=== PATIENT | male | born 1960 | race Caucasian/White ===

== ENCOUNTER 2017-06-22 21:31 | Emergency (ER) | payer OTHER ==
[~2017-06-22] VITALS: Ht 182.9 cm; Wt 108.9 kg
[2017-06-22] MEDS ORDERED: Prednisone50 MG PO (23:21)
[2017-06-22] MEDS ORDERED: BENZ100A PO (23:21)
[2017-06-22] MEDS ORDERED: Zithromax250 MG PO (23:21)
[2017-06-22] MEDS ORDERED: ALBU2.5V5 NEB (23:21)
== END 2017-06-22 23:34 | disposition home or self-care (01) ==
LOC: ER 21:31
DX: R05 Cough (principal); F17.210 Nicotine dependence, cigarettes, uncomplicated; Z79.52 Long term (current) use of systemic steroids; Z79.2 Long term (current) use of antibiotics; Z79.899 Other long term (current) drug therapy
CPT/HCPCS: 71046; 94640; 99284

== ENCOUNTER 2017-07-02 22:00 | Emergency (ER) | payer OTHER ==
[~2017-07-02] VITALS: Ht 182.9 cm; Wt 108.9 kg
[~2017-07-02 22:00] MED LIST: ALBU2.5V5 NEB; BENZ100A PO; Prednisone50 MG PO; Zithromax250 MG PO
[2017-07-02] MEDS ORDERED: Prednisone20 MG PO (23:41)
[2017-07-02] MEDS ORDERED: BENZ100A PO (23:50)
== END 2017-07-03 00:04 | disposition home or self-care (01) ==
LOC: ER 22:00
DX: J06.9 Acute upper respiratory infection, unspecified (principal); F17.210 Nicotine dependence, cigarettes, uncomplicated
CPT/HCPCS: 71046; 93005; 93010; 94640; 99284

== ENCOUNTER 2017-07-31 22:39 | Emergency (ER) | payer OTHER ==
[~2017-07-31 22:39] MED LIST changes: +NICO21TP TD; +Prednisone20 MG PO
== END 2017-07-31 22:52 | disposition left against medical advice (07) ==
LOC: ER 22:39
DX: Z53.21 Procedure and treatment not carried out due to patient leaving prior to being seen by health care provider (principal)

== ENCOUNTER 2018-04-06 02:09 | Emergency (ER) | payer OTHER ==
[~2018-04-06] VITALS: Ht 182.9 cm; Wt 108.9 kg
[2018-04-06] MEDS ORDERED: METF500C PO ×2 (02:24→04:58)
== END 2018-04-06 02:51 | disposition left against medical advice (07) ==
LOC: ER 02:09
DX: Z53.21 Procedure and treatment not carried out due to patient leaving prior to being seen by health care provider (principal)

== ENCOUNTER 2018-04-06 04:42 | Emergency (ER) | payer OTHER ==
[~2018-04-06] VITALS: Ht 182.9 cm; Wt 108.9 kg
[~2018-04-06 04:42] MED LIST changes: +METF500C PO
[2018-04-06] MEDS ORDERED: METF500C PO (04:58)
== END 2018-04-06 05:14 | disposition home or self-care (01) ==
LOC: ER 04:42
DX: Z76.0 Encounter for issue of repeat prescription (principal); Z79.84 Long term (current) use of oral hypoglycemic drugs; E11.9 Type 2 diabetes mellitus without complications; F17.210 Nicotine dependence, cigarettes, uncomplicated
CPT/HCPCS: 99281

== ENCOUNTER 2021-10-26 23:29 | Inpatient (IN) | payer OTHER ==
[~2021-10-26] VITALS: Ht 182.9 cm; Wt 107.2 kg
[2021-10-27 00:05] LABS: BASOPHILS ABSOLUTE AUTO 0.11 K/mm3 (0.00-0.23); BASOPHILS PERCENT AUTO 1 % (0-2); EOSINOPHILS ABSOLUTE AUTO 0.23 K/mm3 (0.00-0.68); EOSINOPHILS PERCENT AUTO 1 % (0-6); Hematocrit 45.3 % (37.0-53.0); Hemoglobin 15.6 g/dL (13.5-17.5); IMMATURE GRAN ABSOLUTE AUTO 0.12 K/mm3 (0.00-0.10); IMMATURE GRAN PERCENT AUTO 1 % (0-1); LYMPHOCYTES ABSOLUTE AUTO 1.04 K/mm3 (0.84-5.20); LYMPHOCYTES PERCENT AUTO 4 % (21-46); MONOCYTES ABSOLUTE AUTO 1.04 K/mm3 (0.16-1.47); MONOCYTES PERCENT AUTO 4 % (4-13); Mean Corpuscular HGB 29.7 pg (26.0-34.0); Mean Corpuscular HGB Conc 34.4 g/dL (31.5-36.5); Mean Corpuscular Volume 86 fL (80-100); NEUTROPHILS ABSOLUTE AUTO 21.34 K/mm3 (1.96-9.15); NEUTROPHILS PERCENT AUTO 89 % (41-73); Platelet Count 291 K/mm3 (150-400); RDW Coefficient Variation 12.8 % (11.7-14.2); RDW Standard Deviation 39.9 fL (35.1-46.3); Red Blood Cell Count 5.25 M/mm3 (4.30-5.90); White Blood Cell Count 23.88 K/mm3 (4.00-11.30)
[2021-10-27 00:29] LABS: Alanine Aminotransfer (ALT/SGP 13 U/L (12-78); Albumin, Blood 3.4 g/dL (3.4-5.0); Alk Phos 112 U/L (50-136); Anion Gap 3 mmol/L (6-16); Aspartate Aminotrans (AST/SGOT 20 U/L (12-37); Bilirubin, Total 0.6 mg/dL (0.1-1.0); Blood Urea Nitrogen 13 mg/dL (8-24); Bun/Creatinine Ratio 16.6 (12.0-20.0); CO2, Blood 30 mmol/L (21-32); Calcium, Blood 8.9 mg/dL (8.5-10.1); Chloride, Blood 104 mmol/L (98-108); Creatinine, Blood 0.78 mg/dL (0.60-1.20); Ethanol (Alcohol), Blood, Med <3 mg/dL; Globulin, Blood 3.5 g/dL (2.2-4.0); Glomerular Filtration Rate 101 (60-); Glucose, Blood 209 mg/dL (70-99); Potassium, Blood 3.5 mmol/L (3.5-5.5); Sodium, Blood 137 mmol/L (136-145); Total Protein, Blood 6.9 g/dL (6.4-8.2)
[2021-10-27 00:52] LABS: Influenza A, PCR NEGATIVE (NEGATIVE); Influenza B, PCR NEGATIVE (NEGATIVE); Resp Syncytial Virus, PCR NEGATIVE (NEGATIVE); SARS-Cov-2 (COVID-19) PCR, MMC NEGATIVE (NEGATIVE)
[2021-10-27 04:15] LABS: U Amphetamine Screen DETECTED; U Barbituate Screen Not Detected; U Benzodiazapine Screen Not Detected; U Buprenorphine Screen Not Detected; U Cannabinoids Screen Not Detected; U Cocaine Screen Not Detected; U Methadone Screen Not Detected; U Methamphetamine Screen DETECTED; U Opiates Screen Not Detected; U Oxycodone Screen Not Detected; U Phencyclidine Screen Not Detected; U Propoxyphene Screen Not Detected
[2021-10-27 05:53] LABS: Albumin, Blood 2.9 g/dL (3.4-5.0); Anion Gap 9 mmol/L (6-16); Blood Urea Nitrogen 13 mg/dL (8-24); Bun/Creatinine Ratio 19.9 (12.0-20.0); CO2, Blood 25 mmol/L (21-32); Calcium, Blood 7.9 mg/dL (8.5-10.1); Chloride, Blood 107 mmol/L (98-108); Creatinine, Blood 0.65 mg/dL (0.60-1.20); Glomerular Filtration Rate 107 (60-); Glucose, Blood 227 mg/dL (70-99); Phosphorus, Blood 3.6 mg/dL (2.5-4.9); Potassium, Blood 3.8 mmol/L (3.5-5.5); Sodium, Blood 141 mmol/L (136-145)
[2021-10-27 06:13] LABS: Hematocrit 44.3 % (37.0-53.0); Hemoglobin 15.2 g/dL (13.5-17.5); Mean Corpuscular HGB 29.9 pg (26.0-34.0); Mean Corpuscular HGB Conc 34.3 g/dL (31.5-36.5); Mean Corpuscular Volume 87 fL (80-100); Mean Platelet Volume 10.1 fL (9.1-12.4); Platelet Count 282 K/mm3 (150-400); RDW Coefficient Variation 12.7 % (11.7-14.2); RDW Standard Deviation 40.4 fL (35.1-46.3); Red Blood Cell Count 5.09 M/mm3 (4.30-5.90); White Blood Cell Count 36.35 K/mm3 (4.00-11.30)
[2021-10-27 06:38] LABS: BAND PERCENT MAN 16 % (0-8); BASOPHILS PERCENT MAN 0 % (0-2); EOSINOPHILS ABSOLUTE MAN 0.36 K/mm3 (0.00-0.68); EOSINOPHILS PERCENT MAN 1 % (0-6); LYMPHOCYTES ABSOLUTE MAN 2.18 K/mm3 (0.84-5.20); LYMPHOCYTES PERCENT MAN 6 % (21-46); MONOCYTES ABSOLUTE MAN 1.09 K/mm3 (0.16-1.47); MONOCYTES PERCENT MAN 3 % (4-13); NEUTROPHILS ABSOLUTE MAN 32.71 K/mm3 (1.96-9.15); SEG NEUTROPHILS PERCENT MAN 74 % (41-73); TOTAL CELLS COUNTED 100
--- NOTE | 2021-10-27 07:35 | NUR ---
ASSUMED CARE PT ARRIVED AT APPROX 06:15 VIA GURNEY. PT ALERT AND ORIENTED. DENIED CHEST PAIN OR SOB. PT ON 2L NC WITH SATS ABOVE 92%. BILAT LOWER EXT TENDER TO TOUCH, RED WITH DISCOLORATION, PICS IN CHART. HR IN THE 90-100'S. CALL LIGHT IS WITHIN REACH.
--- NOTE | 2021-10-27 10:46 | NUR ---
CARE ASSUMPTION THIS RN ASSUMED CARE AT 0700 FROM [facility]. VSS. TELE SR/ST 80-105. PATIENT IS ALERT AND ORIENTED X4. PERRLA. PATIENT REPORTS NUMBNESS AND TINGLING TO HIS UPPER AND LOWER EXTREMITIES THAT PATIENT STATES IS BASELINE. PATIENT REPORTS NO CHEST PAIN/PRESSURE. EDEMA IN LOWER EXTREMITIES BILATERALLY +2. STRONG PULSES RADIAL AND PEDIS BILATERALLY. PATIENT ABD IS DISTENDED WHICH PATIENT STATES IS NORMAL, AND IT IS FIRM AND ACTIVE. PATIENT HAD A BM THIS AM. PATIENT HAS URGENCY WITH URINATION. BEDSIDE URINAL IS CLOSE BY TO HELP WITH THIS. PATIENT REPORTS NO SHORTNESS OF BREATH. CLEAR UPPER LOBES AND DIM LOWER LOBES. PATIENT HAS CELLULITIS TO BILATERAL LOWER EXTREMITIES. IT IS RED AND WARM TO TOUCH. PICTURES IN THE CHART. PATIENT IS INDEPDENT IN ADLS AND WALKING, BUT THIS RN EDUCATED THE PATIENT TO CALL FOR A STAND BY MARTINE DUE TO HAVING FLUIDS GOING. PATIENT VERBALIZED UNDERSTANDING. PATIENT IS IN THE BEDSIDE CHAIR AND CALL LIGHT WITHIN REACH. MD ZALDIVAR AND ISELA IN TO SEE THE PATIENT THIS AM AND DISCUSSED PLAN OF CARE. PLAN OF CARE IS UP TO DATE.
--- NOTE | 2021-10-27 17:54 | NUR ---
SHIFT SUMMARY PATIENT NEURO REMAINS THE SAME. PATIENT HAS SLEPT OFF AND ON THROUGHOUT THE DAY. PATIENT SON CAME INTO VISIT HIM. THIS RN UPDATED THE FAMILY ON PATIENT CONDITION. NO ACUTE CHANGES THIS SHIFT. CALL LIGHT WITHIN REACH AND BED IN LOWEST POSITION. WILL CONTINUE TO MONITOR AND PROVIDE CARE UNTIL HAND OFF WITH NEXT SHIFT.
[2021-10-28 04:57] LABS: BASOPHILS ABSOLUTE AUTO 0.09 K/mm3 (0.00-0.23); BASOPHILS PERCENT AUTO 1 % (0-2); EOSINOPHILS ABSOLUTE AUTO 0.16 K/mm3 (0.00-0.68); EOSINOPHILS PERCENT AUTO 1 % (0-6); Hematocrit 44.2 % (37.0-53.0); Hemoglobin 14.8 g/dL (13.5-17.5); IMMATURE GRAN ABSOLUTE AUTO 0.12 K/mm3 (0.00-0.10); IMMATURE GRAN PERCENT AUTO 1 % (0-1); LYMPHOCYTES ABSOLUTE AUTO 1.32 K/mm3 (0.84-5.20); LYMPHOCYTES PERCENT AUTO 7 % (21-46); MONOCYTES PERCENT AUTO 6 % (4-13); Mean Corpuscular HGB 29.4 pg (26.0-34.0); Mean Corpuscular HGB Conc 33.5 g/dL (31.5-36.5); Mean Corpuscular Volume 88 fL (80-100); Mean Platelet Volume 10.5 fL (9.1-12.4); NEUTROPHILS PERCENT AUTO 85 % (41-73); Platelet Count 246 K/mm3 (150-400); RDW Coefficient Variation 12.9 % (11.7-14.2); Red Blood Cell Count 5.03 M/mm3 (4.30-5.90); White Blood Cell Count 17.99 K/mm3 (4.00-11.30)
[2021-10-28 05:15] LABS: Albumin, Blood 2.9 g/dL (3.4-5.0); Anion Gap 3 mmol/L (6-16); Blood Urea Nitrogen 12 mg/dL (8-24); Bun/Creatinine Ratio 17.3 (12.0-20.0); CO2, Blood 31 mmol/L (21-32); Calcium, Blood 8.5 mg/dL (8.5-10.1); Chloride, Blood 103 mmol/L (98-108); Creatinine, Blood 0.69 mg/dL (0.60-1.20); Glomerular Filtration Rate 105 (60-); Glucose, Blood 187 mg/dL (70-99); Phosphorus, Blood 2.2 mg/dL (2.5-4.9); Potassium, Blood 3.4 mmol/L (3.5-5.5); Sodium, Blood 137 mmol/L (136-145)
--- NOTE | 2021-10-28 06:00 | NUR ---
SHIFT SUMMARY PT A&OX4. AFEBRILE DURING START OF SHIFT, TYLENOL GIVEN X1. SP02>90% ON RA WHILE AWAKE, 2L NC NEEDED DURING SLEEPING, W/O WOULD DIP TO HIGH 80'S. C/O OF COUGH. CALL PLACED TO MD BENTON. MD BENTON W/ ORDERS FOR COUGH MEDS. TELEMETRY SHOWS MOSTLY NSR/SIT, HR 80'S-100S. DENIES PAIN IN LEGS UNLESS BEING TOUCHED. USED URINAL AT BEDSIDE. UP TO BATHROOM TO HAVE LARGE BM X1. LAB CALLED TO REPORT POSITIVE BLOOD CULTURE: GRAM + COCCI IN CLUSTERS. SLEPT MOST OF NIGHT. CALL LIGHT IN REAC.
--- NOTE | 2021-10-28 12:16 | NUR ---
AM NOTE: PATIENT ALERT AND ORIENTED X4. IRRITATED AT TIMES. ABLE OT COMMUNICATE NEEDS AND COOPERATIVE WITH CARES. ON ROOM AIR SATING ABOVE 94%. TELE SHOWING SINUS RHYTHM WITH HR AVERAGING 90'S. AT TIMES PATIENT HAVING SMALL BOUTS OF SVT, NONSYMPTOMATIC. PLAN FOR ECHO TODAY. DENIES CHEST PAIN/PRESSURE. VITAL SIGNS STABLE. DENIES ABDOMINAL PAIN/NAUSEA. EATING WELL. ACHS BLOOD SUGAR CHECKS WITH INSULIN. DISTENDED ABDOMEN, PATIENT STATES NORMAL. BILATERAL LOWER EXTREMITIES RED/WARM AND SWOLLEN. PATIENT STATES THEY DO NOT HURT UNLESS YOU TOUCH THEM. RIGHT POSTERIOR CALF ABRASION/WOUND. CLEANED AND DRESSED THIS AM. SCABS SCATTERED TO BLE. LR AND POTASSIUM PHOS INFUSING AT THIS TIME. CALL LIGHT IN REACH. SITTING IN RECLINER AT THIS TIME. BLOOD CULTURES DRAWN THIS AFTERNOON. WILL CONTINUE TO MONITOR.
--- NOTE | 2021-10-28 18:02 | NUR ---
SHIFT SUMMARY: NO ACUTE CHANGES THROUGHOUT DAY. PATIENT NEURO REMAINS UNCHANGED. TELE SHOWING SINUS RHYTHM WITH HR 90'S. PLAN FOR ECHO TOMORROW. DENIES CHEST PAIN/PRESSURE. ON ROOM AIR SATING 90'S. 1L LR INFUSED WELL K PHOS. ANTIBIOTICS INFUSED THIS AFTERNOON. VITAL SIGNS REMAIN STABLE. CALL LIGHT IN REACH. WILL CONITNUE TO MONITOR AND REPORT OFF TO ONCOMING RN.
[2021-10-29 05:12] LABS: BASOPHILS ABSOLUTE AUTO 0.08 K/mm3 (0.00-0.23); BASOPHILS PERCENT AUTO 1 % (0-2); EOSINOPHILS ABSOLUTE AUTO 0.22 K/mm3 (0.00-0.68); EOSINOPHILS PERCENT AUTO 1 % (0-6); Hematocrit 40.7 % (37.0-53.0); Hemoglobin 13.8 g/dL (13.5-17.5); IMMATURE GRAN ABSOLUTE AUTO 0.08 K/mm3 (0.00-0.10); IMMATURE GRAN PERCENT AUTO 1 % (0-1); LYMPHOCYTES ABSOLUTE AUTO 1.63 K/mm3 (0.84-5.20); LYMPHOCYTES PERCENT AUTO 11 % (21-46); MONOCYTES ABSOLUTE AUTO 1.37 K/mm3 (0.16-1.47); MONOCYTES PERCENT AUTO 9 % (4-13); Mean Corpuscular HGB 29.4 pg (26.0-34.0); Mean Corpuscular HGB Conc 33.9 g/dL (31.5-36.5); Mean Corpuscular Volume 87 fL (80-100); Mean Platelet Volume 10.6 fL (9.1-12.4); NEUTROPHILS ABSOLUTE AUTO 11.85 K/mm3 (1.96-9.15); NEUTROPHILS PERCENT AUTO 78 % (41-73); Platelet Count 247 K/mm3 (150-400); RDW Coefficient Variation 12.7 % (11.7-14.2); RDW Standard Deviation 40.4 fL (35.1-46.3); White Blood Cell Count 15.23 K/mm3 (4.00-11.30)
[2021-10-29 05:57] LABS: Albumin, Blood 2.7 g/dL (3.4-5.0); Anion Gap 7 mmol/L (6-16); Blood Urea Nitrogen 11 mg/dL (8-24); Bun/Creatinine Ratio 17.3 (12.0-20.0); CO2, Blood 27 mmol/L (21-32); Calcium, Blood 8.2 mg/dL (8.5-10.1); Chloride, Blood 103 mmol/L (98-108); Creatinine, Blood 0.64 mg/dL (0.60-1.20); Glomerular Filtration Rate 107 (60-); Glucose, Blood 195 mg/dL (70-99); Phosphorus, Blood 3.1 mg/dL (2.5-4.9); Potassium, Blood 3.5 mmol/L (3.5-5.5); Sodium, Blood 137 mmol/L (136-145)
--- NOTE | 2021-10-29 06:05 | NUR ---
SHIFT SUMMARY PT ALERT, AGITATED. SP02>90% ON 2L NC WHILE SLEEPING, RA WHILE AWAKE. MOIST, HARSH COUGH. COUGH MEDS GIVEN X1. TELEMETRY SHOWS MOSTLY SINUS TACH, 100'S. DOES INCREASED TO 140'S FREQUENTLY. FEBRILE. TEMP 100.5-101 THIS SHIFT, ORALLY. PT C/O OF CHILLS, BEING COLD. UP TO BATHROOM TO URINATE. SLEPT OFF AND ON DURING NIGHT. SON IN ROOM SLEEPING DURING SHIFT. CALL LIGHT IN REACH.
--- NOTE | 2021-10-29 09:12 | NUR ---
AM NOTE: PATIENT ALERT AND ORIENTED X4. NEURO AT BASELINE. NUMBNESS AND TINGLING TO HANDS AND FEET. UP IND TO BATHROOM. SON IN ROOM THIS AM. ON ROOM AIR WHEN AWAKE AND SATING ABOVE 94%. DENIES COUGH. AT TIMES SOB WHEN UP MOVING AROUND. LUNGS SOUNDING CLEAR AND DIM IN BASES. DENIES ABDOMINAL PAIN/NAUSEA. ATE BREAKFAST THIS AM. DISTENDED ABDOMEN WITH HX OF HERNIA REPAIR. USING URINAL AT BEDSIDE. TELE SHOWING SINUS RHYTHM - SINUS TACH WITH HR 80-100'S. AT TIMES UP TO 120-130'S WHEN UP MOVING AROUND. EPISODES OF SVT YESTERDAY, ALTHOUGH NO NEW TELE EVENTS THIS AM. DENIES CHEST PAIN/PRESSURE. DENIES PALPIATIONS. BLE EDEMA. BLE CELLULITIS/REDNESS. ABRASION/WOUND TO RIGHT POSTERIOR CALF - CLEANED AND DRESSED THIS AM. SCATTERED SCABS. DENIES NEEDS AT THIS TIME. ANTIBIOTICS INFUSED THIS AM. CALL LIGHT IN REACH. WILL CONTINUE TO MONITOR.
--- NOTE | 2021-10-29 12:28 | NUR ---
CONVERSION TO AFIB AT 11:50ISH. HR SUSTAINING 140'S ON AVERAGE AT TIMES TOUCHING 150-160'S. NONSYMPTOMATIC. LAYING IN BED. BP STABLE, SEE CHARTED VITALS. CALL PLACED TO DR. ZALDIVAR. SEE EMAR FOR IV METOPROLOL THAT WAS GIVEN. PATIENT HR REMAINS 130'S-140'S. CALL PLACED TO DR. ZALDIVAR TO BE UPDATED ON HR POST IV METOPROLOL, MESSAGE LEFT WILL TRY TO CALL AGAIN.
--- NOTE | 2021-10-29 12:46 | NUR ---
SPOKE WITH DR WEISS REGARDING HR SUSTAINING 140'S POST IV METOPROLOL. PLAN FOR IV PUSH CARDIZEM, AND 1X ORDER STAT METOPROLOL TARTRATE. NO ORDERS FOR THIS RN TO PLACE AT THIS TIME. VERBAL ORDERS TO MONITOR FOR 2 HOURS POST ADMINISTRATION OF IV CARDIZEM AND PO METOPROLOL. IF HR NOT BETTER IN [address] CALL TO DR. WEISS.
--- NOTE | 2021-10-29 13:17 | NUR ---
IV PUSH CARDIZEM GIVEN WELL PO METOPROLOL TARTRATE. BP REMAINS STABLE. WILL CONTINUE TO MONITOR FOR [address] ZALDIVAR AND DR. WEISS. PATIETN DENIES SYMPTOMS. LAYING IN BED AT THIS TIME WANTING TO TAKE A NAP.
--- NOTE | 2021-10-29 15:52 | NUR ---
DR. WEISS UPDATED ON HR. HR TRENDING 110'S. NO NEW ORDERS AT THIS TIME. PLAN FOR PATIENT TO GET SCHEDULED DOSE OF PO METOPROLOL TARTRATE THIS EVENING AND CONTINUE TO MONITOR. VITAL SIGNS STABLE. DENIES NEEDS. WILL CONTINUE TO MONITOR.
--- NOTE | 2021-10-29 18:10 | NUR ---
SHIFT SUMMARY: PATIENT SLEEPING AT THIS TIME. HR 110-120'S. DENIES SYMPTOMS. BP STABLE. ORAL TEMP MAX 99.0. REMAINS ON ROOM AIR. SON REMAINS AT BEDSIDE. ANTIBIOTICS INFUSED. RIGHT POSTERIOR CALF WOUND CLEANSED AND DRESSING CHANGED. PATIENT COMPLAINS OF MOUTH/GUMS BEING SORE. THIS RN ASSESSED. GUMS PINK/RED IN COLOR SOME BROKEN/DECAYING TEETH. [facility] SOFT GROUND DIET ORDERED. NO OPEN SORES NOTED. COMPLAINED OF HEADACHE THIS SHIFT, MEDICATED PER EMAR WITH GOOD RELIEF. WILL CONTINUE TO MONITOR AND REPORT OFF TO ONCOMING RN.
[2021-10-30 05:07] LABS: BASOPHILS ABSOLUTE AUTO 0.07 K/mm3 (0.00-0.23); BASOPHILS PERCENT AUTO 1 % (0-2); EOSINOPHILS ABSOLUTE AUTO 0.23 K/mm3 (0.00-0.68); EOSINOPHILS PERCENT AUTO 2 % (0-6); Hematocrit 41.7 % (37.0-53.0); Hemoglobin 14.4 g/dL (13.5-17.5); IMMATURE GRAN ABSOLUTE AUTO 0.06 K/mm3 (0.00-0.10); IMMATURE GRAN PERCENT AUTO 1 % (0-1); LYMPHOCYTES ABSOLUTE AUTO 2.53 K/mm3 (0.84-5.20); LYMPHOCYTES PERCENT AUTO 20 % (21-46); MONOCYTES ABSOLUTE AUTO 1.48 K/mm3 (0.16-1.47); MONOCYTES PERCENT AUTO 12 % (4-13); Mean Corpuscular HGB 29.6 pg (26.0-34.0); Mean Corpuscular HGB Conc 34.5 g/dL (31.5-36.5); Mean Corpuscular Volume 86 fL (80-100); Mean Platelet Volume 10.6 fL (9.1-12.4); NEUTROPHILS ABSOLUTE AUTO 8.27 K/mm3 (1.96-9.15); NEUTROPHILS PERCENT AUTO 65 % (41-73); Platelet Count 286 K/mm3 (150-400); RDW Coefficient Variation 12.7 % (11.7-14.2); RDW Standard Deviation 39.6 fL (35.1-46.3); Red Blood Cell Count 4.86 M/mm3 (4.30-5.90); White Blood Cell Count 12.64 K/mm3 (4.00-11.30)
[2021-10-30 05:29] LABS: Albumin, Blood 2.6 g/dL (3.4-5.0); Anion Gap 8 mmol/L (6-16); Blood Urea Nitrogen 13 mg/dL (8-24); Bun/Creatinine Ratio 21.6 (12.0-20.0); CO2, Blood 26 mmol/L (21-32); Calcium, Blood 8.6 mg/dL (8.5-10.1); Chloride, Blood 103 mmol/L (98-108); Glomerular Filtration Rate 109 (60-); Glucose, Blood 175 mg/dL (70-99); Phosphorus, Blood 3.9 mg/dL (2.5-4.9); Potassium, Blood 3.9 mmol/L (3.5-5.5); Sodium, Blood 137 mmol/L (136-145)
--- NOTE | 2021-10-30 06:21 | NUR ---
SHIFT SUMMARY PT ALERT, SP02>92% ON RA. PT AFIB, HR 130'S AT REST AT START OF SHIFT. PRN LOPRESSOR PUSH GIVEN X1, W/ HR DECREASING TO 110'S MOSTLY AT REST. HR UP TO 160'S WHEN AMBULATING. C/O OF HEADACHE, MEDICATED PER EMAR X1. UP TO BATHROOM INDEPENDENTLY TO VOID. SON IN ROOM SLEEPING. PT SLEPT MOST OF NIGHT. CALL CYNTHIA SCALES.
--- NOTE | 2021-10-30 07:23 | NUR ---
ASSUMED CARE: PT RESTING QUIETLY IN BED AT THIS TIME. AFIB AT 107 ON TELE. SON SLEEPING AT BEDSIDE IN RECLINER. NO ACUTE NEEDS AT THIS TIME.
--- NOTE | 2021-10-30 13:45 | NUR ---
WOUND CARE NURSE AT BEDSIDE PERFORMING DRESSING CHANGES AT THIS TIME.
--- NOTE | 2021-10-30 14:27 | NUR ---
WOUND CARE ASSESSMENT AND PHOTOS IN CHART. WOUND CARE ORDERS IN [facility]
--- NOTE | 2021-10-30 17:19 | NUR ---
SHIFT SUMMARY: PT INDEPENDENT IN ROOM WITH SON AT BEDSIDE THIS SHIFT. AFTER AM DOSE OF METOPROLOL, HR CONTROLLED IN THE LOW 100S TO 120S. WOUND CARE NURSE CAME TO EVALUATE PT AND CHANGE DRESSINGS. NO FURTHER NEEDS OR CONCERNS AT THIS TIME.
[2021-10-31 04:42] LABS: BASOPHILS ABSOLUTE AUTO 0.09 K/mm3 (0.00-0.23); BASOPHILS PERCENT AUTO 1 % (0-2); EOSINOPHILS PERCENT AUTO 3 % (0-6); Hematocrit 40.5 % (37.0-53.0); IMMATURE GRAN ABSOLUTE AUTO 0.09 K/mm3 (0.00-0.10); IMMATURE GRAN PERCENT AUTO 1 % (0-1); LYMPHOCYTES ABSOLUTE AUTO 2.61 K/mm3 (0.84-5.20); LYMPHOCYTES PERCENT AUTO 22 % (21-46); MONOCYTES ABSOLUTE AUTO 1.54 K/mm3 (0.16-1.47); MONOCYTES PERCENT AUTO 13 % (4-13); Mean Corpuscular HGB 29.4 pg (26.0-34.0); Mean Corpuscular HGB Conc 34.6 g/dL (31.5-36.5); Mean Corpuscular Volume 85 fL (80-100); Mean Platelet Volume 10.4 fL (9.1-12.4); NEUTROPHILS ABSOLUTE AUTO 7.44 K/mm3 (1.96-9.15); NEUTROPHILS PERCENT AUTO 62 % (41-73); Platelet Count 302 K/mm3 (150-400); RDW Coefficient Variation 12.7 % (11.7-14.2); RDW Standard Deviation 39.4 fL (35.1-46.3); Red Blood Cell Count 4.76 M/mm3 (4.30-5.90); White Blood Cell Count 12.07 K/mm3 (4.00-11.30)
--- NOTE | 2021-10-31 06:21 | NUR ---
SHIFT SUMMARY PATIENT ALERT AND ORIENTED, AGITATES EASILY. STATES THAT HE IS READY TO LEAVE AND GO HOME. VSS, AFIB AT START OF SHIFT BUT PATIENT CONVERTED TO SR SHORTLY AFTER ASSESSMENT, SEE CARDIAC REASSESSMENT. PATIENT ON RA WITH O2 SAT >90%. INDEPENDENT IN THE ROOM. SON REMAINS AT BEDSIDE DURING THE NIGHT. NO SIGNIFICANT CHANGES THIS SHIFT, WILL REPORT TO DAY SHIFT RN.
[2021-10-31] MEDS ORDERED: METO100 PO (12:13)
[2021-10-31] MEDS ORDERED: NICO21TP TOP (12:27)
[2021-10-31] MEDS ORDERED: VISBIOME 112.51 EACH PO (12:28)
[2021-10-31] MEDS ORDERED: XARELTO20 MG PO (12:28)
[2021-10-31] MEDS ORDERED: CEPH500 PO (12:30)
--- NOTE | 2021-10-31 14:48 | NUR ---
DISCHARGE SUMMARY PT LEFT THE BUILDING ON THEIR OWN, PT DECLINED BEING ESCORTED OR TRANSPORTED OUT BY WHEELCHAIR. PT WAS DISCHARGED HOME BY PERSONAL VEHICLE. ALL PERSONAL BELONGINGS AND DISCHARGE INSTRUCTIONS WERE IN THEIR POSSESSION AT THE TIME OF DISCHARGE. PT DID NOT EXPRESS OR ANY QUESTIONS OR CONCERNS.
== END 2021-10-31 14:06 | disposition home or self-care (01) | DRG 872 ==
LOC: ER 23:29 → PCU 10-27 03:35
PROVIDERS: Emergency Medicine; Family Medicine; Physician Assistant; ADMIT Family Medicine
DX: A40.0 Sepsis due to streptococcus, group A (principal); L03.115 Cellulitis of right lower limb; I47.1 Supraventricular tachycardia; L03.116 Cellulitis of left lower limb; I48.20 Chronic atrial fibrillation, unspecified; Z20.822 Contact with and (suspected) exposure to COVID-19; E11.65 Type 2 diabetes mellitus with hyperglycemia; I48.0 Paroxysmal atrial fibrillation; R65.20 Severe sepsis without septic shock; F15.90 Other stimulant use, unspecified, uncomplicated; Z71.51 Drug abuse counseling and surveillance of drug abuser; F17.210 Nicotine dependence, cigarettes, uncomplicated; Z98.890 Other specified postprocedural states
CPT/HCPCS: 0241U; 36415; 71045; 80053; 80069; 82947; 83036; 83605; 84443; 85025; 87040; 87147; 93005; 93010; 93306; 99285-25; A9270; G0480; J0690; J1650; J1815; J7030; J7060; J7120

== ENCOUNTER → 2022-05-28 | Outpatient (CLI) | payer OTHER ==
[~2022-05-28] MED LIST changes: +CEPH500 PO; +METO100 PO; +NICO21TP TOP; +VISBIOME 112.51 EACH PO; +XARELTO20 MG PO
== END | disposition home or self-care (01) ==
LOC: LAB SHORT 14:03
DX: L03.115 Cellulitis of right lower limb (principal)
CPT/HCPCS: 87070; 87147; 87205

== ENCOUNTER → 2022-06-14 | Outpatient (CLI) | payer OTHER | END | disposition home or self-care (01) | LOC: LAB SHORT 07:28 → PLD 07:28 | DX: L60.2 Onychogryphosis (principal); B35.1 Tinea unguium | CPT/HCPCS: 88305; 88312 ==

== ENCOUNTER 2022-07-31 00:59 | Inpatient (IN) | payer OTHER ==
[2022-07-31] VITALS (26 sets, daily range): BP systolic 85–137; BP diastolic 60–108
[~2022-07-31] VITALS: Ht 182.9 cm; Wt 109.1 kg
[~2022-07-31 00:59] MED LIST changes: -METO100 PO; +METO100ER PO
[2022-07-31 02:00] LABS: BASOPHILS ABSOLUTE AUTO 0.13 K/mm3 (0.00-0.23); BASOPHILS PERCENT AUTO 1 % (0-2); EOSINOPHILS ABSOLUTE AUTO 0.09 K/mm3 (0.00-0.68); EOSINOPHILS PERCENT AUTO 1 % (0-6); Hematocrit 51.7 % (37.0-53.0); Hemoglobin 16.6 g/dL (13.5-17.5); IMMATURE GRAN ABSOLUTE AUTO 0.04 K/mm3 (0.00-0.10); IMMATURE GRAN PERCENT AUTO 0 % (0-1); LYMPHOCYTES ABSOLUTE AUTO 1.91 K/mm3 (0.84-5.20); LYMPHOCYTES PERCENT AUTO 16 % (21-46); MONOCYTES ABSOLUTE AUTO 1.62 K/mm3 (0.16-1.47); MONOCYTES PERCENT AUTO 14 % (4-13); Mean Corpuscular HGB 28.4 pg (26.0-34.0); Mean Corpuscular HGB Conc 32.1 g/dL (31.5-36.5); Mean Corpuscular Volume 89 fL (80-100); Mean Platelet Volume 10.2 fL (9.1-12.4); NEUTROPHILS ABSOLUTE AUTO 8.21 K/mm3 (1.96-9.15); NEUTROPHILS PERCENT AUTO 68 % (41-73); Platelet Count 360 K/mm3 (150-400); RDW Coefficient Variation 13.8 % (11.7-14.2); RDW Standard Deviation 44.3 fL (35.1-46.3); Red Blood Cell Count 5.84 M/mm3 (4.30-5.90)
[2022-07-31 02:22] LABS: Albumin, Blood 3.3 g/dL (3.4-5.0); Albumin/Globulin Ratio 0.9 (0.8-1.8); Bilirubin, Total 1.9 mg/dL (0.1-1.0); Calcium, Blood 8.9 mg/dL (8.5-10.1); Creatinine, Blood 0.95 mg/dL (0.60-1.20); Globulin, Blood 3.5 g/dL (2.2-4.0); Magnesium, Blood 2.1 mg/dL (1.6-2.4); Potassium, Blood 4.2 mmol/L (3.5-5.5); Total Protein, Blood 6.8 g/dL (6.4-8.2)
[2022-07-31 06:05] LABS: Anti-Xa UFH, PHA Monitoring <0.10 IU/mL
[2022-07-31 06:12] LABS: International Normalized Ratio 1.64; Prothrombin Time Results 16.7 Sec (9.7-11.5)
[2022-07-31 06:19] LABS: Source, Urine Straight Cath
[2022-07-31 06:23] LABS: Appearance, Urine Clear (Clear); Blood, Urine Neg (Neg); Color, Urine Amber (P-Yellow); Glucose Qualitative, Urine Neg (Neg); Ketones, Urine Neg (Neg); Leukocyte Esterase, Urine Neg (Neg); Nitrite, Urine Neg (Neg); Protein, Urine 2+ (Neg); Specific Gravity, Urine 1.025 (1.003-1.022); Urobilinogen, Urine 4+ (Normal)
[2022-07-31 06:30] LABS: Bilirubin, Urine 2+ (Neg)
[2022-07-31 06:33] LABS: Hyaline Casts 25-50 /lpf (0-2); Mucus Heavy (0-Heavy)
[2022-07-31 06:34] LABS: Red Blood Cells, Urine 0-2 /hpf (0-2)
[2022-07-31 06:35] LABS: Bacteria Many /hpf; Squamous Epithelial Cells Rare /hpf (Few)
--- NOTE | 2022-07-31 08:57 | NUR ---
ASSUMPTION OF CARE PT ARIVED TO UNIT BY HOSPITAL BED AT 0747. PT ALERT AND ORIENTED. REPORT RECEIVED FROM CARMEN RN. PT TRANSFERED TO ICU BED, 4 PERSON TRANSFER WITH SLIDER SHEET. PT SOB WITH EXERTION. O2 SAT >90% ON 2L VIA NC. HR 100'S AFIB, BP STABLE. CARDIZEM GTT INFUSING AT 20MG/HR. SPOKE WITH DR. RODRÍGUEZ IN PERSON REGUARDING HEPARIN GTT. DR. RODRÍGUEZ STATES HE WILL REVEIW ORDERS.
--- NOTE | 2022-07-31 14:39 | NUR ---
PT UPDATE PT RESTLESS IN BED. PT ADAMENT ABOUT GETTING UP TO USE COMODE. REITTERATED THE IMPORTANCE OF WEARING OXYGEN AND REMAINING IN BED NOT TO INCREASE OXYGEN DEMAND. PT CONTINUES TO PULL OFF OXYGEN MONITOR, NASAL CANULA AND ANNOUNCER. PT TOLERATES WEARING THE CPAP FOR SHORT PERIODS OF TIME BEFORE PULLING IT OFF.
--- NOTE | 2022-07-31 17:50 | NUR ---
SHIFT SUMMARY PT CONTINUES TO REST IN BED. HR 100'S, BP STABLE. CARDIZEM GTT ON SB SINCE 1120. PO METOPROLOL STARTED. PT ANSWERS QUESTIONS APPROPRIATELY AND FOLLOWS COMMANDS. PT RESTLESS AT TIMES, REMOVES 02 PROBE, OXYGEN AND WAFER MOUNTER. INSISTENT ON BEING UP TO COMODE TO VOID DESPITE SOB. O2 >90% ON HIGH FLOW NC AT 8LPM. PT TOLERATES SHORT PERIODS ON CPAP BEFORE REMOVING IT. ABDOMEN DISTENDED, SPOKE WITH DR. RODRÍGUEZ. PT HAD ABDOMINAL ULTRASOUND. PT STATES THAT ABDOMINAL DISTENTION IS NORMAL FOR HIM. WILL CONTINUE TO MONITOR AND GIVE REPORT TO ONCOMING RN.
--- NOTE | 2022-07-31 19:30 | NUR ---
ASSUMED CARE PT A&O X4; PT IS COOPERATIVE, BUT FREQUENTLY PULLS OUT OXYGEN, REPLIES "I DON'T KNOW" WHEN ASKED WHY. SPO2 >92% ON 8L HFNC; MAP >65; HR IN 90-120'S. LUNG SOUNDS ARE COARSE, BT ACTIVE. ABDOMEN IS FIRM AND DISTENDED. PT UP TO BEDSIDE COMMODE (REFUSES BEDPAN), AND HAD LARGE LIQUID LIGHT BROWN STOOL AND URINATED DARK YELLOW URINE ONTO THE FLOOR. TRANSFERED TO U 12 @ 2015 W/ NO DIFFICULTIES.
[2022-08-01] VITALS (9 sets, daily range): BP systolic 83–115; BP diastolic 60–96
[2022-08-01 04:26] LABS: BASOPHILS ABSOLUTE AUTO 0.09 K/mm3 (0.00-0.23); BASOPHILS PERCENT AUTO 1 % (0-2); EOSINOPHILS ABSOLUTE AUTO 0.15 K/mm3 (0.00-0.68); EOSINOPHILS PERCENT AUTO 1 % (0-6); Hematocrit 48.6 % (37.0-53.0); Hemoglobin 15.6 g/dL (13.5-17.5); IMMATURE GRAN ABSOLUTE AUTO 0.03 K/mm3 (0.00-0.10); IMMATURE GRAN PERCENT AUTO 0 % (0-1); LYMPHOCYTES ABSOLUTE AUTO 2.06 K/mm3 (0.84-5.20); LYMPHOCYTES PERCENT AUTO 20 % (21-46); MONOCYTES ABSOLUTE AUTO 1.46 K/mm3 (0.16-1.47); MONOCYTES PERCENT AUTO 14 % (4-13); Mean Corpuscular HGB 28.3 pg (26.0-34.0); Mean Corpuscular HGB Conc 32.1 g/dL (31.5-36.5); Mean Corpuscular Volume 88 fL (80-100); Mean Platelet Volume 10.7 fL (9.1-12.4); NEUTROPHILS ABSOLUTE AUTO 6.65 K/mm3 (1.96-9.15); NEUTROPHILS PERCENT AUTO 64 % (41-73); Platelet Count 352 K/mm3 (150-400); RDW Coefficient Variation 13.9 % (11.7-14.2); RDW Standard Deviation 44.8 fL (35.1-46.3); Red Blood Cell Count 5.52 M/mm3 (4.30-5.90); White Blood Cell Count 10.44 K/mm3 (4.00-11.30)
[2022-08-01 04:45] LABS: Bilirubin, Total 1.8 mg/dL (0.1-1.0); Bun/Creatinine Ratio 27.7 (12.0-20.0); Calcium, Blood 8.4 mg/dL (8.5-10.1); Creatinine, Blood 1.01 mg/dL (0.60-1.20); Phosphorus, Blood 4.5 mg/dL (2.5-4.9); Potassium, Blood 3.5 mmol/L (3.5-5.5)
--- NOTE | 2022-08-01 06:16 | NUR ---
SHIFT SUMMARY PATIENT TRANSFERRED TO PCU FROM ICU DURING THE SHIFT. PATIENT ALERT AND ORIENTED, ABLE TO MAKE NEEDS KNOWN TO STAFF. BP STABLE, PATIENT WEARING 7-8L NC WITH O2 SAT >92%. PATIENT WILL ONLY DESAT WHEN O2 IS TAKEN OUT OF NOSE, PATIENT REMINDED DURING THE NIGHT TO KEEP O2 IN NOSE. HR 110s-120s BUT WILL INCREASE UP TO 130s AT TIMES. ALBE TO TURN SELF IN BED. BLADDER SCAN PERFORMED AROUND 0330 SHOWING 129mls IN BLADDER, PATIENT STATED "I HAVEN'T HAD MUCH TO DRINK AND I DON'T NEED TO PEE". NO OTHER CHANGES, WILL REPORT TO DAY SHIFT RN.
--- NOTE | 2022-08-01 09:31 | NUR ---
CONSULT NOTE CARDIOLOGY CONSULT PLACED BY THIS RN W/ DR. COOL PER DR. BENTON ORDERS. PT HAS REMAINED NPO PER ORDERS.
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
--- NOTE | 2022-08-01 16:55 | NUR ---
SHIFT SUMMARY PT IS ALERT AND ORIENTED X 4. SPO2 MAINTAINED >95% VIA 3L NC, PT REPORTS FEELING SOB W/ EXERTION. DRY OCCASIONAL COUGH NOTED. BP STABLE, HR HAS RANGED IN 110-30'S PER TELE MONIORING. THIS NURSE SPOKE W/ DR. RODRÍGUEZ REGARDING HR, ORDERS FOR PO CARDIZEM GIVEN, PLEASE SEE EMAR REGARDING TIMING AND DOSAGE. PT HAS DENIED FEELINGS OF CHEST PAIN/PRESSURE DURING SHIFT. HE HAS DENIED FEELINGS OF NAUSEA. CRAVINGS FOR SWEETS REPORTED T/O SHIFT, SUGAR FREE SNACK OPTIONS PROVIDED BY THIS RN AND PT EDUCATED ON IMPORTANCE OF MANAGING BLOOD GLUCOSE LEVELS ALONG W/ APPROPRIATE FOOD OPTIONS. IV'S IN R ARM ARE SALINE LOCKED. PT HAD TWO EPISODES OF WATERY STOOL AND REPORTED HE HAS HAD LOOSE BOWELS FOR 5 DAYS. WOUND ON LEFT LEG CLEANED AND DRESSED BY THIS RN. PLEASE SEE PHOTOS IN CHART FOR BILATERAL LEG WOUNDS. PT APPEARED TO BE SLEEPING IN BETWEEN PT CARE. HE ALSO BECAME TEARFUL DURING SHIFT WHEN TALKING ABOUT OF 18 YEARS WHO TWO YEARS AGO. PT NOW IN BED VISITING W/ SON AT BEDSIDE, CALL LIGHT IS W/IN REACH. WILL CONTINUE TO MONITOR AND REPORT TO ONCOMING RN.
[2022-08-02 03:41] LABS: BASOPHILS ABSOLUTE AUTO 0.09 K/mm3 (0.00-0.23); BASOPHILS PERCENT AUTO 1 % (0-2); EOSINOPHILS ABSOLUTE AUTO 0.23 K/mm3 (0.00-0.68); EOSINOPHILS PERCENT AUTO 2 % (0-6); Hematocrit 48.6 % (37.0-53.0); Hemoglobin 15.8 g/dL (13.5-17.5); IMMATURE GRAN ABSOLUTE AUTO 0.03 K/mm3 (0.00-0.10); IMMATURE GRAN PERCENT AUTO 0 % (0-1); LYMPHOCYTES ABSOLUTE AUTO 1.78 K/mm3 (0.84-5.20); LYMPHOCYTES PERCENT AUTO 17 % (21-46); MONOCYTES PERCENT AUTO 13 % (4-13); Mean Corpuscular HGB 28.9 pg (26.0-34.0); Mean Corpuscular HGB Conc 32.5 g/dL (31.5-36.5); Mean Corpuscular Volume 89 fL (80-100); Mean Platelet Volume 10.6 fL (9.1-12.4); NEUTROPHILS ABSOLUTE AUTO 7.01 K/mm3 (1.96-9.15); NEUTROPHILS PERCENT AUTO 66 % (41-73); Platelet Count 370 K/mm3 (150-400); RDW Coefficient Variation 13.8 % (11.7-14.2); RDW Standard Deviation 44.3 fL (35.1-46.3); Red Blood Cell Count 5.47 M/mm3 (4.30-5.90); White Blood Cell Count 10.54 K/mm3 (4.00-11.30)
[2022-08-02 03:43] VITALS: BP 109/96
[2022-08-02 04:12] LABS: Albumin, Blood 2.9 g/dL (3.4-5.0); Albumin/Globulin Ratio 0.9 (0.8-1.8); Bun/Creatinine Ratio 31.8 (12.0-20.0); Calcium, Blood 8.2 mg/dL (8.5-10.1); Creatinine, Blood 0.94 mg/dL (0.60-1.20); Globulin, Blood 3.4 g/dL (2.2-4.0); Magnesium, Blood 1.8 mg/dL (1.6-2.4); Potassium, Blood 3.6 mmol/L (3.5-5.5); Thyroid Stimulating Hormone 2.36 uIU/mL (0.360-4.800); Total Protein, Blood 6.3 g/dL (6.4-8.2)
--- NOTE | 2022-08-02 05:27 | NUR ---
SHIFT SUMMARY PT IS A/Ox4 AND COOPERATIVE WITH CARE PROVIDED BY MEMBERS OF STAFF. ANSWERS QUESTIONS APPROPRIATELY AND ABLE TO MAKE HIS NEEDS KNOWN. ANXIOUS AT TIMES AND OFTEN TALKS ABOUT HIS COMPLEX FAMILY DYNAMICS. CARDIAC SHORT, REMAINED AFIB RHYTHM 90-110'S DURING THE NIGHT. WOULD OCCASIONALLY TOUCH 120'S WHEN MOVING, BUT WOULD NOT SUSTAIN. SBP WAS SOFT FOR THE FIRST PART OF THE SHIFT WITH SBP RANGING FROM 80-90'S. DUE TO THIS, WAS UNABLE TO GIVE HIS PO TOPROL XL ORDERED VIA EMAR. SBP RECOVERED LATER IN THE SHIFT TO MID 100'S. NO C/O CP OR PRESSURE T/O THE NIGHT. MAINTAINS SPO2 >90% ON 2-3L VIA NC. SOB.INCREASED RR NOTED WITH EXERTION. ABLE TO ABULATE TO BSC TO VOID/BM. DRESSING FOR WOUND ON LEFT CALF REMAINS DRY AND INTACT. NO NEW ORDERS AT THIS TIME. NO NEW ORDERS AT THIS TIME, WILL REPORT TO ONCOMING RN. SANTA OF THIS NOTE
[2022-08-02 07:33] VITALS: BP 107/77
--- NOTE | 2022-08-02 09:39 | NUR ---
AM NOTE PT DISHEVLED IN BED WITH NOTICEABLE WORK OF BREATHING AT APPROXIMATELY 24 BPM PT'S NC WAS ON HIS FOREHEAD. PT IS ALERT AND ORIENTATED TO PERSON, PLACE, TIME, AND SITUATION. PT DENIES CHEST PAIN, NAUSEA, DIZZINESS, ABDOMINAL PAIN. PT'S LUNG SOUNDS ARE COARSE, DIMMINISHED, WITH FINE CRACKLES NOTED IN THE LOWER LOBES. PT HAS COMPLAINTS OF INCREASED PAIN IN THE LLE WOUND. INCREASED SWELLING, REDNESS, AND WARMTH NOTED TO BILATERAL EXTREMITIES. DENIES ANY OTHER COMPLAINTS OF PAIN, HE JUST FEELS FATIGUED. HR RANGING FROM THE 100'S-120'S. MAP OF 87. O2 82% WITHOUT N, IMPROVED TO 94% AT 3L. AWAITING PROVDIER FOR MORNING ROUNDS. WILL CONTINUE TO MONITOR. AWAITING PROVIDER FOR MORNING ROUNDS. WILL CONTNIUE TO MONITOR PT.
[2022-08-02 11:00] VITALS: BP 105/86
[2022-08-02 14:20] VITALS: BP 104/79
[2022-08-02 18:00] VITALS: BP 114/84
--- NOTE | 2022-08-02 18:01 | NUR ---
SHIFT SUMMARY PT REMAINED ALERT AND ORIENTATED THROUGHOUT THE SHIFT. VANCOMYCIN STARTED FOR REDDENING OF LEGS, INCREASED LASIX PER EMAR. DENIES ANY CHANGES RELATED TO SHORTNESS OF BREATH, CHEST PAIN, NAUSEA. HR REMAINS IN THE HIGH 90'S-120'S. REVAL IN THE AM.
--- NOTE | 2022-08-02 18:49 | NUR ---
I have reviewed the nursing students documentation and am in agreement.
[2022-08-02 20:19] VITALS: BP 101/81
[2022-08-03] VITALS (8 sets, daily range): BP systolic 90–117; BP diastolic 59–101
--- NOTE | 2022-08-03 06:25 | NUR ---
SHIFT SUMMARY PATIENT ALERT AND ORIENTED, ABLE TO MAKE NEEDS KNOWN TO STAFF. BP STABLE, HR 110s-120s, PATIENT ON 3L NC WITH O2 SAT >92%, PAITENT FREQUENTLY REMINDED TO KEEP O2 IN NOSE. NO COMPLAINTS OF PAIN DURING THE NIGHT. PATIENT STANDBY TO INDEPENDENT IN THE ROOM. SHOWERED SELF INDEPENDENTLY. NO OTHER SIGNIFICANT CHANFGES THIS SHIFT, WILL REPORT TO DAY SHIFT RN.
--- NOTE | 2022-08-03 08:50 | NUR ---
AM NOTE PT IS ALERT AND ORIENTATED TO PERSON, PLACE, TIME, SITUATION. PULSE RATE REMAINS FROM THE HIGH 90'S- 120'S. SPO2 >93% ON 3L NC, ABLE TO TOLERATE SHORT BREAKS WITHOUT O2. MAP OF 87. PT DENIES CHEST PAIN, WORSENING SHORTNESS OF BREATH, NAUSEA, DIZZINESS, OR ABDOMINAL PAIN. LUNG SOUNDS REMAINED TO HAVE FINE CRACKLES IN THE BASES. PERIPHREAL EDEMA STILL DEEP AND PITTING IN BILATERAL EXTREMITIES. MODERATE ABDOMINAL DISTENSION NOTED. BANDAGES REDRESSED PT MEDICATED PER EMAR. AWAITING PROVIDER RE-EVALUATION. PT DENIES FURTHER NEEDS AT THIS TIME.
[2022-08-03 11:41] LABS: Bun/Creatinine Ratio 29.4 (12.0-20.0); Creatinine, Blood 0.75 mg/dL (0.60-1.20); Potassium, Blood 3.5 mmol/L (3.5-5.5)
[2022-08-03 11:50] LABS: BASOPHILS ABSOLUTE AUTO 0.11 K/mm3 (0.00-0.23); BASOPHILS PERCENT AUTO 1 % (0-2); EOSINOPHILS ABSOLUTE AUTO 0.21 K/mm3 (0.00-0.68); EOSINOPHILS PERCENT AUTO 2 % (0-6); Hematocrit 48.6 % (37.0-53.0); Hemoglobin 15.9 g/dL (13.5-17.5); IMMATURE GRAN ABSOLUTE AUTO 0.01 K/mm3 (0.00-0.10); IMMATURE GRAN PERCENT AUTO 0 % (0-1); LYMPHOCYTES ABSOLUTE AUTO 1.48 K/mm3 (0.84-5.20); LYMPHOCYTES PERCENT AUTO 16 % (21-46); MONOCYTES ABSOLUTE AUTO 1.14 K/mm3 (0.16-1.47); MONOCYTES PERCENT AUTO 12 % (4-13); Mean Corpuscular HGB 28.4 pg (26.0-34.0); Mean Corpuscular HGB Conc 32.7 g/dL (31.5-36.5); Mean Corpuscular Volume 87 fL (80-100); Mean Platelet Volume 10.6 fL (9.1-12.4); NEUTROPHILS ABSOLUTE AUTO 6.46 K/mm3 (1.96-9.15); NEUTROPHILS PERCENT AUTO 69 % (41-73); Platelet Count 399 K/mm3 (150-400); RDW Standard Deviation 44.6 fL (35.1-46.3); White Blood Cell Count 9.41 K/mm3 (4.00-11.30)
--- NOTE | 2022-08-03 16:48 | NUR ---
SHIFT SUMMARY PT REMAINED ALERT AND ORIENTATED DURING SHIFT. PT'S HR REMAINED IN THE 100'S-130'S. CARDIOLOGY CONSULTED. DIURETIC CHANGED TO BUMEX. SEE EMAR. PT DENIES CHEST PAIN, WORSENING SHORTNESS OF BREATH, DIZZINESS, NAUSEA, OR ABDOMINAL PAIN. WILL REPORT OFF TO ONCOMING RN.
--- NOTE | 2022-08-03 18:17 | NUR ---
Discussed heart rate control with Dr Mosley and Dr Jones, new orders per Dr Jones, digoxin 0.125 mg po daily, start now. I have reviewed the nursing students documentation and am in agreement.
[2022-08-03 23:03] LABS: Vancomycin, Trough 15.1 ug/mL (5.0-10.0)
[2022-08-04] VITALS (9 sets, daily range): BP systolic 98–122; BP diastolic 59–98
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
--- NOTE | 2022-08-04 08:20 | NUR ---
AM NOTE Pt alert, oriented X4, cooperative with care. Pt up in chair, to bathroom ind. Pt encouraged to use urinal for output measurement. Educated pt on fluid restriction. Pt denies pain, chest pain/pressure, sob, nausea, dizziness and numb/tinlging. Spo2 >90% on ra, breathing in labored, use of abd. Tele afib, hr 110-120, occasionally touching 140's, bp stable. Abd severely distended, firm, with hyperactive bt. Ble edema noted. Skin is red/purple, with prolong cap refill. Other Vss. No other acute changes noted. Will continue to monitor.
[2022-08-04 11:47] LABS: BASOPHILS ABSOLUTE AUTO 0.09 K/mm3 (0.00-0.23); BASOPHILS PERCENT AUTO 1 % (0-2); EOSINOPHILS ABSOLUTE AUTO 0.21 K/mm3 (0.00-0.68); EOSINOPHILS PERCENT AUTO 2 % (0-6); Hematocrit 51.4 % (37.0-53.0); Hemoglobin 16.4 g/dL (13.5-17.5); IMMATURE GRAN ABSOLUTE AUTO 0.02 K/mm3 (0.00-0.10); IMMATURE GRAN PERCENT AUTO 0 % (0-1); LYMPHOCYTES PERCENT AUTO 14 % (21-46); MONOCYTES ABSOLUTE AUTO 1.24 K/mm3 (0.16-1.47); MONOCYTES PERCENT AUTO 14 % (4-13); Mean Corpuscular HGB 28.5 pg (26.0-34.0); Mean Corpuscular HGB Conc 31.9 g/dL (31.5-36.5); Mean Corpuscular Volume 89 fL (80-100); Mean Platelet Volume 10.4 fL (9.1-12.4); NEUTROPHILS ABSOLUTE AUTO 6.22 K/mm3 (1.96-9.15); NEUTROPHILS PERCENT AUTO 69 % (41-73); Platelet Count 350 K/mm3 (150-400); RDW Coefficient Variation 14.1 % (11.7-14.2); RDW Standard Deviation 45.8 fL (35.1-46.3); Red Blood Cell Count 5.76 M/mm3 (4.30-5.90); White Blood Cell Count 9.08 K/mm3 (4.00-11.30)
[2022-08-04 12:11] LABS: Bun/Creatinine Ratio 28.4 (12.0-20.0); Calcium, Blood 8.8 mg/dL (8.5-10.1); Creatinine, Blood 0.77 mg/dL (0.60-1.20); Potassium, Blood 3.5 mmol/L (3.5-5.5)
--- NOTE | 2022-08-04 18:47 | NUR ---
Shift Summary Pt's heart continiues to 110-120's occasionally touching 130's, bp stable. Good urine output t/o shift. Pt reluctant but coopertive with the fluid restriction. No other acute changes noted. Will continue to monitor.
[2022-08-05] VITALS (7 sets, daily range): BP systolic 96–124; BP diastolic 73–96
--- NOTE | 2022-08-05 06:01 | NUR ---
SHIFT SUMMARY PT IS A&OX4, IND IN THE ROOM, AND IS ON A FLUID RESTRICTION W/ INTAKE OF 450CC'S THIS SHIFT. PT IS ON ROOM AIR AND DENIES SOB, ON TELE HE IS AFIB W/ PVS 120 S-140 S. HE WAS GIVEN 150 MG OF LOPRESSOR PO. BP WAS SLIGHTLY SOFT BUT HAS STABILIZED. HE DENIES ANY ANGINA OR CHEST PRESSURE. BED IS IN LOW, CALL LIGHT IS IN REACH. SEE NOTES FOR ANY UPDATES.
[2022-08-05 11:20] LABS: BASOPHILS PERCENT AUTO 1 % (0-2); EOSINOPHILS ABSOLUTE AUTO 0.24 K/mm3 (0.00-0.68); EOSINOPHILS PERCENT AUTO 3 % (0-6); Hematocrit 50.1 % (37.0-53.0); Hemoglobin 16.3 g/dL (13.5-17.5); IMMATURE GRAN ABSOLUTE AUTO 0.03 K/mm3 (0.00-0.10); IMMATURE GRAN PERCENT AUTO 0 % (0-1); LYMPHOCYTES ABSOLUTE AUTO 1.39 K/mm3 (0.84-5.20); LYMPHOCYTES PERCENT AUTO 15 % (21-46); MONOCYTES ABSOLUTE AUTO 1.23 K/mm3 (0.16-1.47); MONOCYTES PERCENT AUTO 13 % (4-13); Mean Corpuscular HGB 28.9 pg (26.0-34.0); Mean Corpuscular HGB Conc 32.5 g/dL (31.5-36.5); Mean Corpuscular Volume 89 fL (80-100); Mean Platelet Volume 10.2 fL (9.1-12.4); NEUTROPHILS ABSOLUTE AUTO 6.42 K/mm3 (1.96-9.15); NEUTROPHILS PERCENT AUTO 68 % (41-73); Platelet Count 324 K/mm3 (150-400); RDW Coefficient Variation 14.3 % (11.7-14.2); RDW Standard Deviation 45.7 fL (35.1-46.3); Red Blood Cell Count 5.64 M/mm3 (4.30-5.90); White Blood Cell Count 9.41 K/mm3 (4.00-11.30)
--- NOTE | 2022-08-05 11:28 | NUR ---
CARE NOTE HR NOTED TO BE 120'S-140'S PER TELE MONITORING. DR. RAE NOTIFIED VIA TEXT BY THIS RN AT 1127 AM. SEE EMAR REGARDING MEDICATION MANAGEMENT FOR INCREASED HR. PT DENIES FEELINGS OF CHEST PAIN/PRESSURE WELL FEELING SOB BUT REPORTS FEELING RATHER FATIGUED. WILL CONTINUE TO MONITOR W/ PLANS TO INCREASE TOPROL XL TO 200 MG THIS EVENING PER [address]. HADDAD.
[2022-08-05 11:36] LABS: Bun/Creatinine Ratio 27.9 (12.0-20.0); Creatinine, Blood 0.82 mg/dL (0.60-1.20); Potassium, Blood 3.4 mmol/L (3.5-5.5)
--- NOTE | 2022-08-05 15:31 | NUR ---
Spiritual care consult ordered, received and proccessed. Patient immediately talks about his medical history and the medical plans going forward. He shares about the struggle he has with grief after the of his spouse 2 yrs ago, about his addiction issues and his housing insecurity. He also discusses his 2 sons and the desire to be a better for them and the love that he has for them. We explore sources of meaning, purpose and hope, paths toward living clean and sober and resources that might be helpful. I normalize his experience and provide theraeputic listening, grief support, gentle baby counselor and prayer. Patient responded well and showed signs of catharsis, increased peace and hope for moving forward. I will continue to remain available to patient and family.
--- NOTE | 2022-08-05 20:00 | NUR ---
ASSUMED CARE PT IS A&O X4; IS FRUSTRATED AT FLUID RESTRICTION, BUT IS OTHERWISE PLEASANT. SPO2 >92% ON RA; MAP >65; HR IN THE 130'S-150'S. NO C/O OF CP, SOB, OR NAUSEA. PT AMBULATES WELL.
--- NOTE | 2022-08-05 21:08 | NUR ---
UPDATE PT ADAMANT ABOUT CONSUMING MORE THAN FLUID RESTRICTION ALLOWS. CURRENTLY IS HAVING SON BRING IN DRINKS FROM OUTSIDE OF HOSPITAL. INFORMED SON THAT HE IS NOT ALLOWED TO HAVE OUTSIDE DRINKS AND EDUCATED PT ON IMPORTANCE OF ADHERING TO CAREPLAN. PT CONTINUES TO EXPRESS FRUSTRATION, BUT APPEARS TO BE WILLING TO ADHERE FOR NOW. SON TOLD THIS RN THAT HE WILL NOT GIVE PT DRINK. WILL CONTINUE TO REINFORCE EDUCATION.
[2022-08-06 04:54] VITALS: BP 106/80
--- NOTE | 2022-08-06 04:57 | NUR ---
SHIFT SUMMARY PT IS CURRENTLY RESTING QUIETLY W/ SON AT BEDSIDE. SON WAS QUIET T/O NIGHT AND DID NOT INTERFERE W/ CARE. PT WAS RESTLESS TILL ABOUT 2AM~, BUT HAS BEEN COOPERATIVE W/ FLUID RESTRICTION (MAIN CONCERN FOR PT) AFTER EDUCATION (SEE LAST NOTE). PT HAD COMPLAINTS OF CALF PAIN THAT HE STATES OCCURS EVERY OTHER NIGHT. DR GOLD NOTIFIED EARLIER IN SHIFT AND EXTRA DOSE OF GABAPENTIN AND TYLENOL ORDERED, NO NEW COMPLAINTS SINCE THEN. NO ACUTE EVENTS OVERNIGHT.
[2022-08-06 07:38] VITALS: BP 119/82
--- NOTE | 2022-08-06 08:00 | NUR ---
ASSUMED CARE REPORT FROM BEAU SORIA AT 0700. PT SITTING AT BEDSIDE. A&OX 4. FOLLOWS COMMANDS. IRRITABLE ABOUT FLUID RESTRICTION. EDUCATED PT. WILL DISCUSS c PROVIDER ON ROUNDS. LUNGS CLEAR. OCCASIONAL COUGH. DYSPNEA c EXERSION. SPEAKING IN FULL SENTENCES. AFIB ON MONITOR, RATE 110'S. BP STABLE. 3+ EDEMA TO BLE, ENCOURAGED ELEVATION. INDEPENDENT IN ROOM, FAMILY AT BEDSIDE. WILL CONTINUE TO MONITOR.
[2022-08-06 10:14] LABS: Vancomycin, Trough 17.8 ug/mL (5.0-10.0)
[2022-08-06 11:21] VITALS: BP 112/86
[2022-08-06 11:50] LABS: BASOPHILS ABSOLUTE AUTO 0.07 K/mm3 (0.00-0.23); BASOPHILS PERCENT AUTO 1 % (0-2); EOSINOPHILS ABSOLUTE AUTO 0.21 K/mm3 (0.00-0.68); EOSINOPHILS PERCENT AUTO 2 % (0-6); Hematocrit 50.8 % (37.0-53.0); Hemoglobin 16.1 g/dL (13.5-17.5); IMMATURE GRAN ABSOLUTE AUTO 0.03 K/mm3 (0.00-0.10); IMMATURE GRAN PERCENT AUTO 0 % (0-1); LYMPHOCYTES ABSOLUTE AUTO 1.29 K/mm3 (0.84-5.20); LYMPHOCYTES PERCENT AUTO 13 % (21-46); MONOCYTES ABSOLUTE AUTO 1.26 K/mm3 (0.16-1.47); MONOCYTES PERCENT AUTO 12 % (4-13); Mean Corpuscular HGB 28.6 pg (26.0-34.0); Mean Corpuscular HGB Conc 31.7 g/dL (31.5-36.5); Mean Corpuscular Volume 90 fL (80-100); NEUTROPHILS ABSOLUTE AUTO 7.32 K/mm3 (1.96-9.15); NEUTROPHILS PERCENT AUTO 72 % (41-73); Platelet Count 283 K/mm3 (150-400); RDW Coefficient Variation 14.5 % (11.7-14.2); RDW Standard Deviation 47.8 fL (35.1-46.3); Red Blood Cell Count 5.63 M/mm3 (4.30-5.90); White Blood Cell Count 10.18 K/mm3 (4.00-11.30)
[2022-08-06 12:07] LABS: Bun/Creatinine Ratio 29.5 (12.0-20.0); Creatinine, Blood 0.85 mg/dL (0.60-1.20); Potassium, Blood 3.5 mmol/L (3.5-5.5)
[2022-08-06 17:40] VITALS: BP 105/92
--- NOTE | 2022-08-06 17:54 | NUR ---
SHIFT SUMMARY NO ACUTE CHANGES THIS SHIFT. PT CONTINUES IN AFIB, RATE 110-130'S. BP STABLE. PT IRRITABLE c CARE. DISCUSSED FLUID RESTRICTION AT LENGTH. INCREASED TO 2L. PT STATES THAT IT IS UNREASONABLE AND HE WILL NOT COMPLY. DISCUSSED GOALS OF CARE AND PT WANTS TO REMAIN FULL CODE. A&OX 3. LUNGS CLEAR. NON PRODUCTIVE COUGH. INDEPENDENT IN ROOM. 3+ WEEPING EDEMA TO BLE, BLISTERING WOUNDS. PT STATES PAIN WORSE THAN WHEN HE WAS AT HOME. WOUND CONSULT PLACED. WOUNDS DRESSED c NON ADHERANT AND KERLEX. MEDICATED c TYLENOL FOR PAIN. WILL CONTINUE TO MONITOR UNTIL REPORT TO ONCOMING NURSE.
[2022-08-06 19:55] VITALS: BP 111/79
[2022-08-06 23:40] VITALS: BP 110/98
[2022-08-07 02:10] VITALS: BP 123/99
--- NOTE | 2022-08-07 05:14 | NUR ---
PT NON COMPLIANT WITH DIET AND FLUID RESTRICTION, AGITATED, AND INAPPROPRIATELY ANGRY WITH ANY RESTRICTIONS IN PLACE FOR PROPER CARE, OTHERWISE VSS, NO MEDICAL ISSUES OVERNIGHT
[2022-08-07 07:42] VITALS: BP 123/85
--- NOTE | 2022-08-07 09:15 | NUR ---
MD AT BEDSIDE ORDERS FOR PT TO BE MED W/TELE STATUS
[2022-08-07 11:55] VITALS: BP 104/83
--- NOTE | 2022-08-07 16:53 | NUR ---
SHIFT SUMMARY/PT TRANSFER PT ALERT AND ORIENTED X 4. HR STABLE. TACHY AT BEGINNING OF SHIFT. HR CURRENTLY 90'S-110'S AFIB. NO CP OR PRESSURE REPORTED. WOUND CARE TO BLE DONE. PT REQUESTING UNNA BOOTS. ORDER OBTAINED FROM HOSPITALIST. UNNA BOOTS PLACED. NOTIFIED PT OVER FLUID RESTRICTION PRIOR TO THIS SHIFT. NO ORDERS. REPORT GIVEN TO YANG CRUZ. PT TO MOVE TO ROOM 358 BY NITO AND THIS RN.
[2022-08-07 17:27] VITALS: BP 118/88
--- NOTE | 2022-08-07 18:00 | NUR ---
PT TRANSFER PT TRANSFERRED TO ROOM 358 AT 1705 WITH ALL BELONGINGS. TRANSFERRED BY THIS RN AND VICE PRESIDENT PAYMENT.
[2022-08-07 19:53] VITALS: BP 122/88
[2022-08-08] VITALS (7 sets, daily range): BP systolic 97–119; BP diastolic 66–91
--- NOTE | 2022-08-08 06:20 | NUR ---
PATIENT IS FRUSTRATED WITH FLUID RESTRICTIONS, DIET RESTRICTIONS, NON-SMOKING CAMPUS. FREQUENT REQUESTS FOR FLUIDS, SNACKS, PLANS ON DISCHARGING TODAY THOUGH SEEMS TO NEED MORE INPATIENT CARE. UNNA BOOTS DO NOT APPEAR SATURATED BUT ARE ODOROUS. AO, INDEPENDENT WITH URINALS. DESATS AT TIMES TO UPPER 80'S BUT GENERALLY LOW 90'S ON RA. TELE IN PLACE, SUSTAINS 110'S IN AFIB WITH INTERMITTENT HR IN 130'S
[2022-08-08 07:44] LABS: BASOPHILS PERCENT AUTO 1 % (0-2); EOSINOPHILS ABSOLUTE AUTO 0.28 K/mm3 (0.00-0.68); EOSINOPHILS PERCENT AUTO 4 % (0-6); Hematocrit 45.7 % (37.0-53.0); Hemoglobin 14.6 g/dL (13.5-17.5); IMMATURE GRAN ABSOLUTE AUTO 0.03 K/mm3 (0.00-0.10); IMMATURE GRAN PERCENT AUTO 0 % (0-1); LYMPHOCYTES ABSOLUTE AUTO 1.45 K/mm3 (0.84-5.20); LYMPHOCYTES PERCENT AUTO 18 % (21-46); MONOCYTES PERCENT AUTO 15 % (4-13); Mean Corpuscular HGB 28.5 pg (26.0-34.0); Mean Corpuscular HGB Conc 31.9 g/dL (31.5-36.5); Mean Corpuscular Volume 89 fL (80-100); Mean Platelet Volume 10.4 fL (9.1-12.4); NEUTROPHILS ABSOLUTE AUTO 4.92 K/mm3 (1.96-9.15); NEUTROPHILS PERCENT AUTO 62 % (41-73); Platelet Count 266 K/mm3 (150-400); RDW Coefficient Variation 14.3 % (11.7-14.2); RDW Standard Deviation 46.9 fL (35.1-46.3); Red Blood Cell Count 5.12 M/mm3 (4.30-5.90); White Blood Cell Count 7.98 K/mm3 (4.00-11.30)
[2022-08-08 08:00] LABS: Bun/Creatinine Ratio 30.4 (12.0-20.0); Calcium, Blood 8.7 mg/dL (8.5-10.1); Creatinine, Blood 0.72 mg/dL (0.60-1.20); Potassium, Blood 3.2 mmol/L (3.5-5.5)
[2022-08-08 08:07] LABS: Vancomycin, Trough 20.7 ug/mL (5.0-10.0)
--- NOTE | 2022-08-08 16:10 | NUR ---
PATIENT CONTINUES TO FREQUENTLY REQUEST FLUIDS AND SNACKS. PATIENT GIVEN EDUCATION ABOUT THE PURPOSE OF FLUID AND DIETARY RESTRICTIONS RELATED TO HIS DXs OF CHF AND DMII. PATIENT PROTESTS HIS FLUID RESTRICTION AND CITES THE AMOUNT OF URINE THAT HE IS PRODUCING FAR EXCEEDS ANY FLUID INTAKE THAT HE IS ALLOWED. PATIENT COOPERATIVE WITH ALL MEDICATION ADMINISTRATION. WRAPS IN PLACE TO BLE AND APPEAR DRY AND INTACT. IV IS PATENT TO ONE OF THE TWO PORTS ON THE LEFT FA. BLOOD PRESSURE LOW THROUGH SHIFT 101/75, METOPROLOL HELD. STRICT INTAKES AND OUTPUTS FOLLOWED. NURSING WILL CONTINUE TO MONITOR.
--- NOTE | 2022-08-08 18:01 | NUR ---
NURSE NOTE THIS RN AGREES WITH LABORER [employer] SHIFT ASSESSMENT AND SHIFT SUMMARY
--- NOTE | 2022-08-08 22:45 | NUR ---
TELE EVENT NOTE AT SHIFT CHANGE PATIENT HR NOTED TO BE SUSTAINING IN THE 140'S. PMH REMARKABLE FOR A-FIB. THIS RN ADMINISTERED SCHEDULED DOSE OF METOPROLOL 200MG PO @ 1925, WHICH WAS INEFFECTIVE. DR. RAMOS NOTIFIED OF SUSTAINED HR >130 WELL A 7-BEAT RUN OF V-TACH. DR. RAMOS PROVIDED AN ORDER FOR A ONE-TIME DOSE OF DIGOXIN 0.25 PO. THIS RN ADMINISTERED DIGOXIN AT 2054 AND PATIENT CONTINUED TO HAVE A SUSTAINED HR >130. AN UPDATE WAS PROVIDED TO DR. RAMOS AND PATIENT WAS SENT TO [facility] 02. THIS RN GAVE REPORT TO DAMARI CAVAZOS RN.
[2022-08-09] VITALS (13 sets, daily range): BP systolic 102–136; BP diastolic 64–98
--- NOTE | 2022-08-09 04:49 | NUR ---
END OF SHIFT: PATIENT HAS BEEN CALLING FOR SNACKS AND FLUIDS, INCREASED CBG WILL BE SEEN ON LABS, PATIENT HAS BEEN EDUCATED WELL ON FLUID RESTRICTION WAS AT EARLY INTO THE SHIFT. PATIENT DENIES CHEST PAIN PRESSURE OR SOB. PATIENT HAS BEEN ON CARDIZEM AT 5-10 CURRENLTY AND HR HAS BEEN DOWN TO 60 SO IS CURRENLTY AT STANDBY ON CARDIZEM. RA. NO CONCERNS FROM THIS RN WOULD RECOMMEND A DIFFERENT ANTI ARRHYTHMIC DUE TO EF 41% IF CONSIDERED FOR LONG, TERM AND WITH SUBSTANCE USE DISORDER. WILL CONTINUE TO MONITOR RECIEVED VANCO AND PAIN HAS BEEN UNCONTROLLED.
[2022-08-09 04:58] LABS: BASOPHILS ABSOLUTE AUTO 0.09 K/mm3 (0.00-0.23); BASOPHILS PERCENT AUTO 1 % (0-2); EOSINOPHILS ABSOLUTE AUTO 0.29 K/mm3 (0.00-0.68); EOSINOPHILS PERCENT AUTO 3 % (0-6); Hematocrit 44.3 % (37.0-53.0); Hemoglobin 14.2 g/dL (13.5-17.5); IMMATURE GRAN ABSOLUTE AUTO 0.03 K/mm3 (0.00-0.10); IMMATURE GRAN PERCENT AUTO 0 % (0-1); LYMPHOCYTES ABSOLUTE AUTO 1.76 K/mm3 (0.84-5.20); LYMPHOCYTES PERCENT AUTO 20 % (21-46); MONOCYTES ABSOLUTE AUTO 1.22 K/mm3 (0.16-1.47); MONOCYTES PERCENT AUTO 14 % (4-13); Mean Corpuscular HGB 28.6 pg (26.0-34.0); Mean Corpuscular HGB Conc 32.1 g/dL (31.5-36.5); Mean Corpuscular Volume 89 fL (80-100); Mean Platelet Volume 10.5 fL (9.1-12.4); NEUTROPHILS PERCENT AUTO 62 % (41-73); Platelet Count 244 K/mm3 (150-400); RDW Coefficient Variation 14.4 % (11.7-14.2); RDW Standard Deviation 46.8 fL (35.1-46.3); Red Blood Cell Count 4.97 M/mm3 (4.30-5.90); White Blood Cell Count 8.89 K/mm3 (4.00-11.30)
[2022-08-09 05:52] LABS: Anion Gap 7 mmol/L (6-16); Blood Urea Nitrogen 23 mg/dL (8-24); Bun/Creatinine Ratio 27.6 (12.0-20.0); CO2, Blood 35 mmol/L (21-32); Calcium, Blood 8.4 mg/dL (8.5-10.1); Chloride, Blood 97 mmol/L (98-108); Creatinine, Blood 0.83 mg/dL (0.60-1.20); Digoxin (Lanoxin) 0.81 ug/mL (0.80-2.00); Glomerular Filtration Rate 99 (60-); Glucose, Blood 224 mg/dL (70-99); Potassium, Blood 3.4 mmol/L (3.5-5.5); Sodium, Blood 139 mmol/L (136-145)
--- NOTE | 2022-08-09 10:47 | NUR ---
AM NOTE ASSUMED CARE OF PT. PT IS ALERT AND ORIENTATED TO PERSON, PLACE, SITUATION, AND TIME. HR RANGES FROM 80'S-110'S. OTHER VITAL SIGNS ARE STABLE. WOUND CARE NURSE AT BEDSIDE. UNNA BOOTS REMOVED PER OIL PIPE INSPECTOR HELPER. PT SHOWERED. NEW HYDROGEL DRESSING TO BE EMPLACED. PT DENIES ANY CHEST PAIN, SHORTNESS OF BREATH, DIZZINESS, OR NAUSEA. WILL CONTINUE TO MONITOR PT.
--- NOTE | 2022-08-09 11:39 | NUR ---
WOUND CARE BLE WOUND PHOTO AND ASSESSMENT IN HARD CHART. DC UNNA BOOTS THEY ARE CONTRAINDICATED WITH ACUTE CHF. INITIAL CHOICE FOR PRIMARY DRESSING WAS HYDROGEL. PT REPORTED DISCOMFORT WHILE APPLYING SO SWITCHED TO XEROFORM/ABD ROLLED GAUZE. WILL NEED DAILY DRESSING CHANGES. PT WOUNDS ARE FOLLOWED BY PCP AT [place].
--- NOTE | 2022-08-09 17:40 | NUR ---
SHIFT SUMMARY PT REMAINED ALERT AND ORIENTATED THROUGHOUT SHIFT. PT IS TACHYCARDIC IN AFIB FROM LOW 100'S TO HIGH 120'S. ALL OTHER VITAL SIGNS REMAIN STABLE. PT DENIES CHEST PAIN, SHORTNESS OF BREATH, NAUSEA, DIZZINESS. PT COMPLAINS OF SEVERE 10/10 LEG PAIN. EMAR UPDATED. WOUND CARE CONSULTATION, DRESSINGS CHANGED THIS SHIFT. PT DENIES ANY RELIEF. WILL REPORT OFF TO ONCOMING RN.
--- NOTE | 2022-08-09 18:01 | NUR ---
I have reviewed the nursing students documentation and am in agreement
--- NOTE | 2022-08-09 23:21 | NUR ---
ASSUMPTION OF CARE/ASSESSMENT: ASSUMED CARE OF PT AT 2100. PT IS AWAKE AND SITTING AT EDGE OF BED WHEN THIS RN AT BEDSIDE FOR ASSESSMENT. PT A&O X 4, AND COOPERATIVE WITH CARE. PT ON RA WITH C/O EXERTION DYSPNEA THAT RESOLVES ONCE AT REST. PT ON MONITOR WITH AFIB, HR 90-110'S; CARDIXEM GTT ON SB. PT HAS NO C/O CHEST PAIN. PT HAS HYPOACTIVE BS IN AL QUADRANTS; ABD OBESE, MILDLY FIRM AND NON-TENDER. PT USING URINAL INDEPENDENTLY. PT WALKING OCCASIONALLY INDEPENDENTLY; PERFORMS ADL'S INDEPENDENTLY. VSS AT THIS TIME. 9/10 PAIN COMPLAIN IN BLE; PT MEDICATED WITH TYLENOL PER EMAR. BED LOWERED, CALL LIGHT IN REACH, WILL CONTINUE TO MONTOR.
[2022-08-10] VITALS (8 sets, daily range): BP systolic 101–111; BP diastolic 65–95
[2022-08-10 04:28] LABS: BASOPHILS ABSOLUTE AUTO 0.11 K/mm3 (0.00-0.23); BASOPHILS PERCENT AUTO 1 % (0-2); EOSINOPHILS ABSOLUTE AUTO 0.38 K/mm3 (0.00-0.68); EOSINOPHILS PERCENT AUTO 5 % (0-6); Hematocrit 44.9 % (37.0-53.0); Hemoglobin 14.3 g/dL (13.5-17.5); IMMATURE GRAN ABSOLUTE AUTO 0.02 K/mm3 (0.00-0.10); IMMATURE GRAN PERCENT AUTO 0 % (0-1); LYMPHOCYTES ABSOLUTE AUTO 1.63 K/mm3 (0.84-5.20); LYMPHOCYTES PERCENT AUTO 19 % (21-46); MONOCYTES ABSOLUTE AUTO 1.23 K/mm3 (0.16-1.47); MONOCYTES PERCENT AUTO 14 % (4-13); Mean Corpuscular HGB 28.5 pg (26.0-34.0); Mean Corpuscular HGB Conc 31.8 g/dL (31.5-36.5); Mean Corpuscular Volume 89 fL (80-100); Mean Platelet Volume 10.6 fL (9.1-12.4); NEUTROPHILS ABSOLUTE AUTO 5.15 K/mm3 (1.96-9.15); NEUTROPHILS PERCENT AUTO 61 % (41-73); Platelet Count 261 K/mm3 (150-400); RDW Coefficient Variation 14.5 % (11.7-14.2); RDW Standard Deviation 46.9 fL (35.1-46.3); Red Blood Cell Count 5.02 M/mm3 (4.30-5.90); White Blood Cell Count 8.52 K/mm3 (4.00-11.30)
[2022-08-10 04:52] LABS: Bun/Creatinine Ratio 28.6 (12.0-20.0); Calcium, Blood 8.5 mg/dL (8.5-10.1); Creatinine, Blood 0.77 mg/dL (0.60-1.20); Potassium, Blood 3.6 mmol/L (3.5-5.5)
--- NOTE | 2022-08-10 06:25 | NUR ---
SHIFT SUMMARY: NO ACUTE CHANGES THIS SHIFT, VSS THROUGHOUT THE NIGHT. PT SLEPT ON AND OFF AND WOULD BECOME CONFUSED ABOUT THE TIME EACH TIME HE WOKE UP, BUT REORIENTED EASILY. PT INDEPENDENT WITH ADL'S AND MOVING ABOUT ROOM. PT HAD 240 ML INTAKE FOR FLUIDS. BED LOWERED, CALL LIGHT IN PLACE, WILL CONTINUE TO MONITOR UNTIL ONCOMING RN ARRIVES.
--- NOTE | 2022-08-10 09:34 | NUR ---
AM NOTE PT IS ALERT AND ORIENTATED TO PERSON, PLACE, SITUATION, AND TIME. PT DENIES CHEST PAIN, SHORTNESS OF BREATH, DIZZINESS, NAUSEA, OR ABDOMINAL PAIN. LUNG SOUNDS ARE CLEAR TO AUSCULTATION. MILD DYSPNEA WITH EXERTION. PT IS MORE TALKATIVE TODAY AND SLIGHTLY MORE AGITATED AND EXPRESSES WANTING TO "GO HOME ALREADY" VITAL SIGNS REMAIN STABLE. AWAITING PROVIDER REEVALUATION.
--- NOTE | 2022-08-10 17:45 | NUR ---
SHIFT SUMMARY PT HAS REMAINED ALERT AND ORIENTATED TO ALL. HR RANGES FROM 70'S-100'S AFIB. PT STILL HAS COMPLAINTS OF 8/10 LEG PAIN, MEDICATED PER EMAR. PT IS AWARE OF HIS FLUID RESTRICTIONS, BUT CONTINUES TO ASK FOR MORE FLUIDS AND SNACKS. RE EDUCATED ABOUT THE NEED FOR FLUID RESTRICTIONS. PT RECPETIVE TO THIS FLIGHT STEWARD. DENIES CHEST PAIN, SHORTNESS OF BREATH, DIZZINESS, NAUSEA, ABDOMINAL PAIN. VITAL SIGNS REMAIN STABLE. WILL REPORT OFF TO ONCOMING RN.
--- NOTE | 2022-08-11 06:57 | NUR ---
SHIFT SUMMARY PATIENT ALERT AND ORIENTED X4. INDEPENDENT AMBULATING IN HIS ROOM. MEDICATED PER EMAR FOR PAIN. LUNG SOUNDS CLEAR, ON ROOM AIR. VITAL SIGNS STABLE. NO ACUTE ISSUES NOTED OVERNIGHT. CALL LIGHT WITHIN REACH.
[2022-08-11 07:45] VITALS: BP 103/88
[2022-08-11] MEDS ORDERED: DIGOX250 MCG PO (12:16)
[2022-08-11] MEDS ORDERED: OXYC5 PO (12:17)
[2022-08-11] MEDS ORDERED: GABA300 PO (12:17)
[2022-08-11] MEDS ORDERED: POTCHL20ER PO (12:18)
[2022-08-11] MEDS ORDERED: AMOCLA500 PO (12:18)
[2022-08-11] MEDS ORDERED: BUMETANIDE2 M1 PO (12:19)
[2022-08-11] MEDS ORDERED: GLIP5ER PO (12:21)
[2022-08-11 12:36] VITALS: BP 118/101
--- NOTE | 2022-08-11 13:49 | NUR ---
NURSING DISCHARGE SUMMARY ASSUMED CARE AT 0700. SEE CHART FOR ASSESSMENT. SEEN BY PMD, PATIENT PERSISTENT ABOUT DISCHARGE HOME AND NON-COMPLIANCE OF FR. EDUCATION PROVIDED. BLE DRESSINGS CHANGED. DISCHARGE HOME D/O RECEIVED. PATIENT VERBALIZED UNDERSTANDING OF ALL WRITTEN AND VERBAL DC INSTRUCTIONS. RX'S FAXED TO PHARMACY PER PATIENT REQUEST. HARD RX PROVIDED FOR PAIN MEDICATION AND GLUCOMETER SUPPLIES. PIV X2 DC'D WITH CATH'S INTACT. FAMILY REMAINS AT BEDSIDE, AWAITING TRANSPORT HOME. WILL ESCORT FROM UNIT VIA W/C AT TIME OF DC.
== END 2022-08-11 14:17 | disposition home or self-care (01) | DRG 291 ==
LOC: ER 00:59 → ICUW 05:27 → PCU 05:27 → ICUW 07:27 → PCU 07:44 → MEDS 08-07 17:38 → PCU 08-08 22:41
PROVIDERS: Family Medicine; Internal Medicine; Pharmacist; Student in an Organized Health Care Education/Training Program; ADMIT Internal Medicine
PROC: 5A09357 Assistance with Respiratory Ventilation, Less than 24 Consecutive Hours, Continuous Positive Airway Pressure (ICD-10-PCS; principal; 2022-07-31)
PROC: 5A0935A Assistance with Respiratory Ventilation, Less than 24 Consecutive Hours, High Flow/Velocity Cannula (ICD-10-PCS; 2022-07-31)
DX: I11.0 Hypertensive heart disease with heart failure (principal); I50.41 Acute combined systolic (congestive) and diastolic (congestive) heart failure; J96.01 Acute respiratory failure with hypoxia; L03.116 Cellulitis of left lower limb; I48.91 Unspecified atrial fibrillation; F15.10 Other stimulant abuse, uncomplicated; S81.802A Unspecified open wound, left lower leg, initial encounter; E11.42 Type 2 diabetes mellitus with diabetic polyneuropathy; F17.210 Nicotine dependence, cigarettes, uncomplicated; K13.79 Other lesions of oral mucosa; E66.9 Obesity, unspecified; I08.3 Combined rheumatic disorders of mitral, aortic and tricuspid valves; I27.20 Pulmonary hypertension, unspecified; B96.89 Other specified bacterial agents as the cause of diseases classified elsewhere; Z91.148 Patient's other noncompliance with medication regimen for other reason; Z71.51 Drug abuse counseling and surveillance of drug abuser; Z79.899 Other long term (current) drug therapy; Z79.01 Long term (current) use of anticoagulants; Z79.2 Long term (current) use of antibiotics; Z86.79 Personal history of other diseases of the circulatory system; Z86.19 Personal history of other infectious and parasitic diseases; Z98.890 Other specified postprocedural states; Z68.36 Body mass index [BMI] 36.0-36.9, adult
CPT/HCPCS: 36415; 71045; 76705; 80048; 80053; 80162; 80202; 81001; 82947; 83735; 83880; 84100; 84443; 84484; 85025; 85520; 85610; 85730; 87086; 93005; 93010; 93306; 94660; 94760; 94762; 96365; 96366; 96375; 96376; 99285-25; A9270; J1200; J1644; J1650; J1940; J2543; J3370; J7050

== ENCOUNTER 2022-08-29 15:13 | Emergency (ER) | payer OTHER ==
[~2022-08-29] VITALS: Ht 182.9 cm; Wt 108.9 kg
[~2022-08-29 15:13] MED LIST changes: +AMOCLA500 PO; +BUMETANIDE2 M1 PO; +DIGOX250 MCG PO; +GABA300 PO; +GLIP5ER PO; +OXYC5 PO; +POTCHL20ER PO
[2022-08-29] MEDS ORDERED: Percocet 5-3251 EACH PO (18:30)
[2022-08-29 18:46] VITALS: BP 114/68
== END 2022-08-29 18:53 | disposition home or self-care (01) ==
LOC: ER 15:13
DX: M54.31 Sciatica, right side (principal); I50.9 Heart failure, unspecified; Z79.899 Other long term (current) drug therapy; E11.9 Type 2 diabetes mellitus without complications; I48.91 Unspecified atrial fibrillation; F17.210 Nicotine dependence, cigarettes, uncomplicated
CPT/HCPCS: 96374; 96375; 99283-25; A9270; J1885; J1940

== ENCOUNTER 2022-09-01 19:29 | Inpatient (IN) | payer OTHER ==
[~2022-09-01] VITALS: Ht 182.9 cm; Wt 104.0 kg
[~2022-09-01 19:29] MED LIST changes: +Percocet 5-3251 EACH PO
[2022-09-01 20:28] LABS: BASOPHILS ABSOLUTE AUTO 0.12 K/mm3 (0.00-0.23); BASOPHILS PERCENT AUTO 1 % (0-2); EOSINOPHILS PERCENT AUTO 3 % (0-6); Hematocrit 52.3 % (37.0-53.0); Hemoglobin 16.8 g/dL (13.5-17.5); IMMATURE GRAN ABSOLUTE AUTO 0.03 K/mm3 (0.00-0.10); IMMATURE GRAN PERCENT AUTO 0 % (0-1); LYMPHOCYTES ABSOLUTE AUTO 2.44 K/mm3 (0.84-5.20); LYMPHOCYTES PERCENT AUTO 24 % (21-46); MONOCYTES ABSOLUTE AUTO 1.38 K/mm3 (0.16-1.47); MONOCYTES PERCENT AUTO 13 % (4-13); Mean Corpuscular HGB Conc 32.1 g/dL (31.5-36.5); Mean Corpuscular Volume 87 fL (80-100); NEUTROPHILS ABSOLUTE AUTO 6.05 K/mm3 (1.96-9.15); NEUTROPHILS PERCENT AUTO 59 % (41-73); Platelet Count 419 K/mm3 (150-400); RDW Coefficient Variation 15.7 % (11.7-14.2); RDW Standard Deviation 48.2 fL (35.1-46.3); Red Blood Cell Count 5.99 M/mm3 (4.30-5.90); White Blood Cell Count 10.32 K/mm3 (4.00-11.30)
[2022-09-01 20:45] LABS: Alanine Aminotransfer (ALT/SGP 11 U/L (12-78); Albumin, Blood 3.5 g/dL (3.4-5.0); Alk Phos 163 U/L (50-136); Anion Gap 6 mmol/L (6-16); Aspartate Aminotrans (AST/SGOT 22 U/L (12-37); Bilirubin, Total 1.8 mg/dL (0.1-1.0); Blood Urea Nitrogen 21 mg/dL (8-24); Bun/Creatinine Ratio 18.6 (12.0-20.0); CO2, Blood 34 mmol/L (21-32); Calcium, Blood 9.3 mg/dL (8.5-10.1); Chloride, Blood 98 mmol/L (98-108); Creatinine, Blood 1.13 mg/dL (0.60-1.20); Globulin, Blood 3.6 g/dL (2.2-4.0); Glomerular Filtration Rate 73 (60-); Glucose, Blood 130 mg/dL (70-99); Potassium, Blood 4.1 mmol/L (3.5-5.5); Sodium, Blood 138 mmol/L (136-145); Total Protein, Blood 7.1 g/dL (6.4-8.2)
[2022-09-01 21:32] LABS: Digoxin (Lanoxin) 0.12 ug/mL (0.80-2.00)
[2022-09-01 23:24] LABS: Bilirubin, Direct 0.9 mg/dL (0.0-0.3); CPK Creatine Kinase 60 U/L (39-308); Creatine Kinase MB 6.5 ng/mL (0.0-3.6); Creatine Kinase MB Index 10.8 (0.0-4.0); Glutamyl Transpeptidase, GGT 142 U/L (15-85); Magnesium, Blood 2.2 mg/dL (1.6-2.4)
[2022-09-02] VITALS (7 sets, daily range): BP systolic 97–132; BP diastolic 69–104
[2022-09-02 00:33] LABS: International Normalized Ratio 3.25; Prothrombin Time Results 31.9 Sec (9.7-11.5)
[2022-09-02 00:37] LABS: Anti-Xa UFH, PHA Monitoring >1.50 IU/mL
[2022-09-02 04:36] LABS: BASOPHILS ABSOLUTE AUTO 0.13 K/mm3 (0.00-0.23); BASOPHILS PERCENT AUTO 1 % (0-2); EOSINOPHILS ABSOLUTE AUTO 0.23 K/mm3 (0.00-0.68); EOSINOPHILS PERCENT AUTO 2 % (0-6); Hematocrit 49.3 % (37.0-53.0); IMMATURE GRAN ABSOLUTE AUTO 0.03 K/mm3 (0.00-0.10); IMMATURE GRAN PERCENT AUTO 0 % (0-1); LYMPHOCYTES ABSOLUTE AUTO 2.32 K/mm3 (0.84-5.20); LYMPHOCYTES PERCENT AUTO 22 % (21-46); MONOCYTES ABSOLUTE AUTO 1.59 K/mm3 (0.16-1.47); MONOCYTES PERCENT AUTO 15 % (4-13); Mean Corpuscular HGB 27.8 pg (26.0-34.0); Mean Corpuscular HGB Conc 32.5 g/dL (31.5-36.5); Mean Corpuscular Volume 86 fL (80-100); NEUTROPHILS ABSOLUTE AUTO 6.51 K/mm3 (1.96-9.15); NEUTROPHILS PERCENT AUTO 60 % (41-73); Platelet Count 380 K/mm3 (150-400); RDW Coefficient Variation 15.3 % (11.7-14.2); RDW Standard Deviation 46.7 fL (35.1-46.3); Red Blood Cell Count 5.76 M/mm3 (4.30-5.90); White Blood Cell Count 10.81 K/mm3 (4.00-11.30)
[2022-09-02 05:09] LABS: International Normalized Ratio 2.58; Prothrombin Time Results 25.7 Sec (9.7-11.5)
[2022-09-02 05:10] LABS: Albumin, Blood 3.3 g/dL (3.4-5.0); Bun/Creatinine Ratio 22.3 (12.0-20.0); Calcium, Blood 9.3 mg/dL (8.5-10.1); Creatinine, Blood 0.99 mg/dL (0.60-1.20); Globulin, Blood 3.2 g/dL (2.2-4.0); Potassium, Blood 3.6 mmol/L (3.5-5.5); Total Protein, Blood 6.5 g/dL (6.4-8.2)
[2022-09-02 05:11] LABS: Anti-Xa UFH, PHA Monitoring >1.50 IU/mL
--- NOTE | 2022-09-02 06:36 | NUR ---
END OF SHIFT: PATIENT IS ALERT AND ORIENTED, UNRECEPTIVE TO MOST ORDERS IN PLACE, FR HOWEVER, IN ORDER TO KEEP PATIENT FROM LEAVING AMA FOR A CIGGEREETE, BARGAINING FOR FLUIDS WAS ABLE TO KEEP PATIENT HERE. PATIENT DEIES CHEST PAIN SOB IS ON RA REFUSING O2 AT THIS TIME. IV DIG Q6, PATIETN HAS BEEN STABLE BLOOD PRESSURE HR SLOWLY IMPROVING, RECIEVED BOLUS IN THE ED. OUT PUT HAS BEEN WELL. NO CONCERNS FROM THIS RN EXCEPT PATIENTS OWN COMPLIANCE. WILL CONTINUE TO MONITOR UNTIL SHIFT CHANGE.
--- NOTE | 2022-09-02 08:20 | NUR ---
PT A&OX4. PT SITTING AT BEDSIDE. LOWER LEGS WEEPING, FLOOR WET UNDER FEET FROM SORES ON LOWER LEGS. PEDAL PULSES PALPABLE, SKIN COOL. EDEMA 2+ FROM KNEES DOWN. DISCUSSED PLACING ABSORBANT PADS AND ELEVATING FEET TODAY, PT AGREEABLE TO PLAN. PT IS A CURRENT EVERY DAY SMOKER. RECOMMENDED NICORETTE PATCH TO PT AND HE STATED THAT HE WOULD LIKE THAT. REQUEST WAS PUT IN TO DR. ARNOLD WHEN SHE WAS ROUNDING.
--- NOTE | 2022-09-02 09:43 | NUR ---
Pt ambulated independently to the bathroom to void. Helped to elevate his legs on chux-covered pillows. Dressings are intact at this time.
--- NOTE | 2022-09-02 13:05 | NUR ---
PT AGITATED WITH THE PAIN IN HIS LEGS. HE PREFERS TO SIT AT THE SIDE OF THE BED WITH HIS LEGS DANGLING. TOWEL WAS PLACED UNDER HIS FEET TO ABSORB THE SEROUS FLUID DRAINING FROM OPEN WOUNDS. ABSORBANT PADS HELD IN PLACE WITH TUBING STOCKENETTE AND BARIATRIC NONSLIP SOCKS. ATTEMPTED TO HAVE HIM REST WITH LEGS ON PILLOWS BUT DIDN'T WANT TO BE ON HIS BACK. REFUSED TO ELEVATE LEGS ANY OTHER WAY. ATTEMPTED TO USE A FAN ON HIS LOWER LEGS WHILE HE WAS SITTING AT THE EDGE OF THE BED. PT ASKED TO TURN IT OFF IT WAS MAKING HIM TOO COLD. PT ALREADY HAD 4 BLANKETS AROUND HIS SHOULDERS AND THE THERMOSTAT WAS INCREASED IN HIS ROOM. USED CLENSING WIPES FOR LEGS AND LEFT PACKAGE WITH PATIENT TO CONTINUE TO USE NEEDED. PT FALLING ASLEEP WHILE SITTING AT BEDSIDE.
[2022-09-02 15:22] LABS: Anti-Xa UFH, PHA Monitoring 0.63 IU/mL; International Normalized Ratio 2.07
[2022-09-02 15:46] LABS: Prothrombin Time Results 20.9 Sec (9.7-11.5)
--- NOTE | 2022-09-02 17:35 | NUR ---
PT STATES THAT PAIN IN HIS LEGS IS 10/10 WITH HIS LEFT WORSE THAN HIS RIGHT. PT STATES THAT IT IS A BURNING, PAINFUL SENSATION. HE STATES THAT NOTHING WE HAVE DONE HAS HELPED TODAY. DR. ARNOLD WAS CALLED AND NOTIFIED. SHE STATED THAT SHE WILL PUT IN AN ORDER FOR A MEDICATION.
--- NOTE | 2022-09-02 18:44 | NUR ---
SHIFT SUMMARY PT A&OX4, SPO2 >96% ON ROOM AIR, HR 110-120. PT STATES 10/10 PAIN IN BOTH LOWER LEGS WITH LEFT WORSE THAN THE RIGHT. NUMEROUS NONPHARMACEUTICAL THERAPIES TRIED WITH NO RELIEF. DR. ARNOLD CALLED AT 1730 AND NOTIFIED THAT PT WAS ASKING FOR PAIN MEDICATION. SHE PUT IN THE ORDER FOR LYRICA. PT STATES MORE COMFORTABLE IN RECLINER THAN IN BED. PT REQUESTED IV CATHETER BE REMOVED AND IS AGREEABLE TO A NEW ONE BEING PLACED. STATES "IT IS UNCOMFORTABLE AND BOTHERING ME.". WILL CONTINUE WITH MEDICATIONS PER EMAR AND CARDIAC MONITORING.
--- NOTE | 2022-09-02 19:45 | NUR ---
ASSESSMENT/ASSUMED CARE PT SITTING UP IN CHAIR WITH LEGS ELEVATED. PT AWAKE, A&O. C/O BILAT LOWER EXT PAIN 01/04 STATES,"IT IS BURNING REALLY BAD". PT REPORTS TAKING OXYCODONE 5 MG BID, GABAPENTIN 800 MG BID AND ASA 81 TIMES 6 PILLS BID AT HOME WHEN HAVING THIS PAIN. PT TO RECEIVE LYRICA. WILL CALL DR LUONG REGARDING PAIN. BILAT LOWER EXT BRIGHT RED AND WARM TO TOUCH. COOL WASH CLOTHES TO BILAT LEGS PER PT REQUEST.
--- NOTE | 2022-09-02 20:00 | NUR ---
PAIN CALL TO DR LUONG REGARDING PAIN 01/04 TO BILAT LOWER EXT. SEE NEW ORDERS.
--- NOTE | 2022-09-02 21:04 | NUR ---
PAIN PT CONT TO C/O PAIN 01/04. PT STATES,"WHEN I TAKE THIS AT HOME IT WORKS RIGHT AWAY. IT'S NOT WORKING AT ALL". NOTIFIED DR LUONG, NO NEW ORDER AT THIS TIME. REASSESS AT [address] LUONG
--- NOTE | 2022-09-02 21:29 | NUR ---
PAIN CALL TO DR LUONG. PT STATES,"MY PAIN IS WORSE NOW THAN BEFORE YOU GAVE ME THE MEDS". RECEIVED ORDERS FOR OXYCODONE 5 MG NOW.
--- NOTE | 2022-09-02 21:53 | NUR ---
PT SITTING UP IN BED EATING SANDWICH. MED WITH OXYCODONE 5 MG
[2022-09-02 21:56] LABS: International Normalized Ratio 1.98
[2022-09-03] VITALS (10 sets, daily range): BP systolic 91–127; BP diastolic 60–85
[2022-09-03 01:01] LABS: Source, Urine Straight Cath
[2022-09-03 01:19] LABS: Appearance, Urine Clear (Clear); Bilirubin, Urine Neg (Neg); Blood, Urine Neg (Neg); Color, Urine Yellow (P-Yellow); Glucose Qualitative, Urine 4+ (Neg); Ketones, Urine Neg (Neg); Leukocyte Esterase, Urine Neg (Neg); Nitrite, Urine Neg (Neg); Protein, Urine Neg (Neg); Specific Gravity, Urine 1.015 (1.003-1.022); Urobilinogen, Urine 1+ (Normal)
--- NOTE | 2022-09-03 05:47 | NUR ---
SHIFT SUMMARY PT REFUSING TO GET INTO BED DURING THE NIGHT. SITTING IN A RECLINER ALL NIGHT. UP TO BSC OR BATHROOM DURING THE NIGHT. PT NOT CALLING BEFORE GETTING UP AND PULLING OUT IV WHILE UP TO THE BATHROOM. TAB ALARM PLACED. PT MED WTIH LYRICA AND PERCOCET FOR BILAT LOWER LEG PAIN "BURNING" WITH LITTLE TO NO RELIEF. ANOTHER ONE TIME DOSE OF OXYCODONE 5 MG GIVEN. PT REPORTS PAIN DOWN TO 7/10 FROM 10/10. REMINDED PT TO KEEP LEG ELEVATED TO REDUCE SWELLING. COOL CLOTHES APPLIED TO LOWER EXT FOR PT COMFORT. HEPARIN GTT STARTED DURING THE NIGHT. REPORT TO ON COMING NURSE
[2022-09-03 06:25] LABS: BASOPHILS PERCENT AUTO 1 % (0-2); EOSINOPHILS PERCENT AUTO 2 % (0-6); Hemoglobin 15.3 g/dL (13.5-17.5); IMMATURE GRAN ABSOLUTE AUTO 0.05 K/mm3 (0.00-0.10); IMMATURE GRAN PERCENT AUTO 0 % (0-1); LYMPHOCYTES ABSOLUTE AUTO 1.65 K/mm3 (0.84-5.20); LYMPHOCYTES PERCENT AUTO 12 % (21-46); MONOCYTES ABSOLUTE AUTO 1.76 K/mm3 (0.16-1.47); MONOCYTES PERCENT AUTO 13 % (4-13); Mean Corpuscular HGB 28.1 pg (26.0-34.0); Mean Corpuscular HGB Conc 32.6 g/dL (31.5-36.5); Mean Corpuscular Volume 86 fL (80-100); Mean Platelet Volume 9.9 fL (9.1-12.4); NEUTROPHILS PERCENT AUTO 71 % (41-73); Platelet Count 309 K/mm3 (150-400); RDW Coefficient Variation 15.4 % (11.7-14.2); RDW Standard Deviation 47.6 fL (35.1-46.3); Red Blood Cell Count 5.45 M/mm3 (4.30-5.90); White Blood Cell Count 13.46 K/mm3 (4.00-11.30)
[2022-09-03 06:41] LABS: Albumin, Blood 3.2 g/dL (3.4-5.0); Bilirubin, Total 1.3 mg/dL (0.1-1.0); Bun/Creatinine Ratio 22.7 (12.0-20.0); Creatinine, Blood 1.1 mg/dL (0.60-1.20); Globulin, Blood 3.3 g/dL (2.2-4.0); Potassium, Blood 3.4 mmol/L (3.5-5.5); Total Protein, Blood 6.5 g/dL (6.4-8.2)
--- NOTE | 2022-09-03 08:57 | NUR ---
PT SITTING IN CHAIR WITH FEET ELEVATED. PT STATES THAT HE IS MORE COMFORTABLE THAN YESTERDAY. MEDICATED PER EMAR. AMIODERONE AND DIGOXIN GIVEN EARLY AT 0735 DUE TO ELEVATED HEART RATE. HR 135 BUT INCREASES TO 165 WITH MINIMAL EXERTION. PT STATES NO CHEST/PAIN, ANXIETY, PALPITATIONS, DIFFICLTY BREATHING, NOR ANY OTHER SYMPTOMS. BP REMAINS STABLE. WILL DISCUSS WITH PHYSICIAN THE ELEVATED HEART RATE WHEN SHE ROUNDS.
--- NOTE | 2022-09-03 13:28 | NUR ---
WOUND CARE PT WITH SCATTERED BLE FULL THICKNESS VENOUS ULCERS. PT REFUSED MEDIHONEY RECOMMENDED BY DR. ACEVES D/T TO PAST USE. HE REPORTS PAIN WITH REMOVAL. BLE CLEANSE WITH NS, SILICONE SKIN BARRIER TO INTACT SKIN, XEROFORM TO OPEN WOUND BEDS COVERED WITH ABD/ROLLED GAUZE. PHOTO AND ASSESSMENT IN CHART. ORDERS IN [employer]. PT TOLERATED WELL
--- NOTE | 2022-09-03 14:06 | NUR ---
1353 IV LASIX WAS ADMINISTERED. PT WAS SLEEPING WHEN I WENT IN TO THE ROOM. I WOKE HIM UP TO VERIFY AND LET HIM KNOW THAT I WAS GIVING HIM LASIX. I TOOK HIS BLOOD PRESSURE AND IT WAS 91/68 (77). I HELD THE METOPROLOL AND WILL CHECK HIS BLOOD PRESSURE AGAIN IN AN HOUR. PT FELL BACK ASLEEP AFTER I LEFT THE ROOM.
--- NOTE | 2022-09-03 18:43 | NUR ---
SHIFT SUMMARY PT A&O X4. HR 115-130S. WOULD INCREASE TO 165 WITH MINIMAL EXERTION. STARTED METOPROLOL AT 1450. HAD TO WAIT TO ADMINISTER MED UNTIL BLOOD PRESSURE WAS >100 SYSTOLIC. PT SAT IN RECLINER ALL DAY AND STATED THAT HE WAS COMFORTABLE THERE. WOUND NURSE PLACED WRAPS ON LOWER LEGS BILATERALLY AND PLACED NURSE TREATMENT ORDERS . CONTINUE HEPRIN GTT AND MONITOR HEART RATE/RHYTHM.
--- NOTE | 2022-09-03 20:57 | NUR ---
I ASSUMED CARE OF THE PT FROM YANG RUBIN. PT IS A&OX4, BUT HAS BEEN ACTING FAIRLY FLAT. HE STATED HE WANTS TO GET SOME REST, AND ASKED THAT CARE IS CONDENSED. HE IS CURRENTLY UP IN THE CHAIR AND WAS GIVEN A WARM BLANKET. HE HAS 4/10 BLE PAIN, WHICH HE WAS MEDICATED W/ LYRICA FOR. HIS WOUNDS HAVE NEW DRESSINGS CHANGED TODAY, THEY ARE I/C/D. WOUND CONSULT IN. PT IS ON RA AND DENIES ANY SOB. ON TELE HE IS AFIBE 120'S-130'S, 400MG AMIO GIVEN PER EMAR. PT HAS A HEP GTT RUNNING AT 19 AND HE WAS PROVIDED EDUCATION ABOUT RISK FOR BLEEDS. PT RECEPTIVE. CALL LIGHT IN REACH. SEE NOTES FOR ANY UPDATES.
--- NOTE | 2022-09-04 01:19 | NUR ---
Assumed care of patient at approx 1145, pt awake, up in chair. I have reviewed the previous nurses documentation and am in agreement with assessment. Vss. No other acute change, will continue to monitor.
[2022-09-04 03:11] VITALS: BP 97/72
[2022-09-04 09:52] VITALS: BP 102/59
--- NOTE | 2022-09-04 14:32 | NUR ---
WOUND DRESSINGS CHANGED. REDRESSED WITH XEROFORM, ABD PADS, KERLEX AND TUBE GAUZE.
[2022-09-04 17:15] LABS: BASOPHILS ABSOLUTE AUTO 0.07 K/mm3 (0.00-0.23); BASOPHILS PERCENT AUTO 1 % (0-2); EOSINOPHILS ABSOLUTE AUTO 0.36 K/mm3 (0.00-0.68); EOSINOPHILS PERCENT AUTO 4 % (0-6); Hematocrit 47.4 % (37.0-53.0); Hemoglobin 15.4 g/dL (13.5-17.5); IMMATURE GRAN ABSOLUTE AUTO 0.03 K/mm3 (0.00-0.10); IMMATURE GRAN PERCENT AUTO 0 % (0-1); LYMPHOCYTES ABSOLUTE AUTO 1.57 K/mm3 (0.84-5.20); LYMPHOCYTES PERCENT AUTO 17 % (21-46); MONOCYTES ABSOLUTE AUTO 1.12 K/mm3 (0.16-1.47); MONOCYTES PERCENT AUTO 12 % (4-13); Mean Corpuscular HGB 28.2 pg (26.0-34.0); Mean Corpuscular HGB Conc 32.5 g/dL (31.5-36.5); Mean Corpuscular Volume 87 fL (80-100); Mean Platelet Volume 9.5 fL (9.1-12.4); NEUTROPHILS ABSOLUTE AUTO 6.32 K/mm3 (1.96-9.15); NEUTROPHILS PERCENT AUTO 67 % (41-73); Platelet Count 297 K/mm3 (150-400); RDW Standard Deviation 48.7 fL (35.1-46.3); Red Blood Cell Count 5.46 M/mm3 (4.30-5.90); White Blood Cell Count 9.47 K/mm3 (4.00-11.30)
[2022-09-04 17:32] LABS: Albumin, Blood 3.1 g/dL (3.4-5.0); Albumin/Globulin Ratio 0.9 (0.8-1.8); Bilirubin, Total 0.9 mg/dL (0.1-1.0); Calcium, Blood 8.9 mg/dL (8.5-10.1); Creatinine, Blood 0.78 mg/dL (0.60-1.20); Globulin, Blood 3.6 g/dL (2.2-4.0); Potassium, Blood 3.6 mmol/L (3.5-5.5); Total Protein, Blood 6.7 g/dL (6.4-8.2)
[2022-09-04 17:48] VITALS: BP 114/70
--- NOTE | 2022-09-04 18:17 | NUR ---
PT HAS BEEN RESTING IN RECLINER T/O THE DAY. A/O X4 ANSWERING QUESTIONS APPROPRIATELY. VSS. DENIES CP OR SOB. REMAINS IN AFIB WITH RATE THAT RANGES FROM 90-110s. HE HAS REQUIRED INSULIN COVERAGE T/O THE DAY. WOUND DRESSINGS TO BILAT LEGS CHANGED TODAY. HEPARIN DRIP D/C STARTED ON ELIQUIS
[2022-09-04 20:36] VITALS: BP 118/70
--- NOTE | 2022-09-05 05:55 | NUR ---
Assumed care of patient at 1900, A/Ox4, SBA in room. Denies any pain. Maintains over 95% on RA. Afib on tele 90-110's. Denies CP/pressure. 3+ weeping pitting edema to BLE with associated skin sores that bandages were changed on dayshift. Moderate abdominal distention, bowel tones noted t/o. Patient is not happy with fluid restriction, admitted that son brought him in soda but that he didn't want it. Discussed with patient his role in helping to get better and that he needs to actively be helping to achieve that goal. Patient states he understands, but that "when an addict is told they can't have something, it makes them want it so much more". Discussed importance of fluid restriction, patient is receptive but not necessarily agreeable. PO fluid intake this shift: 665, Urine output: 900 Will report to daysmoft RN.
[2022-09-05 09:28] VITALS: BP 110/79
--- NOTE | 2022-09-05 17:08 | NUR ---
PT ARRIVED TO ROOM VIA WHEEL CHAIR. AOX4 ABLE TO AMBULATE TO BED INDEPENEDENTLY. CALL LIGHT WITHIN REACH WILL CONTINUE TO MONITOR.
[2022-09-05 17:12] LABS: BASOPHILS ABSOLUTE AUTO 0.09 K/mm3 (0.00-0.23); BASOPHILS PERCENT AUTO 1 % (0-2); EOSINOPHILS ABSOLUTE AUTO 0.47 K/mm3 (0.00-0.68); EOSINOPHILS PERCENT AUTO 5 % (0-6); Hematocrit 50.1 % (37.0-53.0); IMMATURE GRAN ABSOLUTE AUTO 0.04 K/mm3 (0.00-0.10); IMMATURE GRAN PERCENT AUTO 0 % (0-1); LYMPHOCYTES ABSOLUTE AUTO 1.71 K/mm3 (0.84-5.20); LYMPHOCYTES PERCENT AUTO 17 % (21-46); MONOCYTES PERCENT AUTO 12 % (4-13); Mean Corpuscular HGB 27.8 pg (26.0-34.0); Mean Corpuscular HGB Conc 31.9 g/dL (31.5-36.5); Mean Corpuscular Volume 87 fL (80-100); NEUTROPHILS ABSOLUTE AUTO 6.83 K/mm3 (1.96-9.15); NEUTROPHILS PERCENT AUTO 66 % (41-73); Platelet Count 305 K/mm3 (150-400); RDW Coefficient Variation 16.2 % (11.7-14.2); RDW Standard Deviation 50.4 fL (35.1-46.3); Red Blood Cell Count 5.75 M/mm3 (4.30-5.90); White Blood Cell Count 10.34 K/mm3 (4.00-11.30)
[2022-09-05 17:25] LABS: Albumin, Blood 3.4 g/dL (3.4-5.0); Albumin/Globulin Ratio 0.8 (0.8-1.8); Bilirubin, Total 1.1 mg/dL (0.1-1.0); Bun/Creatinine Ratio 27.6 (12.0-20.0); Calcium, Blood 9.2 mg/dL (8.5-10.1); Creatinine, Blood 0.76 mg/dL (0.60-1.20); Globulin, Blood 4.2 g/dL (2.2-4.0); Potassium, Blood 4.1 mmol/L (3.5-5.5); Total Protein, Blood 7.6 g/dL (6.4-8.2)
[2022-09-05 19:32] VITALS: BP 110/69
--- NOTE | 2022-09-06 04:25 | NUR ---
SHIFT SUMMARY: PT A&O X4. PT IS NOT COOPERATIVE WITH MOST CARE PROVIDED. PT RECEIVED MEDICATIONS BUT WAS NOT HAPPY TO BE WOKEN FOR THEM. PER DAY SHIFT AND DOCTORS NOTE, PT HAD A FRIEND COME TO SEE HIM THE PREVIOUS NIGHT AND BROUGHT SUBSTANCES NOT PERMITTED AT HOSPITAL. TO MY KNOWLEDGE, PT HAD NO VISITORS THIS SHIFT. PT HAD BS OF 174 AT 2005. PT CONSTANTLY ASKING FOR SNACKS AND FLUIDS. PT ON 1999 FLUID RESTRICTION. PT NON COMPLIENT WITH ADA DIET AND SNACKS WELL RESTRICTION ORDER. PT RECEIVED MULTIPLE SNACKS AND FLUID WITHIN ORDERS. PT WAS TOLD HE COULD NOT HAVE ANY MORE FOOD OR FLUID THIS SHIFT. PT WAS IRRITATED AND BEGAN ASKING TIME OF BREAKFAST AND THREATENING TO LEAVE AMA IF WE DO NOT GIVE HIM WHAT HE WANTS. CONTINUED TO HOLD FOOD AND FLUID. TELE IN PLACE RUNNING AFIB 90-120'S. INDEPENDENT IN ROOM. NON COMPLIENT WITH URINAL FOR STRICT I&O. DRESSING ON BLE C/D/I. VSS. NO C/O CHEST PAIN. CALL LIGHT IN REACH. WILL CONTINUE TO MONITOR.
[2022-09-06 04:26] VITALS: BP 128/92
[2022-09-06 07:47] VITALS: BP 113/77
--- NOTE | 2022-09-06 11:52 | NUR ---
WOUND CARE DRESSINGS TO BLLE CHANGED BY THIS RN. PT TOLERATED IT WELL. ORDERS OBTAINED FROM THE CHART.
--- NOTE | 2022-09-06 15:55 | NUR ---
DISCHARGE NOTE PT DISCHARGED TO HOME WITH HOME HEALTH. IV REMOVED. PT TAKEN TO [facility] BY CLINICAL GENETICIST. PERSONAL BELONGINGS RETURNED. DISCHARGE INFORMATION AND EDUCATION PROVIDED.
== END 2022-09-06 15:55 | disposition home health service (06) | DRG 292 ==
LOC: ER 19:29 → PCU 19:30 → MEDS 09-03 09:08 → PCU 09-03 09:08 → MEDS 09-05 16:48 → ENPENDDIS 09-06 12:51 → MEDS 09-06 15:55
PROVIDERS: Family Medicine; Physician Assistant; ADMIT Student in an Organized Health Care Education/Training Program
DX: I50.23 Acute on chronic systolic (congestive) heart failure (principal); L03.115 Cellulitis of right lower limb; L03.116 Cellulitis of left lower limb; R17 Unspecified jaundice; R18.8 Other ascites; I48.91 Unspecified atrial fibrillation; I08.3 Combined rheumatic disorders of mitral, aortic and tricuspid valves; E11.9 Type 2 diabetes mellitus without complications; J44.9 Chronic obstructive pulmonary disease, unspecified; F19.10 Other psychoactive substance abuse, uncomplicated; F17.210 Nicotine dependence, cigarettes, uncomplicated; F15.10 Other stimulant abuse, uncomplicated; R09.02 Hypoxemia; I95.9 Hypotension, unspecified; D69.6 Thrombocytopenia, unspecified; E87.8 Other disorders of electrolyte and fluid balance, not elsewhere classified; R74.8 Abnormal levels of other serum enzymes; I87.2 Venous insufficiency (chronic) (peripheral); E78.89 Other lipoprotein metabolism disorders; K80.20 Calculus of gallbladder without cholecystitis without obstruction; E88.09 Other disorders of plasma-protein metabolism, not elsewhere classified; R79.1 Abnormal coagulation profile; D75.839 Thrombocytosis, unspecified; B88.8 Other specified infestations; Z91.148 Patient's other noncompliance with medication regimen for other reason; Z79.891 Long term (current) use of opiate analgesic; Z79.01 Long term (current) use of anticoagulants; Z86.19 Personal history of other infectious and parasitic diseases; Z98.890 Other specified postprocedural states; Z79.2 Long term (current) use of antibiotics; Z79.4 Long term (current) use of insulin; Z79.899 Other long term (current) drug therapy
CPT/HCPCS: 36415; 71046; 76705; 80053; 80162; 81003; 82248; 82550; 82553; 82947; 82977; 83735; 83880; 84484; 85025; 85520; 85610; 85730; 93005; 93010; 96374; 96375; 96376; 99285-25; A9270; G0378; J0282; J1160; J1644; J1940

== ENCOUNTER 2022-10-21 14:05 | Inpatient (IN) | payer OTHER ==
[~2022-10-21] VITALS: Ht 182.9 cm; Wt 98.5 kg
[2022-10-21 16:53] LABS: BASOPHILS PERCENT AUTO 1 % (0-2); EOSINOPHILS ABSOLUTE AUTO 0.19 K/mm3 (0.00-0.68); EOSINOPHILS PERCENT AUTO 2 % (0-6); Hematocrit 48.1 % (37.0-53.0); Hemoglobin 15.7 g/dL (13.5-17.5); IMMATURE GRAN ABSOLUTE AUTO 0.03 K/mm3 (0.00-0.10); IMMATURE GRAN PERCENT AUTO 0 % (0-1); LYMPHOCYTES ABSOLUTE AUTO 1.99 K/mm3 (0.84-5.20); LYMPHOCYTES PERCENT AUTO 18 % (21-46); MONOCYTES ABSOLUTE AUTO 1.36 K/mm3 (0.16-1.47); MONOCYTES PERCENT AUTO 12 % (4-13); Mean Corpuscular HGB 28.1 pg (26.0-34.0); Mean Corpuscular HGB Conc 32.6 g/dL (31.5-36.5); Mean Corpuscular Volume 86 fL (80-100); Mean Platelet Volume 9.4 fL (9.1-12.4); NEUTROPHILS ABSOLUTE AUTO 7.32 K/mm3 (1.96-9.15); NEUTROPHILS PERCENT AUTO 67 % (41-73); Platelet Count 488 K/mm3 (150-400); RDW Coefficient Variation 17.3 % (11.7-14.2); RDW Standard Deviation 54.1 fL (35.1-46.3); Red Blood Cell Count 5.58 M/mm3 (4.30-5.90); White Blood Cell Count 10.99 K/mm3 (4.00-11.30)
[2022-10-21 17:05] LABS: Albumin, Blood 3.4 g/dL (3.4-5.0); Albumin/Globulin Ratio 0.8 (0.8-1.8); Bilirubin, Total 2.1 mg/dL (0.1-1.0); Bun/Creatinine Ratio 14.3 (12.0-20.0); Creatinine, Blood 0.7 mg/dL (0.60-1.20); Globulin, Blood 4.1 g/dL (2.2-4.0); Potassium, Blood 3.1 mmol/L (3.5-5.5); Total Protein, Blood 7.5 g/dL (6.4-8.2)
[2022-10-21 17:26] LABS: Digoxin (Lanoxin) 0.29 ug/mL (0.80-2.00)
[2022-10-21 21:07] LABS: Magnesium, Blood 1.8 mg/dL (1.6-2.4)
[2022-10-21 21:14] LABS: U Amphetamine Screen DETECTED; U Barbituate Screen Not Detected; U Benzodiazapine Screen Not Detected; U Buprenorphine Screen Not Detected; U Cannabinoids Screen Not Detected; U Cocaine Screen Not Detected; U Methadone Screen Not Detected; U Methamphetamine Screen DETECTED; U Opiates Screen Not Detected; U Oxycodone Screen Not Detected; U Phencyclidine Screen Not Detected; U Propoxyphene Screen Not Detected
--- NOTE | 2022-10-21 23:50 | NUR ---
ASSUMED CARE PT ARRIVED ON UNIT AT 2244. SPO2 >92% ON RA; MAP >65; AFIB RVR HR IN THE 140-160'S (GIVING MEDS PER ORDER). BOTH LEGS WEEPING W/ CELLULITIS; PICTURES IN CHART. CLEANED W/ WOUND SPRAY AND LEFT OPEN TO AIR D/T COPIOUS AMOUNTS OF WEEPING. PT STATES THAT THE PAIN IS "NOT THAT BAD" AT THE MOMENT; 7/10 PAIN. DENIES CP, SOB, OR NAUSEA. CRACKLES IN BILATERAL BASES.
[2022-10-22] VITALS (7 sets, daily range): BP systolic 104–135; BP diastolic 78–113
--- NOTE | 2022-10-22 05:10 | NUR ---
SHIFT SUMMARY PT IS A&O X4, BUT APPEARS TO BE HAVING DELUSIONS AND BELIEVES A RAT THAT HAS BEEN "BOTHERING" HIM AT HOME IS W/ HIM IN THE ROOM AND IS "PUSHING" AGAINST HIM. PT STATES HE HAS NOT SEEN THIS RAT, BUT KNOW'S HE'S THERE. SPO2 >92% ON RA; MAP >65; HR VARIABLE T/O NIGHT 110'S-140'S (TREATING PER EMAR). PT CONTINUES TO DENY CP, SOB, OR NAUSEA. NO OTHER ACUTE EVENTS SINCE LAST NOTE.
[2022-10-22 05:43] LABS: Anion Gap 5 mmol/L (6-16); Blood Urea Nitrogen 12 mg/dL (8-24); Bun/Creatinine Ratio 16.4 (12.0-20.0); CO2, Blood 32 mmol/L (21-32); Calcium, Blood 8.9 mg/dL (8.5-10.1); Chloride, Blood 102 mmol/L (98-108); Creatinine, Blood 0.73 mg/dL (0.60-1.20); Digoxin (Lanoxin) 0.77 ug/mL (0.80-2.00); Glomerular Filtration Rate 102 (60-); Glucose, Blood 139 mg/dL (70-99); Potassium, Blood 3.8 mmol/L (3.5-5.5); Sodium, Blood 139 mmol/L (136-145)
--- NOTE | 2022-10-22 10:49 | NUR ---
FIRE IGNITION RISK ASSESSMENT PT ASSESSED FOR SMOKING AND IGNITION RISK DEVICES. PT REPORTS THAT HE IS A CURRENT SMOKER BUT REPORTED THAT HE DID NOT HAVE ANY LIGHTERS. PT REMINDED THAT [facility] IS A SMOKE FREE FACILITY AND THAT ANY IGNITION RISK DEVICES CANNOT BE ALLOWED IN ROOMS. PT RESPONDED THAT HE DOES NOT HAVE ANYDEVICES. PT INFORMED THAT NICOTINE PATCHES CAN BE PROVIDED TO HELP WITH THE URGE TO SMOKE, PT STATED "THOSE MAKE ME WANT TO SMOKE EVEN MORE." THIS RN CONTINUED TO STRESS THAT [facility] IS A SMOKE FREE FACILTY. WILL CONTINUE TO INFORM PT.
--- NOTE | 2022-10-22 18:51 | NUR ---
SHIFT SUMMARY PT A/OX3 SOME CONFUSION. PT ABLE TO ANSWER ORIENTATION QUESTIONS BUT HAS BEEN HALLUCINATING. PT STATED DURING SHIFT THE HE "SEES A RAT" AND STATES THAT THE RAT "TRIES TO BITE ME." PT HR RANGED 90-120'S AT REST AND 130-140'S WITH EXERTION. OTHER VSS T/O SHIFT WITH 02 SATS IN THE 90'S ON RA. PT ASKED TO CALL WHEN WANTING TO GET UP IN ROOM, PT NOT COOPERATIVE AND STATES "I AM FINE GETTING UP ON MY OWN." NO REPORT OF CHEST PAIN/PRESSURE THROUGHOUT SHIFT. NO REPORT OF SOB THROUGHOUT SHIFT. UNNA BOOTS APPLIED PER ORDER.
--- NOTE | 2022-10-22 21:23 | NUR ---
ROSA PT A/OX4, ANSWERING QUESTIONS APPROPRIATELY. STATES HE NEEDED TO LEAVE IMMEDIATELY TO GO CARE FOR HIS SON. BENEFITS OF STAYING AND RISK OF LEAVING EXPLANINED TO PATIENT. IV REMOVED, AMA FORM SIGNED. PROVIDER NOTIFIED.
== END 2022-10-22 19:55 | disposition left against medical advice (07) | DRG 309 ==
LOC: ER 14:05 → PCU 14:06
PROVIDERS: Emergency Medicine; Nurse Practitioner Acute Care; ADMIT Internal Medicine
DX: I48.91 Unspecified atrial fibrillation (principal); I50.20 Unspecified systolic (congestive) heart failure; L03.115 Cellulitis of right lower limb; L03.116 Cellulitis of left lower limb; I47.1 Supraventricular tachycardia; I87.2 Venous insufficiency (chronic) (peripheral); E87.6 Hypokalemia; E11.51 Type 2 diabetes mellitus with diabetic peripheral angiopathy without gangrene; E66.9 Obesity, unspecified; F29 Unspecified psychosis not due to a substance or known physiological condition; F15.90 Other stimulant use, unspecified, uncomplicated; F17.210 Nicotine dependence, cigarettes, uncomplicated; Z79.899 Other long term (current) drug therapy; Z79.891 Long term (current) use of opiate analgesic; Z98.890 Other specified postprocedural states; Z79.01 Long term (current) use of anticoagulants; Z68.33 Body mass index [BMI] 33.0-33.9, adult
CPT/HCPCS: 36415; 71045; 80048; 80053; 80162; 82947; 83735; 83880; 84484; 85025; 93005; 93010; 96365; 96375; 96376; 97116; 97161; 99285-25; A9270; J0690; J1160; J1940

== ENCOUNTER 2022-12-26 21:21 | Inpatient (IN) | payer OTHER ==
[~2022-12-26] VITALS: Ht 180.3 cm; Wt 117.0 kg
[~2022-12-26 21:21] MED LIST changes: +DIGOX125 MC1 PO; +DILT60 PO; +SPIR25 PO
[2022-12-26 21:58] LABS: BASOPHILS ABSOLUTE AUTO 0.12 K/mm3 (0.00-0.23); BASOPHILS PERCENT AUTO 1 % (0-2); EOSINOPHILS ABSOLUTE AUTO 0.21 K/mm3 (0.00-0.68); EOSINOPHILS PERCENT AUTO 2 % (0-6); Hematocrit 48.3 % (37.0-53.0); Hemoglobin 15.7 g/dL (13.5-17.5); IMMATURE GRAN ABSOLUTE AUTO 0.04 K/mm3 (0.00-0.10); IMMATURE GRAN PERCENT AUTO 0 % (0-1); LYMPHOCYTES ABSOLUTE AUTO 2.14 K/mm3 (0.84-5.20); LYMPHOCYTES PERCENT AUTO 19 % (21-46); MONOCYTES PERCENT AUTO 12 % (4-13); Mean Corpuscular HGB 29.1 pg (26.0-34.0); Mean Corpuscular HGB Conc 32.5 g/dL (31.5-36.5); Mean Corpuscular Volume 90 fL (80-100); Mean Platelet Volume 10.2 fL (9.1-12.4); NEUTROPHILS PERCENT AUTO 66 % (41-73); Platelet Count 286 K/mm3 (150-400); RDW Coefficient Variation 17.1 % (11.7-14.2); RDW Standard Deviation 55.3 fL (35.1-46.3); Red Blood Cell Count 5.39 M/mm3 (4.30-5.90); White Blood Cell Count 11.31 K/mm3 (4.00-11.30)
[2022-12-26 22:20] LABS: Alanine Aminotransfer (ALT/SGP 14 U/L (12-78); Albumin, Blood 3.3 g/dL (3.4-5.0); Albumin/Globulin Ratio 0.9 (0.8-1.8); Alk Phos 218 U/L (50-136); Anion Gap 4 mmol/L (6-16); Aspartate Aminotrans (AST/SGOT 22 U/L (12-37); Bilirubin, Total 1.7 mg/dL (0.1-1.0); Blood Urea Nitrogen 16 mg/dL (8-24); Bun/Creatinine Ratio 20.4 (12.0-20.0); CO2, Blood 36 mmol/L (21-32); Chloride, Blood 98 mmol/L (98-108); Creatinine, Blood 0.78 mg/dL (0.60-1.20); Globulin, Blood 3.7 g/dL (2.2-4.0); Glomerular Filtration Rate 100 (60-); Glucose, Blood 205 mg/dL (70-99); Potassium, Blood 3.4 mmol/L (3.5-5.5); Sodium, Blood 138 mmol/L (136-145)
[2022-12-27 00:26] LABS: Digoxin (Lanoxin) 0.21 ug/mL (0.80-2.00)
[2022-12-27 03:46] VITALS: BP 115/89
[2022-12-27 07:58] VITALS: BP 100/77
--- NOTE | 2022-12-27 08:15 | NUR ---
DAIANA IS ALERT AND ORIENTED X4, COOPERATIVE WITH WOUND CLEANING AND REDRESSING. LARGE AMOUNT OF PURULENT LIQUID FROM ALL WOUNDS ON LOWER EXTREMITIES. PHOTOS ON CHART. ABDOMEN IS VERY FIRM AND DISTENDED, AND PATIENT UNABLE TO EVEN SIT UP IN THE BED AND HE PANICS BECAUSE HE CANNOT BREATH. SET HIM UP IN RECLINER SO HE WAS ABLE TO SIT UP AND ELEVATE FEET.
[2022-12-27 16:38] VITALS: BP 105/83
--- NOTE | 2022-12-27 17:16 | NUR ---
WOUND CARE PT IS KNOWN TO THIS RN. BLE WOUND ETIOLOGY APPEARS TO BE MIXED ATERIAL/VENOUS IN NATURE. WOUNDS ARE CURRENTLY BEING MANAGED BY [employer]. HE REPORTS RECENT ATERIAL STUDY AND REFERAL TO CARDIOLOGY FOR POSSIBLE INTERVENTION. PT EDUCATED ON NEED FOR INTERVENTION AND AFFECT ON WOUND HEALING. HE IS ENCOURAGED TO FOLLOW THROUGH WITH APPT TO PREVENT RECURRENT INFECTION. HE VERBALIZED UNDERSTANDING. WOUNDS CLEANSED WITH CALCIUM ALGINATE PLACED TO OPEN WOUND BEDS, COVERED BY ABD, ROLLED GAUZE, AND YAIR. PT TOLERATED WELL
--- NOTE | 2022-12-27 18:07 | NUR ---
SHIFT SUMMARY PT AxOx4. COOPERATIVE WITH CARE, BUT IRRITABLE AT TIMES. PT RECEIVED IV ABX AND DIURETICS TODAY. PT'S SON IS IN THE ROOM THIS SHIFT. PT HAD SHOWER AND WOUND CARE CONSULT THIS SHIFT. BLE DRESSINGS C/D/I AT THIS TIME. PT DENIES PAIN TODAY. FLUID RESTRICTION 2000ML/DAY. PT INDEPENDENT IN THE ROOM. PT CURRENTLY SITTING AT EDGE OF BED EATING DINNER. CALL LIGHT IN REACH. DENIES ANY NEEDS AT THIS TIME.
[2022-12-27 20:55] VITALS: BP 103/86
[2022-12-28] VITALS (7 sets, daily range): BP systolic 94–117; BP diastolic 64–98
--- NOTE | 2022-12-28 03:54 | NUR ---
SHIFT SUMMARY. SHIFT HAS BEEN MOSTLY UNREMARKABLE. PT AOX4, PLEASANT, COOPERATIVE WITH CARE. CAN BE SOMEWHAT IRRITABLE BUT IS EASILY REDIRECTABLE. INDEPENDENT WITHIN ROOM, WAS WALKING UP AND DOWN GOINS EARLIER WITH NO DIFFICULTY. CAN GET SOMEWHAT SOB WITH PROLONGED EXERTION BUT HAS BEEN PRUDENT WITH TAKING BREAKS APPROPRIATELY. HAS NOT SLEPT MUCH THIS SHIFT BUT HAS BEEN RESTING IN BED FOR MOST OF SHIFT. DRESSINGS ON LEGS REMAIN C/D/I. DRESSINGS NOT CHANGED THIS SHIFT. CALLS APPROPRIATELY FOR ASSISTANCE. BED LOCKED IN LOWEST POSITION. CALL LIGHT LEFT WITHIN REACH.
[2022-12-28 05:46] LABS: BASOPHILS ABSOLUTE AUTO 0.13 K/mm3 (0.00-0.23); BASOPHILS PERCENT AUTO 1 % (0-2); EOSINOPHILS ABSOLUTE AUTO 0.27 K/mm3 (0.00-0.68); EOSINOPHILS PERCENT AUTO 3 % (0-6); Hematocrit 50.6 % (37.0-53.0); Hemoglobin 16.1 g/dL (13.5-17.5); IMMATURE GRAN ABSOLUTE AUTO 0.04 K/mm3 (0.00-0.10); IMMATURE GRAN PERCENT AUTO 0 % (0-1); LYMPHOCYTES ABSOLUTE AUTO 1.86 K/mm3 (0.84-5.20); LYMPHOCYTES PERCENT AUTO 18 % (21-46); MONOCYTES ABSOLUTE AUTO 1.48 K/mm3 (0.16-1.47); MONOCYTES PERCENT AUTO 15 % (4-13); Mean Corpuscular HGB 28.9 pg (26.0-34.0); Mean Corpuscular HGB Conc 31.8 g/dL (31.5-36.5); Mean Corpuscular Volume 91 fL (80-100); Mean Platelet Volume 10.5 fL (9.1-12.4); NEUTROPHILS ABSOLUTE AUTO 6.32 K/mm3 (1.96-9.15); NEUTROPHILS PERCENT AUTO 63 % (41-73); Platelet Count 320 K/mm3 (150-400); RDW Coefficient Variation 17.8 % (11.7-14.2); RDW Standard Deviation 57.2 fL (35.1-46.3); Red Blood Cell Count 5.57 M/mm3 (4.30-5.90)
[2022-12-28 06:20] LABS: Albumin, Blood 3.2 g/dL (3.4-5.0); Anion Gap 4 mmol/L (6-16); Blood Urea Nitrogen 17 mg/dL (8-24); Bun/Creatinine Ratio 22.8 (12.0-20.0); CO2, Blood 32 mmol/L (21-32); Chloride, Blood 100 mmol/L (98-108); Creatinine, Blood 0.75 mg/dL (0.60-1.20); Glomerular Filtration Rate 101 (60-); Glucose, Blood 153 mg/dL (70-99); Magnesium, Blood 1.9 mg/dL (1.6-2.4); Phosphorus, Blood 4.1 mg/dL (2.5-4.9); Potassium, Blood 3.9 mmol/L (3.5-5.5); Sodium, Blood 136 mmol/L (136-145)
--- NOTE | 2022-12-28 17:35 | NUR ---
SHIFT SUMMARY: PT IS A PLEASANT AND COOPERATIVE 47 YEAR OLD MALE HERE FOR LOWER EXTREMITIES CELLULITIS. HE IS RECEIVING IV ANTIBIOTIC TREATMENT AND WOUND CARE OF LOWER EXTREMITIES. HE IS INDEPENDENT IN THE ROOM WITH HIS SON AT BEDSIDE. HIM AND HIS FAMILY ARE LIVING OUT OF THEIR CAR AND ARE IN CONTACT WITH [employer]OP[employer]INTER WHO IS WORKING ON HOUSING. PT STATES THAT HE STRIVES TO GET BETTER SO HE CAN LIVE A NORMAL LIFE. HE BECOMES SIGNIFICANTLY DROWSY POST MEALS, BUT NO SIGNS OF HYPO/HYPER GLYCEMIA. HE IS AROUSABLE. HE C/O PAIN IN HIS RIGHT LEG AND STATES THAT IT IS A 13/10 ON THE PAIN SCALE. BEEN TREATING WITH MEDICATIONS AVAILABLE PER EMAR. PT IS IN HIS BEDSIDE RECLINER, CALL LIGHT WITHIN REACH, NO SIGNS OF SYMPTOMS OF DISTRESS, RESPIRATIONS EVEN. PLAN OF CARE ONGOING.
[2022-12-29 03:06] VITALS: BP 109/81
--- NOTE | 2022-12-29 04:08 | NUR ---
SHIFT SUMMARY. SHIFT HAS BEEN MOSTLY UNREMARKABLE. PT HAS BEEN SOMNOLENT THROUGHOUT SHIFT BUT IS EASILY AWAKENED BY VERBAL DIRECTION. FOLLOWS COMMANDS AND ANSWERS QUESTIONS. HAS SPORADICALLY BEEN MORE AWAKE THROUGHOUT SHIFT AND HAS SNACKED A FEW TIMES AND VOIDED A FEW TIMES. AOX2-3, PLEASANT, COOPERATIVE WITH CARE. TOLERATING FLUID RESTRICTION WELL. NO PAIN REPORTED THIS SHIFT, PT HAS BEEN ABLE TO SLEEP THROUGH MOST OF SHIFT. INDEPENDENT WITHIN ROOM. CALLS APPROPRIATELY FOR ASSISTANCE. SATTING WELL ON ROOM AIR. BED LOCKED IN LOWEST POSITION. CALL LIGHT LEFT WITHIN REACH.
[2022-12-29 07:11] VITALS: BP 98/87
--- NOTE | 2022-12-29 17:02 | NUR ---
SHIFT SUMMARY: PATIENT HAS BEEN LESS PAINFUL TODAY AND MORE AMBULATORY. HE CONTINUES TO BE PLEASANT AND COOPERATIVE, SON REMAINS TO STAY WITH HIM IN HIS ROOM. PATIENT HAS INSATIABLE HUNGER AND DOES BECOME AGITATED WHEN HUNGRY. ALERT AND ORIENTED X 4 HE IS IN HIS BEDSIDE RECLINER, NO SIGNS OR SYMPTOMS OF DISTRESS, CALL LIGHT WITHIN REACH. PLAN OF CARE ONGOING.
[2022-12-29 17:28] VITALS: BP 97/76
[2022-12-29 20:10] VITALS: BP 103/89
--- NOTE | 2022-12-30 04:31 | NUR ---
shift summary. shift has been unremarkable. pt had a difficult time sleeping early in shift. called hospitalist dr. mitchell who ordered melatonin 3 mg bedtime prn. pt has been sleeping since administration. aox3-4 on shift assessment, pleasant and cooperative with care. independent within room. tolerating fluid restriction well. frequent snack requests, cbg has been well managed. pain adequately managed via emar. satting well on room air. calls appropriately for assistance. bed locked in lowest position. call light left within reach.
[2022-12-30 06:03] VITALS: BP 105/83
[2022-12-30 07:25] VITALS: BP 108/81
[2022-12-30 14:57] VITALS: BP 106/88
--- NOTE | 2022-12-30 18:29 | NUR ---
SHIFT SUMMARY A&O X 4, VSS. IS PLEASANT & COOPERATIVE WITH ALL CARE. PT SHOWERED TODAY, BILAT LEG DRESSINGS REMOVED BEFORE SHOWER. LEGS REDRESSED PER ORDERS AFTER SHOWER. IS INDEPENDENT IN THE ROOM FOR RESTROOM USE, STRONG, STEADY GAIT. BG'S CONTROLLED WELL WITH INSULIN PER EMAR. PT'S SON AT BEDSIDE THROUGHOUT ENTIRE SHIFT. PT WITH NO COMPLAINTS. CALLS APPROPRIATELY. BED IN LOW POSITION, CALL LIGHT WITHIN REACH. PLAN FOR DC IS BACK TO PREVIOUS LIVING SITUATION ONCE CLINICALLY STABLE.
[2022-12-30 19:47] VITALS: BP 102/86
[2022-12-30 21:52] VITALS: BP 95/81
--- NOTE | 2022-12-30 23:30 | NUR ---
AT 2150, WHILE ATTEMPTING TO GIVE PT MEDICATIONS, HE WAS ASLEEP IN CHAIR. DID NOT AROUSE TO SPEECH OR SHAKING, PAIN, OR STERNAL RUB. CALLED FOR STAFF ASSIST, SENIOR MOBILE APPLICATION DEVELOPER AND NURSING STAFF CAME TO BEDSIDE. PT AWAKENED SLIGHTLY WHEN SEVERAL PEOPLE WERE IN THE ROOM. OF NOTE, PT'S SON WAS IN THE ROOM USING HIS COMPUTER AND DID NOT LOOK UP WHEN NURSING STAFF IN THE ROOM. PT AWAKENED ENOUGH TO STATE HIS NAME, , AND LOCATION, BUT FELL BACK TO SLEEP ALMOST IMMEDIATELY. VS TAKEN, ALL WNL FOR THIS PT. SENIOR MOBILE APPLICATION DEVELOPER ASKED PT'S SON IF PT HAD TAKEN ANY OF HIS OWN MEDS FROM HOME; SON STATED NO. PT WAS ABLE TO TAKE HIS PO MEDICATIONS. WAS GIVEN WARM BLAKETS AND FELL ASLEEP IMMEDIATELY. PT'S SON STATED PT HAD BEEN AWAKE ALL NIGHT THE NIGHT BEFORE. WILL CONTINUE TO MONITOR.
[2022-12-31 02:30] VITALS: BP 99/82
[2022-12-31 05:36] LABS: BASOPHILS ABSOLUTE AUTO 0.11 K/mm3 (0.00-0.23); BASOPHILS PERCENT AUTO 1 % (0-2); EOSINOPHILS PERCENT AUTO 3 % (0-6); Hematocrit 51.2 % (37.0-53.0); Hemoglobin 16.2 g/dL (13.5-17.5); IMMATURE GRAN ABSOLUTE AUTO 0.04 K/mm3 (0.00-0.10); IMMATURE GRAN PERCENT AUTO 1 % (0-1); LYMPHOCYTES ABSOLUTE AUTO 1.76 K/mm3 (0.84-5.20); LYMPHOCYTES PERCENT AUTO 20 % (21-46); MONOCYTES ABSOLUTE AUTO 1.17 K/mm3 (0.16-1.47); MONOCYTES PERCENT AUTO 13 % (4-13); Mean Corpuscular HGB 29.2 pg (26.0-34.0); Mean Corpuscular HGB Conc 31.6 g/dL (31.5-36.5); Mean Corpuscular Volume 92 fL (80-100); Mean Platelet Volume 10.2 fL (9.1-12.4); NEUTROPHILS ABSOLUTE AUTO 5.46 K/mm3 (1.96-9.15); NEUTROPHILS PERCENT AUTO 62 % (41-73); Platelet Count 395 K/mm3 (150-400); RDW Coefficient Variation 17.2 % (11.7-14.2); RDW Standard Deviation 57.7 fL (35.1-46.3); Red Blood Cell Count 5.54 M/mm3 (4.30-5.90); White Blood Cell Count 8.84 K/mm3 (4.00-11.30)
--- NOTE | 2022-12-31 06:06 | NUR ---
SHIFT SUMMARY: NO FURTHER EPISODES OF LETHARGY. BP'S ARE SOFT, 90'S/70'S. HAS BEEN SLEEPING UPRIGHT IN CHAIR ALL NIGHT WITH FEET IN DEPENDENT POSITION. C/O INCREASING PAIN IN BLE; OFFERED TO HELP HIM GET TO BED BUT HE STATED THAT HE HAS DIFFICULTY BREATHING WHEN IN BED. ALSO DECLINED SCHEDULED TYLENOL. BLE ARE DUSKY AND EDEMATOUS. DECLINED OFFERED RECLINER.
[2022-12-31 06:22] LABS: Anion Gap 4 mmol/L (6-16); Blood Urea Nitrogen 21 mg/dL (8-24); Bun/Creatinine Ratio 26.3 (12.0-20.0); CO2, Blood 36 mmol/L (21-32); Calcium, Blood 8.8 mg/dL (8.5-10.1); Chloride, Blood 99 mmol/L (98-108); Glomerular Filtration Rate 99 (60-); Glucose, Blood 128 mg/dL (70-99); Phosphorus, Blood 3.9 mg/dL (2.5-4.9); Potassium, Blood 3.8 mmol/L (3.5-5.5); Sodium, Blood 139 mmol/L (136-145)
[2022-12-31 07:51] VITALS: BP 129/87
[2022-12-31 14:52] VITALS: BP 106/79
--- NOTE | 2022-12-31 18:06 | NUR ---
THE PATIENT SLEPT MOST OF THE SHIFT, WALKED IN THE HALLS AND SAT LOOKING OUT THE WINDOW. THE PATIENT'S SON WAS IN THE ROOM MOST OF THE DAY. THE PATIENT IS A&O X4 AND FOLLOWS COMMANDS. THE PATIENT IS EATING AT THIS TIME, I WILL CONTINUE TO MONITOR HIM.
[2022-12-31 19:07] VITALS: BP 110/89
[2023-01-01] VITALS (7 sets, daily range): BP systolic 96–135; BP diastolic 60–102
[2023-01-01 05:03] LABS: BASOPHILS ABSOLUTE AUTO 0.12 K/mm3 (0.00-0.23); BASOPHILS PERCENT AUTO 1 % (0-2); EOSINOPHILS ABSOLUTE AUTO 0.27 K/mm3 (0.00-0.68); EOSINOPHILS PERCENT AUTO 3 % (0-6); Hemoglobin 15.4 g/dL (13.5-17.5); IMMATURE GRAN ABSOLUTE AUTO 0.04 K/mm3 (0.00-0.10); IMMATURE GRAN PERCENT AUTO 0 % (0-1); LYMPHOCYTES PERCENT AUTO 20 % (21-46); MONOCYTES ABSOLUTE AUTO 1.41 K/mm3 (0.16-1.47); MONOCYTES PERCENT AUTO 16 % (4-13); Mean Corpuscular HGB 28.9 pg (26.0-34.0); Mean Corpuscular HGB Conc 31.4 g/dL (31.5-36.5); Mean Corpuscular Volume 92 fL (80-100); Mean Platelet Volume 9.9 fL (9.1-12.4); NEUTROPHILS ABSOLUTE AUTO 5.42 K/mm3 (1.96-9.15); NEUTROPHILS PERCENT AUTO 60 % (41-73); Platelet Count 429 K/mm3 (150-400); RDW Coefficient Variation 17.2 % (11.7-14.2); RDW Standard Deviation 58.2 fL (35.1-46.3); Red Blood Cell Count 5.32 M/mm3 (4.30-5.90); White Blood Cell Count 9.06 K/mm3 (4.00-11.30)
--- NOTE | 2023-01-01 05:23 | NUR ---
SHIFT SUMMARY NOC PT A/O X 4. PLEASANT AND COOPERATIVE WITH CARE, BUT FLAT AFFECT. PT SON STAYED IN ROOM WITH PT OVERNIGHT. PT HAS WOUND CARE WRAPS BLE FOR CELLULITIS AND CHF WEEPING, REMAINS C/D/I. NO ACUTE CHANGES TO REPORT. PT IS CURRENTLY RESTING WITH BED IN LOWEST POSITION, AND CALL LIGHT WITHIN REACH.
[2023-01-01 06:07] LABS: Albumin, Blood 2.9 g/dL (3.4-5.0); Anion Gap 2 mmol/L (6-16); Blood Urea Nitrogen 20 mg/dL (8-24); Bun/Creatinine Ratio 24.4 (12.0-20.0); CO2, Blood 38 mmol/L (21-32); Calcium, Blood 8.8 mg/dL (8.5-10.1); Chloride, Blood 99 mmol/L (98-108); Creatinine, Blood 0.82 mg/dL (0.60-1.20); Glomerular Filtration Rate 99 (60-); Glucose, Blood 171 mg/dL (70-99); Phosphorus, Blood 3.5 mg/dL (2.5-4.9); Potassium, Blood 3.8 mmol/L (3.5-5.5); Sodium, Blood 139 mmol/L (136-145)
--- NOTE | 2023-01-01 17:29 | NUR ---
THE PATIENT IS A&O X4, FOLLOWS COMMANDS. THE PATIENT COPLAINING OF CHEST PAIN. I TALKED TO THE CHARGE NUSE AND CALLED DR. RODRÍGUEZ, HE ORDERED AN EKG, TROPONIN LAB DRAW AND A CHEST X-RAY, THAT ARE PENDIND. I WILL CALL THE DOCTOR WITH RESULTS. THE PATIENT IS IN BED AND I WILL CONTINUE TO MONITOR HIM.
--- NOTE | 2023-01-01 23:59 | NUR ---
NOTIFIED BY TELE MONITOR THAT PT SUSTAINING AFIB HR IN 130'S-150'S. HOSPITALIST NOTIFIED AND SCHEDULED DOSE OF CARDIZEM GIVEN WITH HR SUSTAINING IN LOW 100'S-110'S.
--- NOTE | 2023-01-02 00:03 | NUR ---
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 HOSPITALIST GAVE INSTRUCTIONS TO DOCUMENT REFUSAL.
--- NOTE | 2023-01-02 00:05 | NUR ---
PT IS REFUSING TO WEAR [employer] TECHNICIAN. HOSPITALIST IS AWARE OF SITUATION.
[2023-01-02 03:19] LABS: BASOPHILS ABSOLUTE AUTO 0.15 K/mm3 (0.00-0.23); BASOPHILS PERCENT AUTO 1 % (0-2); EOSINOPHILS ABSOLUTE AUTO 0.03 K/mm3 (0.00-0.68); EOSINOPHILS PERCENT AUTO 0 % (0-6); Hematocrit 50.2 % (37.0-53.0); Hemoglobin 16.2 g/dL (13.5-17.5); IMMATURE GRAN ABSOLUTE AUTO 0.07 K/mm3 (0.00-0.10); IMMATURE GRAN PERCENT AUTO 0 % (0-1); LYMPHOCYTES PERCENT AUTO 7 % (21-46); MONOCYTES ABSOLUTE AUTO 2.15 K/mm3 (0.16-1.47); MONOCYTES PERCENT AUTO 13 % (4-13); Mean Corpuscular HGB Conc 32.3 g/dL (31.5-36.5); Mean Corpuscular Volume 90 fL (80-100); NEUTROPHILS ABSOLUTE AUTO 12.75 K/mm3 (1.96-9.15); NEUTROPHILS PERCENT AUTO 78 % (41-73); Platelet Count 518 K/mm3 (150-400); RDW Coefficient Variation 17.3 % (11.7-14.2); RDW Standard Deviation 55.4 fL (35.1-46.3); Red Blood Cell Count 5.58 M/mm3 (4.30-5.90); White Blood Cell Count 16.35 K/mm3 (4.00-11.30)
--- NOTE | 2023-01-02 03:54 | NUR ---
PT WBC CAME BACK 16.35 UP FROM 9.06 PREVIOUS DAY. HOSPITALIST NOTIFIED AND WILL PUT IN ORDERS.
[2023-01-02 04:12] LABS: Albumin, Blood 3.1 g/dL (3.4-5.0); Albumin/Globulin Ratio 0.8 (0.8-1.8); Bilirubin, Total 1.4 mg/dL (0.1-1.0); Bun/Creatinine Ratio 35.4 (12.0-20.0); Creatinine, Blood 0.65 mg/dL (0.60-1.20); Globulin, Blood 3.9 g/dL (2.2-4.0); Phosphorus, Blood 3.8 mg/dL (2.5-4.9); Potassium, Blood 4.5 mmol/L (3.5-5.5)
--- NOTE | 2023-01-02 04:50 | NUR ---
SHIFT SUMMARY NOC PT A/O X 3-4. LOSES TRAIN OF THOUGHT AT TIMES, BUT REORIENTS QUICKLY. PT HAD C/O OF SOB SHORTLY AFTER SHIFT CHANGE AND SPO2 DECRESAED INTO MID TO HIGH 80'S. 3L/NC O2 APPLIED AND PT SLOWLY RECOVERED INTO LOW 90'S. PT RA BASELINE. RT CALLED TO PROVIDE ADDITIONAL ASSESSMENT, AND ATTEMPTED TO PLACE EAR PROBE DUE TO PT POOR CIRCULATION IN FINGERS. PT PULLED PROBE OFF AFTER FEW MINUTES AND ANOTHER FINGER PROBE PLACE WHICH PT PULLED OFF. PT ALSO PUT ON TELE YESTERDAY AFTER C/O OF CP. PT WAS MAINTAINING HR IN 130'S-150'S. HOSPITALIST NOTIFIED AND SCHEDULED PO CARDIZEM GIVEN, WHICH DECREASED HR INTO LOW 100'S-110'S. PT THEN PROCEEDED TO KEEP REMOVING TELE EVEN AFTER VERBALIZING THE NEED TO HAVE IT REMAIN IN PLACE. AFTER 5 MORE INSTANCES OF TELE REMOVAL HOSPITALIST WAS NOTIFIED AND TELE ORDER DISCONTINUED WITH NURSE NOTE STATING PT REFUSAL TO WEAR MONITOR. PT HAS BEEN EXTREMELY UNCOOPERATIVE WITH CARE AND REFUSING MOST CARE TRYING TO BE PROVIDED. PT EARLIER THIS MORNING PULLED IV FROM ARM AFTER IV ABX WERE FINISHED AND ALARM WAS SOUNDING. PT HAS DRESSING IN PLACE C/D/I ON BLE. PT IS CURRENTLY RESTING WITH BED IN LOWEST POSITION, SON IN ROOM, AND CALL LIGHT WITHIN REACH.
[2023-01-02 05:26] VITALS: BP 115/91
[2023-01-02 07:53] VITALS: BP 114/71
[2023-01-02 09:40] LABS: PCO2 Arterial 50.9 mmHg (35-45); pH Blood Arterial 7.44 (7.35-7.45)
[2023-01-02 16:30] VITALS: BP 111/82
--- NOTE | 2023-01-02 17:26 | NUR ---
SHIFT SUMMARY/DOC CONTACT PATIENT PULLING IV'S MULTIPLE TIMES THIS SHIFT, PULLING TELE OFF MULTIPLE TIMES THIS SHIFT, EDUCATION PROVIDED SEVERAL TIMES. PATIENT STATES HE WILL LEAVE EQUIPMENT ON AND THEN REMOVES THEM. NOT WILLING TO LEAVE OXYGEN ON THIS SHIFT, EDUCATION PROVIDED. NOT WILLING TO ELEVATE EXTREMITIES, EDUCATION PROVIDED. PATIENT VERBALIZES UNDERSTANDING OF EDUCATION AND NEGATIVE HEALTH CONCERNS THAT MAY OCCUR WITH NOT ADHERING TO TREATMENTS/RECOMENDATIONS. CONTACTED DR STAUFFER REGARDING THIS, ORDERED MEDICATIONS AND OKAYED TO LEAVE TELE OFF UNITL TOMORROW. WILL CONTINUE TO MONITOR
--- NOTE | 2023-01-02 18:44 | NUR ---
MISSED ABX MISSED FIRST DOSE OF ZOSYN, PATIENT PULLED IV. BY THE TIME NEW ACCESS OBTAINED NEXT DOSE DUE.
[2023-01-02 19:21] VITALS: BP 149/133
[2023-01-02 22:20] VITALS: BP 156/73
--- NOTE | 2023-01-03 04:18 | NUR ---
END OF SHIFT SUMMARY PT VERY LETHARGIC OVERNIGHT, DIFFICULT TO WAKE UP FOR ASSESSMENT PORTION. AT END OF SHIFT REPORT, PT ATTEMPTED TO GET OOB, PT UNSTEADY AND IMPULSIVE. 3 CARE STAFF MEMBERS ASSISTED PT BACK TO BED SUCCESSFULLY. PT WAS COMPLIANT AFTERWARDS, FINALLY BEGAN TO KEEP OXYGEN ON. PT APPEARED TO BE HAVING SHORTNESS OF BREATH. PT RESTED IN BED UP UNTIL 0015, PT CLIMBED OOB, IV TUBING WAS BEING PULLED. PT SAFELY SAT DOWN IN CHAIR NEXT TO BED. PT SO SEDATED, NO PO MEDICATIONS WERE GIVEN D/T CONCERNS FOR ASPIRATION. 0425: PT STILL UP IN CHAIR OOB, CALM AND COOPERATIVE WITH CARE PROVIDED. TRIED TO KEEP PT COMFORTABLE POSSIBLE. NO BEHAVIORS NOTED THROUGHOUT THE SHIFT. PT's SON IS ROOMING-IN WITH PT. CALL LIGHT WITHIN REACH, [facility].
[2023-01-03 05:34] LABS: BASOPHILS ABSOLUTE AUTO 0.15 K/mm3 (0.00-0.23); BASOPHILS PERCENT AUTO 1 % (0-2); EOSINOPHILS ABSOLUTE AUTO 0.07 K/mm3 (0.00-0.68); EOSINOPHILS PERCENT AUTO 1 % (0-6); Hematocrit 48.2 % (37.0-53.0); Hemoglobin 15.7 g/dL (13.5-17.5); IMMATURE GRAN ABSOLUTE AUTO 0.06 K/mm3 (0.00-0.10); IMMATURE GRAN PERCENT AUTO 0 % (0-1); LYMPHOCYTES ABSOLUTE AUTO 1.45 K/mm3 (0.84-5.20); LYMPHOCYTES PERCENT AUTO 11 % (21-46); MONOCYTES ABSOLUTE AUTO 2.27 K/mm3 (0.16-1.47); MONOCYTES PERCENT AUTO 17 % (4-13); Mean Corpuscular HGB 29.5 pg (26.0-34.0); Mean Corpuscular HGB Conc 32.6 g/dL (31.5-36.5); Mean Corpuscular Volume 91 fL (80-100); NEUTROPHILS ABSOLUTE AUTO 9.36 K/mm3 (1.96-9.15); NEUTROPHILS PERCENT AUTO 70 % (41-73); Platelet Count 479 K/mm3 (150-400); RDW Standard Deviation 55.5 fL (35.1-46.3); Red Blood Cell Count 5.32 M/mm3 (4.30-5.90); White Blood Cell Count 13.36 K/mm3 (4.00-11.30)
[2023-01-03 06:13] LABS: Albumin, Blood 2.9 g/dL (3.4-5.0); Albumin/Globulin Ratio 0.8 (0.8-1.8); Bilirubin, Total 1.3 mg/dL (0.1-1.0); Bun/Creatinine Ratio 40.5 (12.0-20.0); Calcium, Blood 9.4 mg/dL (8.5-10.1); Creatinine, Blood 0.81 mg/dL (0.60-1.20); Globulin, Blood 3.8 g/dL (2.2-4.0); Magnesium, Blood 2.4 mg/dL (1.6-2.4); Phosphorus, Blood 5.3 mg/dL (2.5-4.9); Potassium, Blood 4.6 mmol/L (3.5-5.5); Total Protein, Blood 6.7 g/dL (6.4-8.2)
[2023-01-03 07:11] VITALS: BP 117/82
[2023-01-03 09:27] LABS: Base Excess Venous 8.9 mmol/L; Bicarbonate Venous 29.8 mmol/L (24.0-30.0); PCO2 Venous 64.6 mmHg (38-42); pH Blood Venous 7.34 (7.34-7.37)
--- NOTE | 2023-01-03 13:00 | NUR ---
Transfer: Report recieved from [facility] RN. Patient arrived to PCU 08 via bed. He is resting with eyes closed, but is able to amswer my orientation questions just with verbal stiumli. He opens his eyes briefly when asked, but will not keep them open. HR Irreg, pt has chronic A-FIb rate is currently in the 110-115. LS DIM with crackles in the bases, Biox is mid 90s on 3l via NC, oxygen is titrated down to 2l via nc, biox in the lowe 90s. BT+, pts abd is distended with active bowel tones. He has 2-3+ pitting edema from his BLE up to his nipple line. He has gauze dressings to BLE on his calves. Dressings removed, he has a couple of ulcers on the top of his right soto and the back of his calf. He also has an ulcer on the top of his left soto. Calcium algeinate placed with abd pads and then covered with Kerlex after being cleansed. The patient is resposive at times to the pain of the dressing change. The patients son is at the bedside. Call light in reach.
[2023-01-03 13:01] VITALS: BP 104/81
[2023-01-03 13:15] VITALS: BP 114/89
--- NOTE | 2023-01-03 13:34 | NUR ---
TRANSFER: PT TRANSFERRED TO PCU 08 AROUND 1300. PT VERY LETHARGIC THIS SHIFT. PT WOULD BARELY WAKE WITH STERNAL RUB AND WHEN WAS AWAKE, PT WAS IRRITABLE AND REFUSING ALL CARE. THIS RN DID NOT FEEL COMFORTABLE GIVING PO MEDICATIONS THIS AM. STAT VBG TAKEN. INCREASED CO2 FROM PREVIOUS. RESCUE BIPAP NEEDED. PT TOLERATED IV ABX AND LASIX THIS SHIFT. TELE IN PLACE. PT STILL PULLING ON TELE WIRES. HAS BEEN EDUCATED. REPORT GIVEN TO YANG AREVALO.
--- NOTE | 2023-01-03 13:45 | NUR ---
Update: Patient is fully awake and alert wants to get up to use the bathroom . I strongly encouraged the patient to use the urinal or place a hat in the toilet. He was able to use the BSC. AM meds given at this time. Patient is waiting for his lunch tray.
[2023-01-03 16:06] LABS: Vancomycin, Random 25.1 ug/mL
--- NOTE | 2023-01-03 16:23 | NUR ---
Update: Patient was sitting on the edge of the bed with eyes closed, the respiratory therapist went into assess the patient and he wasn't responding. This RN went into the room, the patient did not respond until staff started to assist the patient to lie down, he started cursing at the nurse that was attempting to help hiim with his legs. He stated, "when I say to put my legs down I mean to fucking put them down." Patient gently reminded to be respectful to staff. This RN voiced concern for patient not responding to staff when we're trying to perform assessments. Patient states he just wants to be left alone.
[2023-01-03 16:32] VITALS: BP 94/84
--- NOTE | 2023-01-03 19:13 | NUR ---
SUMMARY: Patient transferred down from medical floor this afternoon for lethargy, he has been alert and oriented at times, responds selectively. He has not had any C/O pain for me. HR Irreg, A-Fib in the 90s after all AM medications were given. LS have been dim with some crackles noted in the bases. He has been cool and had trino peripheral cyanosis and mottoling around knees. He has 3+ pitting edema from hsi feet up to his nipple line. Gauze dressings to BLE changed today. No other acute changes this shift, report given to oncoming RN.
[2023-01-03 20:59] VITALS: BP 126/68
[2023-01-04] VITALS (27 sets, daily range): BP systolic 81–153; BP diastolic 59–129
--- NOTE | 2023-01-04 00:39 | NUR ---
UPDATE PATIENT REFUSING TO WEAR CPAP AND NASAL CANNULA. PATIENT AGITATED AND VERY CONFUSED. THIS RN EDUCATING PATIENT THE NECESSITY OF OXYGEN. PATIENT STATING "I DON'T HAVE TO FUCKING DO ANYTHING". THIS RN ALSO EDUCATING PATIENT ON USING RESPECTFUL LANGUAGE TOWARDS STAFF. PATIENT REFUSING 0000 MEDICATIONS WELL CLAIMING "THEY WILL MAKE ME HIGH". PATIENT STATING TO SON AT BEDSIDE "IF THESE MEDICATIONS MAKE ME DO WEIRD SHIT, RIP THEM OUT". PATIENT FINALLY CONVINCED TO HAVE CPAP BACK ON AND PULSE OX MONITORING IN PLACE. CONTINUING TO REFUSE 0000 MEDICATIONS.
[2023-01-04 06:00] LABS: Base Excess Venous 11.2 mmol/L; Bicarbonate Venous 32.9 mmol/L (24.0-30.0); PCO2 Venous 49.7 mmHg (38-42); pH Blood Venous 7.46 (7.34-7.37)
--- NOTE | 2023-01-04 06:05 | NUR ---
SHIFT SUMMARY PATIENT MORE LETHARGIC THIS MORNING THAN DURING MAJORITY OF SHIFT. LETHARGY BEGAN AROUND 0200, PATIENT MORE DROWSY. WILL WAKE TO VERBAL STIMULI. BP STABLE. TELE READING SR-ST 90-100s. PATIENT ALTERNATING BETWEEN CPAP, NC AND RA. PATIENT ENCOURAGED TO HAVE O2 ON AT ALL TIMES BUT PATIENT AGITATES EASILY AND IS NONCOMPLIANT AT TIMES. CONTINENT/INCONTINENT, WILL USE URINAL AT TIMES. BILATERAL DRESSING CHANGES TO LOWER EXTREMS D/T WEEPING. SON AT BEDSIDE FOR THE NIGHT. NO OTHER CHANGES, WILL REPORT TO DAY SHIFT RN.
[2023-01-04 06:07] LABS: BASOPHILS ABSOLUTE AUTO 0.09 K/mm3 (0.00-0.23); BASOPHILS PERCENT AUTO 1 % (0-2); EOSINOPHILS ABSOLUTE AUTO 0.08 K/mm3 (0.00-0.68); EOSINOPHILS PERCENT AUTO 1 % (0-6); Hematocrit 44.1 % (37.0-53.0); Hemoglobin 14.5 g/dL (13.5-17.5); IMMATURE GRAN ABSOLUTE AUTO 0.06 K/mm3 (0.00-0.10); IMMATURE GRAN PERCENT AUTO 0 % (0-1); LYMPHOCYTES ABSOLUTE AUTO 1.21 K/mm3 (0.84-5.20); LYMPHOCYTES PERCENT AUTO 9 % (21-46); MONOCYTES PERCENT AUTO 15 % (4-13); Mean Corpuscular HGB 29.4 pg (26.0-34.0); Mean Corpuscular HGB Conc 32.9 g/dL (31.5-36.5); Mean Corpuscular Volume 89 fL (80-100); Mean Platelet Volume 9.7 fL (9.1-12.4); NEUTROPHILS ABSOLUTE AUTO 10.32 K/mm3 (1.96-9.15); NEUTROPHILS PERCENT AUTO 75 % (41-73); Platelet Count 470 K/mm3 (150-400); RDW Standard Deviation 54.8 fL (35.1-46.3); Red Blood Cell Count 4.94 M/mm3 (4.30-5.90); White Blood Cell Count 13.86 K/mm3 (4.00-11.30)
[2023-01-04 06:56] LABS: Vancomycin, Random 11.8 ug/mL
[2023-01-04 07:05] LABS: Albumin, Blood 2.7 g/dL (3.4-5.0); Albumin/Globulin Ratio 0.8 (0.8-1.8); Bilirubin, Total 1.2 mg/dL (0.1-1.0); Bun/Creatinine Ratio 41.2 (12.0-20.0); Calcium, Blood 8.9 mg/dL (8.5-10.1); Creatinine, Blood 0.8 mg/dL (0.60-1.20); Globulin, Blood 3.4 g/dL (2.2-4.0); Magnesium, Blood 2.1 mg/dL (1.6-2.4); Phosphorus, Blood 4.8 mg/dL (2.5-4.9); Potassium, Blood 4.6 mmol/L (3.5-5.5); Total Protein, Blood 6.1 g/dL (6.4-8.2)
[2023-01-04 11:44] LABS: PCO2 Arterial 63 mmHg (35-45); PO2 Arterial 75 mmHg (80-100); pH Blood Arterial 7.37 (7.35-7.45)
--- NOTE | 2023-01-04 12:04 | NUR ---
PT UPDATE THIS AM, PT WAS SITTING UP ON SIDE OF BED EATING BREAKFAST. TALKATIVE AND ABLE TO COMMUNICATE WITH STAFF. PT IS NOW OBTUNDED AND NOT RESPONSIVE TO VERBAL STIMULI OR PHYSICAL STIMULI. MD AT BEDSIDE. BIPAP IN PLACE, ABG WAS DRAWN. SBP NOW IN 80'S, MAP >65. PUPILS REMAIN EQUAL AND REACTIVE TO LIGHT. MD ESQUEDA NOTIFIED OF PT'S CONDITION CHANGE AND ABG RESULTS. ORDERS RECEIVED TO CHANGE PT STATUS BACK TO PCU. INTERNET DESIGNER AWARE OF PT CONDITION CHANGE.
--- NOTE | 2023-01-04 14:06 | NUR ---
Spoke with Primary RNs Jennifer and Harriet. Discussed case and reviewed plan of care. Pt obtunded and CO2 has increased. Pt placed on BIPAP. Pt resting in bed with his eyes closed and wearing BIPAP. Pt remains with eyes closed throughout visit. Pt's son Flavio at bedside. Brief review of plan of care. Flavio reports he and Pt are homeless living in care. Flavio reports Pt is non compliant with medications and dressing changes due to Pt not having any motivation to do so. Brief discussion regarding plan for advanced care planning when Pt wakes and is clear. Palliative Care will remain available
[2023-01-04 14:55] LABS: Base Excess Venous 11.4 mmol/L; Bicarbonate Venous 30.8 mmol/L (24.0-30.0); PCO2 Venous 69.7 mmHg (38-42); pH Blood Venous 7.34 (7.34-7.37)
[2023-01-04 17:08] LABS: BASOPHILS ABSOLUTE AUTO 0.09 K/mm3 (0.00-0.23); BASOPHILS PERCENT AUTO 1 % (0-2); EOSINOPHILS ABSOLUTE AUTO 0.23 K/mm3 (0.00-0.68); EOSINOPHILS PERCENT AUTO 2 % (0-6); Hematocrit 47.3 % (37.0-53.0); Hemoglobin 15.1 g/dL (13.5-17.5); IMMATURE GRAN ABSOLUTE AUTO 0.03 K/mm3 (0.00-0.10); IMMATURE GRAN PERCENT AUTO 0 % (0-1); LYMPHOCYTES ABSOLUTE AUTO 1.17 K/mm3 (0.84-5.20); LYMPHOCYTES PERCENT AUTO 11 % (21-46); MONOCYTES ABSOLUTE AUTO 1.91 K/mm3 (0.16-1.47); MONOCYTES PERCENT AUTO 17 % (4-13); Mean Corpuscular HGB 29.1 pg (26.0-34.0); Mean Corpuscular HGB Conc 31.9 g/dL (31.5-36.5); Mean Corpuscular Volume 91 fL (80-100); Mean Platelet Volume 9.9 fL (9.1-12.4); NEUTROPHILS ABSOLUTE AUTO 7.76 K/mm3 (1.96-9.15); NEUTROPHILS PERCENT AUTO 69 % (41-73); Platelet Count 504 K/mm3 (150-400); RDW Coefficient Variation 17.1 % (11.7-14.2); RDW Standard Deviation 55.4 fL (35.1-46.3); Red Blood Cell Count 5.19 M/mm3 (4.30-5.90); White Blood Cell Count 11.19 K/mm3 (4.00-11.30)
[2023-01-04 17:14] LABS: Base Excess Venous 9.5 mmol/L; Bicarbonate Venous 30.6 mmol/L (24.0-30.0); PCO2 Venous 65.4 mmHg (38-42); pH Blood Venous 7.34 (7.34-7.37)
[2023-01-04 17:18] LABS: Source, Urine Straight Cath
[2023-01-04 17:32] LABS: Albumin, Blood 2.6 g/dL (3.4-5.0); Albumin/Globulin Ratio 0.7 (0.8-1.8); Bilirubin, Total 1.1 mg/dL (0.1-1.0); Bun/Creatinine Ratio 40.4 (12.0-20.0); Creatinine, Blood 0.94 mg/dL (0.60-1.20); Globulin, Blood 3.9 g/dL (2.2-4.0); Potassium, Blood 4.8 mmol/L (3.5-5.5); Total Protein, Blood 6.5 g/dL (6.4-8.2)
[2023-01-04 17:38] LABS: Appearance, Urine Clear (Clear); Bilirubin, Urine Neg (Neg); Blood, Urine 5+ (Neg); Color, Urine Yellow (P-Yellow); Glucose Qualitative, Urine Neg (Neg); Ketones, Urine Neg (Neg); Leukocyte Esterase, Urine 1+ (Neg); Nitrite, Urine Neg (Neg); Protein, Urine 2+ (Neg); Urobilinogen, Urine NORM (Normal)
[2023-01-04 17:50] LABS: U Amphetamine Screen Not Detected
[2023-01-04 17:51] LABS: U Barbituate Screen Not Detected; U Benzodiazapine Screen Not Detected; U Buprenorphine Screen Not Detected; U Cannabinoids Screen Not Detected; U Cocaine Screen Not Detected; U Methadone Screen Not Detected; U Methamphetamine Screen Not Detected; U Opiates Screen Not Detected; U Oxycodone Screen Not Detected; U Phencyclidine Screen Not Detected; U Propoxyphene Screen Not Detected
[2023-01-04 17:58] LABS: Bacteria Mod /hpf; Red Blood Cells, Urine 25-50 /hpf (0-2); Renal Epithelial Rare /hpf (0-Rare); Squamous Epithelial Cells Few /hpf (Few)
--- NOTE | 2023-01-04 18:16 | NUR ---
END OF SHIFT NOTE PT REMAINED OBTUNDED T/O SHIFT, RESPONSIVE TO PHYSICAL STIMULI. SEE PREVIOUS NOTE REGARDING ONSET. BIPAP IN PLACE CONTINUOUSLY FOLLOWING CHANGE IN MENTATION. HR 60-70'S, NSR. SBP 80-100'S. SPO2 >92% ON BIPAP 16/8 WITH FIO2 3L. NO VOIDS THIS AM, BLADDER SCAN COMPLETED WITH >700ML VOLUME. STRAIGHT CATH X2 THIS SHIFT, UA AND TOX SENT. NO BM'S THIS SHIFT. BLE DRESSINGS INTACT, PT REPOSITIONED W/ HIPS FLOATED AND BLE ELEVATED ON PILLOWS. PO MEDICATIONS HELD THIS AFTERNOON D/T MENTATION. SON AT BEDSIDE T/O SHIFT. CALL LIGHT WITHIN REACH. BED IN LOWEST POSITION, BED ALARM ON. WILL REPORT TO ONCOMING NOC RN.
--- NOTE | 2023-01-04 21:55 | NUR ---
ASSUMPTION OF CARE/ASSESSMENT: ASSUMED CARE OF PT AT 1900. PT ASLEEP BUT CALLS THIS RN INTO ROOM AND IS SITTING AT EDGE OF BED DEMANDING TO GO OUTSIDE TO HAVE A CIGARETTE; PT EDUCATED REGARDING [facility]UARY'S NO SMOKING POLICY AND THAT HE WOULD NOT BE ABLE TO LEAVE CAMPUS TO SMOKE. AT THIS TIME PT VERY ARGUMENTATIVE AND DEMANDING TO LEAVE AMA; THIS RN EDUCATED RISKS FOR LEAVING. PT'S SON DISCUSSED WITH PT ABOUT THE IMPORTANCE OF STAYING AND PT CALMED DOWN AND AGGREED TO STAY IN THE HOSPITAL. AT THIS TIME PT ANSWERING ALL ORIENTING QUESTIONS APPROPRIATELY; A&O X 4. PT REMOVED BIPAP MASK AND THIS RN CONVINCED HIM TO WEAR NC @ 5 LPM; LUNG SOUNDS ARE DIM THROUGHOUT AND SHALLOW BREATHS OBSERVED, SPO2 96<. AFIB ON MONITOR WITH HR 90-100'S, SBP 100-110, AND PT DENIES CHEST PAIN/PRESSURE. PT TOLERATING PO INTAKE; NO INSULIN COVERAGE FOR DINNER. ABD DISTENDED, FIRM AND HYPOACTIVE BOWEL SOUNDS NOTED. BLE CELLULITIS NOTED WITH YAIR BANDAGES C/D/I; PT STATES MINIMAL PAIN IN R. CALF. PT REMAINS IN CHAIR WITH CALL LIGHT IN REACH.
[2023-01-05] VITALS (13 sets, daily range): BP systolic 96–109; BP diastolic 69–85
--- NOTE | 2023-01-05 00:59 | NUR ---
PT UPDATE: PT REMAINS IN CHAIR AND IS REFUSING TO GET BACK INTO BED TO SLEEP. PT IS SLEEPING IN CHAIR AND DOES NOT WANT TO RETURN TO BED. WILL CONTINUE TO OFFER.
--- NOTE | 2023-01-05 05:56 | NUR ---
SHIFT SUMMARY: PT UP IN CHAIR FOR MAJORITY OF NIGHT, DECLINES ELEVATING LEGS. PT TRANSFERRED BACK TO EDGE OF BED AND HAS BEEN SITTING THERE AND STATES THAT IS IS THE MOST COMFORTABLY POSITION FOR HIM. PT REMAINS A&O X 4. VSS THROUGHOUT THE NIGHT; PT REMAINS ON NC @ 4-5 LPM. PT USING CALL LIGHT APPROPRIATELY. PT DISREGARDING FLUID RESTRICTION AND ASKING MULPTILE STAFF MEMBERS FOR DRINKS; APPROX. 1400 ML INTAKE THIS SHIFT. PT UP TO VOID ONCE THIS SHIFT WITH 350 ML OUTPUT. BED LOWERED, CALL LIGHT IN REACH, WILL REPORT OFF TO ONCOMING RN.
[2023-01-05 07:27] LABS: BASOPHILS ABSOLUTE AUTO 0.09 K/mm3 (0.00-0.23); BASOPHILS PERCENT AUTO 1 % (0-2); EOSINOPHILS ABSOLUTE AUTO 0.22 K/mm3 (0.00-0.68); EOSINOPHILS PERCENT AUTO 2 % (0-6); Hematocrit 45.7 % (37.0-53.0); IMMATURE GRAN ABSOLUTE AUTO 0.02 K/mm3 (0.00-0.10); IMMATURE GRAN PERCENT AUTO 0 % (0-1); LYMPHOCYTES ABSOLUTE AUTO 1.01 K/mm3 (0.84-5.20); LYMPHOCYTES PERCENT AUTO 11 % (21-46); MONOCYTES ABSOLUTE AUTO 1.52 K/mm3 (0.16-1.47); MONOCYTES PERCENT AUTO 16 % (4-13); Mean Corpuscular HGB 29.5 pg (26.0-34.0); Mean Corpuscular HGB Conc 32.8 g/dL (31.5-36.5); Mean Corpuscular Volume 90 fL (80-100); Mean Platelet Volume 9.5 fL (9.1-12.4); NEUTROPHILS ABSOLUTE AUTO 6.74 K/mm3 (1.96-9.15); NEUTROPHILS PERCENT AUTO 70 % (41-73); Platelet Count 516 K/mm3 (150-400); RDW Coefficient Variation 16.7 % (11.7-14.2); RDW Standard Deviation 54.9 fL (35.1-46.3); Red Blood Cell Count 5.09 M/mm3 (4.30-5.90)
[2023-01-05 07:52] LABS: Base Excess Venous 9.8 mmol/L; PCO2 Venous 63.1 mmHg (38-42); pH Blood Venous 7.36 (7.34-7.37)
[2023-01-05 08:20] LABS: Alanine Aminotransfer (ALT/SGP 14 U/L (12-78); Albumin, Blood 2.8 g/dL (3.4-5.0); Albumin/Globulin Ratio 0.7 (0.8-1.8); Alk Phos 209 U/L (50-136); Anion Gap 2 mmol/L (6-16); Aspartate Aminotrans (AST/SGOT 23 U/L (12-37); Bilirubin, Total 0.8 mg/dL (0.1-1.0); Blood Urea Nitrogen 42 mg/dL (8-24); Bun/Creatinine Ratio 37.8 (12.0-20.0); CO2, Blood 35 mmol/L (21-32); Calcium, Blood 8.9 mg/dL (8.5-10.1); Chloride, Blood 97 mmol/L (98-108); Creatinine, Blood 1.11 mg/dL (0.60-1.20); Globulin, Blood 3.9 g/dL (2.2-4.0); Glomerular Filtration Rate 75 (60-); Glucose, Blood 150 mg/dL (70-99); Potassium, Blood 4.4 mmol/L (3.5-5.5); Sodium, Blood 134 mmol/L (136-145); Total Protein, Blood 6.7 g/dL (6.4-8.2)
--- NOTE | 2023-01-05 09:33 | NUR ---
PT DANGLING ON SIDE OF BED AND DENIES NEEDS OR DESIRE TO ELEVATE LEGS. PT EDUCATED ON NEED TO ELEVATE LOWER EXTRIMITIES. CALL LIGHT IN REACH. SON AT BEDSIDE
--- NOTE | 2023-01-05 17:53 | NUR ---
Spoke with Primary RNs Anushka Leon, and discussed case. Pt sitting on edge of bed upon arrival. Pt denies pain, nausea, and anxiety. Mild dyspnea noted. Pt's son Flavio at bedside. Brief review of plan of care with Pt. Engaged in gentle discussion on planning for the future and gentle discussion on disease process. Discussed the importance of compliance with recommendations. Offered therapeutic listening and answered questions. Pt reports plan for compliance. Pt requesting to speak with his nurse. Relayed request to Primary RN Carolyn. Palliative Care will remain available
[2023-01-06] VITALS (7 sets, daily range): BP systolic 101–126; BP diastolic 71–95
[2023-01-06 04:03] LABS: BASOPHILS ABSOLUTE AUTO 0.08 K/mm3 (0.00-0.23); BASOPHILS PERCENT AUTO 1 % (0-2); EOSINOPHILS ABSOLUTE AUTO 0.23 K/mm3 (0.00-0.68); EOSINOPHILS PERCENT AUTO 2 % (0-6); Hematocrit 45.2 % (37.0-53.0); Hemoglobin 14.6 g/dL (13.5-17.5); IMMATURE GRAN ABSOLUTE AUTO 0.02 K/mm3 (0.00-0.10); IMMATURE GRAN PERCENT AUTO 0 % (0-1); LYMPHOCYTES ABSOLUTE AUTO 0.93 K/mm3 (0.84-5.20); LYMPHOCYTES PERCENT AUTO 9 % (21-46); MONOCYTES ABSOLUTE AUTO 1.97 K/mm3 (0.16-1.47); MONOCYTES PERCENT AUTO 19 % (4-13); Mean Corpuscular HGB Conc 32.3 g/dL (31.5-36.5); Mean Corpuscular Volume 90 fL (80-100); Mean Platelet Volume 9.5 fL (9.1-12.4); NEUTROPHILS ABSOLUTE AUTO 7.21 K/mm3 (1.96-9.15); NEUTROPHILS PERCENT AUTO 69 % (41-73); Platelet Count 512 K/mm3 (150-400); RDW Coefficient Variation 16.6 % (11.7-14.2); RDW Standard Deviation 54.3 fL (35.1-46.3); Red Blood Cell Count 5.03 M/mm3 (4.30-5.90); White Blood Cell Count 10.44 K/mm3 (4.00-11.30)
[2023-01-06 04:25] LABS: Albumin, Blood 2.7 g/dL (3.4-5.0); Albumin/Globulin Ratio 0.7 (0.8-1.8); Bun/Creatinine Ratio 40.4 (12.0-20.0); Calcium, Blood 8.7 mg/dL (8.5-10.1); Creatinine, Blood 1.09 mg/dL (0.60-1.20); Globulin, Blood 3.7 g/dL (2.2-4.0); Potassium, Blood 4.4 mmol/L (3.5-5.5); Total Protein, Blood 6.4 g/dL (6.4-8.2)
--- NOTE | 2023-01-06 04:43 | NUR ---
SHIFT SUMMARY PT A&Ox3-4, FORGETFUL AT TIMES. CALLS AND COMMUNICATES NEEDS SOMEWHAT APPROPRIATELY. COOPERATIVE WITH CARE AND FLUID RESTRICTION. 1 ASSIST WIT BSC FROM VOIDS AND BM. PT HAD TWO VERY SMALL BM's/SMEARS. BP STALBE, AFIB 70-90's, DENIES CP/PRESSURE. SpO2> 92% RA-2L WHILE AWAKE, BIPAP WHILE ASLEEP, DENIES SOB. BLE DRESSINGS REMAIN C/D/I. SON AT BEDSIDE. NO OTHER EVENTS, WILL REPORT TO ONCOMING RN.
--- NOTE | 2023-01-06 07:47 | NUR ---
ASSUMPTION OF CARE NOTE ASSUMED CARE AT APPROX 0700. THIS RN NOTIFIED BY REVERSER THAT PT's OXYGEN SATURATIONS WERE IN THE 70'S. UPON ENTERING THE ROOM, RN's ASSESSED THAT OXYGEN SATURATIONS WERE IN THE 80's. PT ON BIPAP W/ 2L OXYGEN BLEED IN. SATURATIONS BEGAN DROPPING INTO THE 70's. OXYGEN INCREASED TO 9L. RESPIRATIONS NOTED TO BE SHALLOW. PT DIFFICULT TO AROUSE, SOMNOLENT. RT NOTIFIED AND TO BEDSIDE. SATURATIONS INCREASED TO 80'S-LOW 90'S. RN CONTACTED MD GUTIERREZ, ORDER TO BE INPUTTED BY FOR STAT VBG. VS OBTAINED, ARE STABLE. PT REMAINS SOMNOLENT. WILL CONTINUE TO MONITOR.
[2023-01-06 08:09] LABS: Base Excess Venous 9.8 mmol/L; Bicarbonate Venous 31.6 mmol/L (24.0-30.0); PCO2 Venous 53.6 mmHg (38-42); pH Blood Venous 7.42 (7.34-7.37)
--- NOTE | 2023-01-06 10:06 | NUR ---
UPDATE PT REMAINS SOMNOLENENT, AROUSABLE TO PHYSICAL STIMULI. DIFFICULTY STAYING AWAKE. VS REMAIN STABLE. IS STILL ON BIPAP W/ 9L BLEED IN, SATS >90%. MORNING PO MEDICATIONS HELD AT THIS TIME DUE TO INCREASED SOMNOLENCE. MD AWARE. CALL LIGHT IN REACH. IV MEDICATIONS INFUSING AT THIS TIME. CALL LIGHT IN REACH.
--- NOTE | 2023-01-06 10:47 | NUR ---
UPDATE THIS RN CONTACTED MD GUTIERREZ PT IS NOT ABLE TO STAY ALERT LONG ENOUGH TO SAFELY ADMINISTER PO MEDICATIONS. HR IS BEGINNING TO INCREASE 110'S-120'S. TO REVIEW EMAR AND PLACE ORDERS.
--- NOTE | 2023-01-06 12:40 | NUR ---
UPDATE AT APPROX 1130, PT TRANSFERRED TO [facility] VIA SLIDING SHEET FOR IMAGING. PT STILL SOMNOLENT AT THIS TIME, RESPONSIVE TO PAINFUL STIMULI. PLACED ON A NONREBREATHER FOR TRANSPORT. PT TRANSFERRED OFF UNIT. RCVD CALL FROM IMAGING THAT PT WOULD BE QUICKLY TRANSFERRED BACK TO ROOM PT ALERT, REPORTING THAT HE NEEDS TO USE THE RESTROOM. PT RETURNED TO ROOM. PT ALERT AND TALKING, GARBLED SPEECH. ABLE TO TURN IN [facility] W/ ASSISTANCE TO USE BEDPAN. VOIDED. SMEAR BM. PT REMAINS ALERT REQUESTING SOMETHING TO DRINK, TOLERATING PO INTAKE. RESPIRATORY THERAPIST PLACED PT ON HIGH FLOW NC, SATS >90%. THIS RN CONTACTED W/ UPDATE. CHANGING MEDICATIONS TO PO PT IS NOW ALERT AND ABLE TO SAFELY TAKE PO MEDICATIONS. THIS RN TO CHANGE MEDICATIONS. PT IN [facility] AWAITING RETURN TO IMAGING.
--- NOTE | 2023-01-06 13:27 | NUR ---
UPDATE PT RETURNED FROM IMAGING, REFUSED HEAD CT. PT TRANSFERRED BACK TO BED VIA SLIDER SHEET. PT AOX3-4. VS STABLE. REMAINING ON HIGH FLOW NC, SATS >90%. HR INCREASE TO 130'S-140'S. PO METOPROLOL AND LACTULOSE ADMINISTERED PER EMAR. MD GUTIERREZ CONTACTED REGARDING IMAGING REFUSAL. NO NEW ORDERS RECEIVED. PT IS CURRENTLY SITTING ON SIDE OF BED EATING LUNCH.
--- NOTE | 2023-01-06 13:52 | NUR ---
PT REQUESTING TO USE BATHROOM. PT DENIES ABILITY TO PUT OWN SOCKS ON, SOCKS PLACED BY STAFF. PT ABLE TO AMBULATE TO BATHROOM W/ 1 PERSON ASSIST W/ FWW. PT THEN USING CALL LIGHT IN BATHROOM. THIS RN TO BATHROOM, PT SITTING ON TOILET, REQUESTING LEMON MERINGUE PIE. THIS RN ASKING IF PT IS DONE USING RESTROOM. PT RESPONDING, "NO. I JUST WANT TO KNOW IF YOU HAVE LEMON MERINGUE PIE." THIS RN EDUCATING PT OF INAPPROPRIATE USE OF CALL LIGHT. PT UPSET. THIS RN LEFT & RETURNED WHEN PT DONE USING RESTROOM. PT REPORTING HAVING LARGE SOLID BROWN BM. THIS RN REMOVED TRAY FROM RM. PT THEN REQUESTING APPLE JUICE. PT REMINDED OF FLUID RESTRICTION & ADA DIET. PT AGAIN, UPSET, STATING "I'M GOING TO START THROWING THINGS." PT CBG 130s. PT PROVIDED W/ 1 JUICE. PT THEN USING CALL LIGHT AGAIN, REQUESTING MORE JUICE & ICE. PT REMINDED TO PLEASE REFRAIN FROM FREQUENT USE OF CALL LIGHT FOR DRINK/FOOD REQUESTS. PT STATING "I'M A THIRSTY TERI. HOW ELSE AM I SUPPOSED TO GET FLUIDS? PT REMINDED OF HOURLY ROUNDING AND GROUPING CARE." PT STATING, "AN HOUR? I COULD BEFORE THEN." PT UPSET & THEN MUMBLING.
--- NOTE | 2023-01-06 17:39 | NUR ---
SHIFT SUMMARY NO ACUTE CHANGES SINCE PREVIOUS UPDATE NOTES. PT REMAINS AOX3-4. DROWSY THROUGHOUT AFTERNOON, EASILY AROUSABLE TO VERBAL STIMULI. IRRITABLE AND UNCOOPERATIVE WITH CARE AT TIMES. COOPERATIVE WITH TAKING MEDICATIONS. GARBLED SPEECH NOTED. FORGETFUL, BED ALARM ON. VS REMAIN STABLE. TELEMETRY CURRENTLY SHOWING AFIB 130'S. RATE INCREASE NOTED UNABLE TO SAFELY ADMINISTER PO MEDICATIONS THIS MORNING, SEE EARLIER NOTES. PO CARDIZEM AND METOPROLOL ADMINISTERED PER EMAR THIS AFTERNOON. PT CURRENTLY ON 8L VIA HIGH FLOW NASAL CANNULA, SATS >90%. SHALLOW BREATHING NOTED, TACHYPNEIC THROUGHOUT. PO LACTULOSE ADMINISTERED PER EMAR, X2 BM'S THIS SHIFT. VOIDING. UP WITH SBA AND FWW TO THE RESTROOM. DRESSINGS ON BLE C/D/I, NO SHADOWING NOTED. MANAGING BLE PAIN WITH SCHEDULED TYLENOL. SON AT BEDSIDE THROUGHOUT SHIFT. PT IS CURRENTLY SITTING ON SIDE OF BED EATING DINNER. CALL LIGHT IN REACH. WILL REPORT TO ONCOMING RN.
[2023-01-07 01:07] VITALS: BP 128/82
[2023-01-07 03:16] VITALS: BP 112/70
[2023-01-07 03:19] LABS: Base Excess Venous 10.3 mmol/L; Bicarbonate Venous 32.4 mmol/L (24.0-30.0); PCO2 Venous 46.6 mmHg (38-42); pH Blood Venous 7.47 (7.34-7.37)
[2023-01-07 03:41] LABS: BASOPHILS ABSOLUTE AUTO 0.09 K/mm3 (0.00-0.23); BASOPHILS PERCENT AUTO 1 % (0-2); EOSINOPHILS ABSOLUTE AUTO 0.39 K/mm3 (0.00-0.68); EOSINOPHILS PERCENT AUTO 4 % (0-6); Hematocrit 44.9 % (37.0-53.0); Hemoglobin 14.6 g/dL (13.5-17.5); IMMATURE GRAN ABSOLUTE AUTO 0.04 K/mm3 (0.00-0.10); IMMATURE GRAN PERCENT AUTO 0 % (0-1); LYMPHOCYTES ABSOLUTE AUTO 0.91 K/mm3 (0.84-5.20); LYMPHOCYTES PERCENT AUTO 8 % (21-46); MONOCYTES ABSOLUTE AUTO 2.26 K/mm3 (0.16-1.47); MONOCYTES PERCENT AUTO 21 % (4-13); Mean Corpuscular HGB 28.8 pg (26.0-34.0); Mean Corpuscular HGB Conc 32.5 g/dL (31.5-36.5); Mean Corpuscular Volume 89 fL (80-100); Mean Platelet Volume 9.7 fL (9.1-12.4); NEUTROPHILS ABSOLUTE AUTO 7.35 K/mm3 (1.96-9.15); NEUTROPHILS PERCENT AUTO 67 % (41-73); Platelet Count 498 K/mm3 (150-400); RDW Coefficient Variation 16.5 % (11.7-14.2); RDW Standard Deviation 53.6 fL (35.1-46.3); Red Blood Cell Count 5.07 M/mm3 (4.30-5.90); White Blood Cell Count 11.04 K/mm3 (4.00-11.30)
[2023-01-07 04:22] LABS: Albumin, Blood 2.6 g/dL (3.4-5.0); Albumin/Globulin Ratio 0.7 (0.8-1.8); Bilirubin, Total 1.3 mg/dL (0.1-1.0); C-REACTIVE PROTEIN, EXT RANGE 4.72 mg/dL (0.000-0.300); Calcium, Blood 8.9 mg/dL (8.5-10.1); Creatinine, Blood 1.05 mg/dL (0.60-1.20); Globulin, Blood 3.7 g/dL (2.2-4.0); Magnesium, Blood 2.3 mg/dL (1.6-2.4); Potassium, Blood 3.9 mmol/L (3.5-5.5); Total Protein, Blood 6.3 g/dL (6.4-8.2)
--- NOTE | 2023-01-07 05:00 | NUR ---
SHIFT SUMMARY NO ACUTE CHANGES THIS SHIFT. VSS. ALERT TO BASELINE WITH INTERMITTENT CONFUSION. SAT AT SIDE OF BED FOR MAJORITY OF SHIFT, STATES "NOT FEELING TIRED". THIS IS THE NOC TREND WITH THIS PATIENT. PT WITH MULTIPLE BM'S THIS SHIFT, LACTULOSE HELD PER PROTOCOL. REMAINS IN AFIB. ON 6LNC HIFLO, SOMETIMES REFUSES NC AND TAKES IT OUT. LEG WRAPS REMAIN IN PLACE FOR CELLULITIS. PT'S SON REMAINS AT BEDSIDE, RELATIONSHIP REMAINS STRAINED IN THE ROOM. PT NONCOMPLIANT WITH FLUID RESTRICTION. OFTEN TALKS ABOUT LEAVING AMA.
[2023-01-07 07:29] LABS: Vancomycin, Trough 18.5 ug/mL (5.0-10.0)
[2023-01-07 08:34] VITALS: BP 110/87
[2023-01-07 11:45] VITALS: BP 105/77
[2023-01-07 14:52] LABS: Base Excess Venous 7.1 mmol/L; Bicarbonate Venous 29.3 mmol/L (24.0-30.0); PCO2 Venous 48.7 mmHg (38-42); pH Blood Venous 7.42 (7.34-7.37)
[2023-01-07 15:18] LABS: Bun/Creatinine Ratio 38.8 (12.0-20.0); Calcium, Blood 9.1 mg/dL (8.5-10.1); Creatinine, Blood 0.98 mg/dL (0.60-1.20); Potassium, Blood 4.1 mmol/L (3.5-5.5)
[2023-01-07 17:09] VITALS: BP 109/80
--- NOTE | 2023-01-07 18:27 | NUR ---
SHIFT SUMMARY ALERT, ORIENTED, SOMETIMES PLEASANT, SOMETIMES IRRITABLE. INTERMITTENT COMPLIANCE WITH BIPAP, FLUID RESTRICTION, AND POLICIES. TELE AFIB 90-110. LS COARSE THROUGHOUT, OCC PRODUCTIVE COUGH. SHORTNESS OF BREATH WITH EXERTION, DOES NOT KEEP BIPAP ON, SPO2 STABLE 88-92% ON 3L HHHF VIA NC. TOLERATING CARDIAC DIET. CHEM BGS COVERED PER SS. MULTIPLE BM'S THIS SHIFT. HELD MORNING LACTULOSE. VOIDING WELL, OCC INCONTINENT IN PULL UPS. SBA WITHT FWW TO TOILET. MODERATE TO SEVERE EDEMA TO ABD AND BLE. OPEN WEEPING WOUNDS TO BLE IN PROCESS OF HEALING. PATIENT FOLLOWS WITH WOUND CLINIC. DRESSING OF GAUZE AND YAIR WRAP CHANGED THIS SHIFT. COPIOUS WEEPING. SHOWER COMPLETED THIS SHIFT. SON PRESENT IN RECLINER IN ROOM THROUGHOUT DAY.
[2023-01-07 20:12] VITALS: BP 101/69
[2023-01-08 01:11] VITALS: BP 106/80
--- NOTE | 2023-01-08 01:54 | NUR ---
SHIFT SUMMARY: PATIENT HAS BEEN WAXING AND WANING ON MENTATION, WITH RECENTLY HAVING A LARGE AMOUNT OF BRAIN FOG. REQUESTED BIPAP, BIPAP WAS REMOVED DURING DAYS FOR NONCOMPLIANCE, PATIENT IS AWARE STILL WANTS TO TRY TO USE IT, RT WAS CALLED AND PLACED, PATIENT HAS ALREADY WITHIN 15 MINUTES BEEN OFF THE BIPAP 2, HOWEVER, IS STILL ATTEMPTING "TO LEARN THE MACHINE". TOLERATING POORLY WILL SEE HOW HE TOLERATES TOWARD THE END OF THE SHIFT. MAP >65 PATIENT HAS BEEN AFIB BBB PVC, DENIES CHEST PAIN, CHRONICALLY SOB. BIPAP HELPING, DID HAVE A X 1 NOSEBLEED, SELF RESOLVED QUICKLY. SPO2 SPOT CHECKS >90%, ON RA, INCREASED SPO2 WITH SUPLEMENTATION, SPLEMENTATION DECREASES WOB, [id number], PATIENT IS CONSTANTLY REMOVING MASKS, NOT FOLLOWING FR. REFUSES AND GETS OWN FLUIDS, DRESSING CHANGE PREFORMED TO WRAPS. DUE TO WEEPING EDEMA FROM BLE. EDEMA IS UP TO LEVEL OF UPPER ABD. BACK IS EDEMATOUS. BUE EDEMATOUS. PATIENT REFUSING TO ELEVATE LEGS, DUE TO BREATHING. RECOMMENDATIONS: NO CHEST XRAY SINCE THE , REPEAT CBG TO SEE IF CONTINUED INCREASE TO CO2. HOWEVER, IF WEARING THE BIPAP CONSISTENTLY, DISREGAURD.
[2023-01-08 03:14] VITALS: BP 115/94
[2023-01-08 07:07] LABS: Base Excess Venous 3.1 mmol/L; Bicarbonate Venous 26.6 mmol/L (24.0-30.0); PCO2 Venous 45.2 mmHg (38-42)
[2023-01-08 07:16] LABS: Calcium, Blood 8.9 mg/dL (8.5-10.1); Creatinine, Blood 0.95 mg/dL (0.60-1.20)
[2023-01-08 08:07] LABS: BASOPHILS PERCENT AUTO 1 % (0-2); EOSINOPHILS ABSOLUTE AUTO 0.33 K/mm3 (0.00-0.68); EOSINOPHILS PERCENT AUTO 3 % (0-6); Hematocrit 46.4 % (37.0-53.0); IMMATURE GRAN ABSOLUTE AUTO 0.07 K/mm3 (0.00-0.10); IMMATURE GRAN PERCENT AUTO 1 % (0-1); LYMPHOCYTES ABSOLUTE AUTO 1.23 K/mm3 (0.84-5.20); LYMPHOCYTES PERCENT AUTO 10 % (21-46); MONOCYTES ABSOLUTE AUTO 2.19 K/mm3 (0.16-1.47); MONOCYTES PERCENT AUTO 18 % (4-13); Mean Corpuscular HGB Conc 32.3 g/dL (31.5-36.5); Mean Corpuscular Volume 90 fL (80-100); Mean Platelet Volume 9.6 fL (9.1-12.4); NEUTROPHILS ABSOLUTE AUTO 8.59 K/mm3 (1.96-9.15); NEUTROPHILS PERCENT AUTO 69 % (41-73); Platelet Count 561 K/mm3 (150-400); RDW Coefficient Variation 16.2 % (11.7-14.2); RDW Standard Deviation 53.8 fL (35.1-46.3); Red Blood Cell Count 5.18 M/mm3 (4.30-5.90); White Blood Cell Count 12.51 K/mm3 (4.00-11.30)
[2023-01-08 08:15] LABS: Albumin, Blood 2.8 g/dL (3.4-5.0); Albumin/Globulin Ratio 0.7 (0.8-1.8); Bilirubin, Total 1.4 mg/dL (0.1-1.0); Bun/Creatinine Ratio 38.5 (12.0-20.0); Creatinine, Blood 0.91 mg/dL (0.60-1.20); Potassium, Blood 4.1 mmol/L (3.5-5.5); Total Protein, Blood 6.8 g/dL (6.4-8.2)
[2023-01-08 09:05] VITALS: BP 127/85
--- NOTE | 2023-01-08 09:05 | NUR ---
INITIAL ASSESSMENT PATIENT ANSWERS ALL ORIENTATION QUESTIONS CORRECTLY THIS AM. PATIENT AFEBRILE. PATIENT IRRITABLE, WITHDRAWN. PATIENT COOPERATIVE WHILE NURSE IN ROOM. PATIENT CONTINUOUSLY TAKING OFF NC AND O2 PROBE. PATIENT COOPERATIVE WHEN ASKED TO PUT BACK ON BUT TAKES OFF AGAIN AFTER NURSE LEAVES ROOM. BED ALARM OR TAB ALARM ON PATIENT. PATIENT DEMANDING. PATIENT'S SON SLEEPING ON RECLINER IN ROOM. PATIENT TELLS SON TO EAT WHAT HE WANT OFF PATIENT'S TRAY. PATIENT STATES HE JUST WANTS THE MUFFIN. PATIENT'S SON WAKES UP AND EATS THE MUFFIN AND GOES BACK TO SLEEP. PATIENT SBA WITH FWW. PATIENT SOB WITH TALKING AND WALKING. PATIENT CONTINUES TO TRY AND GET UP AND WALK TO BATHROOM AND AROUND ROOM WITHOUT STAFF REGARDLESS OF REMINDERS. LUNGS CLEAR IN UPPER LOBES, DIM IN LOWER LOBES. PATIENT ON EITHER 3 L NC OR BIPAP 16/8 WITH 3 L BLEED IN TO KEEP SATS 90% AND GREATER. PATIENT HAS OCCASIONAL COUGH; NO SPUTUM NOTED. PATIENT IN A. FIB, BBB, WITH PVCS. HR IN THE 120S. SBP IN THE 120S. 3+ WEEPING EDEMA NOTED TO BLES. 3+ EDEMA TO ABD. 1+ EDEMA TO BUES. ABD SEVERELY DISTENDED AND FIRM. SCHEDULED LACTULOSE BEING GIVE. BUMEX GIVEN. APPEARS WNL. PATIENT ON 2000 ML FLUID RESTRICTION. SKIN DUSKY AND COOL. BLES MOTTLED. YAIR WRAPS TO BLES CELLULITIS. SCATTERED BRUISES NOTED. BED LOW, CALL LIGHT IN REACH.
[2023-01-08 12:16] VITALS: BP 112/75
--- NOTE | 2023-01-08 12:20 | NUR ---
PATIENT AFEBRILE. HR IN THE LOW 100S. BP 112/ 75. BLOOD SUGAR 136; NO COVERAGE INDICATED. PATIENT FORGETFUL AT TIMES.
--- NOTE | 2023-01-08 14:13 | NUR ---
SHIFT SUMMARY PATIENT REMAINED ALERT AND ORIENTED X 4, HOWEVER PATIENT FORGETFUL AT TIMES. PATIENT WOULD COME OUT OF ROOM "LOOKING FOR KLEENEX" WHEN KLEENEX ON BEDSIDE TABLE. PATIENT TAKING NC/ BIPAP AND O2 PROBE OFF AND GETTING UP AND AROUND ROOM WITHOUT CALLING ALL DESPITE BEING INFORMED EACH TIME NURSE IN ROOM TO CALL FOR HELP AND TO LEAVE NC/ BIPAP AND O2 PROBE ON. PATIENT IRRITABLE AND DEMANDING. PATIENT AFEBRILE. PATIENT SBA WITH FWW. SON HAS REMAINED AT BEDSIDE, MOSTLY SLEEPING. PATIENT HAS REMAINED ON EITHER 3 L NC OR BIPAP AT 16/8, 3 L BLEED IN. PATIENT SOB WITH TALKING AND EXERTION. PATIENT IN A. FIB, BBB, AND PVCS. HR LOW 100S TO 120S. SBP 112 TO 120S. PATIENT REMAINS VERY EDEMATOUS IN ABD, THIGHS AND BLES. ABDOMEN REMAINS SEVERELY DISTENDED. PATIENT HAS HAD MULTIPLE DAINA BMS THIS SHIFT. PATIENT RECEIVING SCHEDULED LACTULOSE. PATIENT RECEIVED BUMEX THIS SHIFT. PATIENT HAS REMAINED FREQUENTLY GETTING UP AND REPOSITIONING THIS SHIFT. CALL LIGHT IN REACH. REPORT WILL BE GIVEN TO ASSUMING MEDICAL FLOOR NURSE SHORTLY.
--- NOTE | 2023-01-08 14:56 | NUR ---
WOUND CARE PERFORMED TO BLES. BLES REDRESSED. DR. GUTIERREZ CALLED AND INFORMED THAT PATIENT BLADDER SCAN SHOWING 633 MLS OF URINE IN BLADDER. INFORMED PATIENT THAT MAY HAVE TO STRAIGHT CATH BUT WOULD CALL DOCTOR. PATIENT STATES THAT HE REFUSES A STRAIGHT CATH OR AN INDWELLING CATHETER. PATIENT EDUCATED ON IMPORTANCE OF DECOMRPRESSING BLADDER. PATIENT CONTINUES TO REFUSE. DR. GUTIERREZ NOTIFIED. NO ORDERS RECEIVED AT THIS TIME.
--- NOTE | 2023-01-08 15:09 | NUR ---
PATIENT SUCCESSFULLY TRANSFERRED TO MEDICAL FLOOR, ROOM 348. ALL BELONGINGS SENT WITH PATIENT. SON FOLLOWED. TRANSFER COMPLETE.
[2023-01-08 15:19] VITALS: BP 114/78
--- NOTE | 2023-01-08 19:18 | NUR ---
LATE ENTRY-IN HOUSE TRANSFER TRANSFER FROM PCU. ALERT AND ORIENTED X4. CALM AND COOPERATIVE. REMOVES OXYGEN OFTEN AND REQUIRES FREQUENT REMINDING TO KEEP IT ON. SBA WITH FWW. ABDOMEN IS SEVERELY DISTENTED. PER AREA OPERATIONS MANAGER REPORT PT HAD RESIDUAL URINE AFTER URINATING BUT PT REFUSED TO BE STRAIGHT CATHED. PER RN, DR. GUTIERREZ NOTIFIED. NO ACUTE CHANGES WHILE IN MY CARE.
[2023-01-08 19:22] VITALS: BP 103/79
--- NOTE | 2023-01-09 01:48 | NUR ---
PT BECAME VERY AGITATED AT STAFF FOR CONTINUING TO FIX TELE BOX AND LEADS THAT HE KEEPS REMOVING, CALL PLACED TO PROVIDER TELE DC'D
[2023-01-09 04:20] VITALS: BP 115/87
--- NOTE | 2023-01-09 05:10 | NUR ---
SHIFT SUMMARY PT IS A&O4, SB TO THE BR, PT REMOVED HIS OXYGEN SEVERAL TIMES THROUGHOUT THE NIGHT WELL TELE, PT REFUSED TO HAVE LEADS REPLACED PROVIDER NOTIFIED AND TELE DC'D, PT IS AGITATED WITH CARE AT TIMES STATING "HE IS READY TO HURT SOMEONE" FABIENNE MILLWRIGHT ATTEMPTED TO REPLACE OXYGEN, CALL LIGHT INAPPROPRIATELY USED SEVERAL TIMES TO ASK FOR MILLWRIGHT AND TECH "TO GO TO THE STORE AND GET HIM REAL FOOD AND COFFEE" NO COMPLAINTS OF PAIN THIS SHIFT, DRESSINGS TO SIA CDI, CONTINUE POC
[2023-01-09 07:31] VITALS: BP 115/89
[2023-01-09 08:00] LABS: BASOPHILS ABSOLUTE AUTO 0.11 K/mm3 (0.00-0.23); BASOPHILS PERCENT AUTO 1 % (0-2); EOSINOPHILS ABSOLUTE AUTO 0.47 K/mm3 (0.00-0.68); EOSINOPHILS PERCENT AUTO 4 % (0-6); Hematocrit 46.2 % (37.0-53.0); Hemoglobin 15.2 g/dL (13.5-17.5); IMMATURE GRAN ABSOLUTE AUTO 0.03 K/mm3 (0.00-0.10); IMMATURE GRAN PERCENT AUTO 0 % (0-1); LYMPHOCYTES ABSOLUTE AUTO 1.01 K/mm3 (0.84-5.20); LYMPHOCYTES PERCENT AUTO 8 % (21-46); MONOCYTES ABSOLUTE AUTO 2.81 K/mm3 (0.16-1.47); MONOCYTES PERCENT AUTO 21 % (4-13); Mean Corpuscular HGB 29.4 pg (26.0-34.0); Mean Corpuscular HGB Conc 32.9 g/dL (31.5-36.5); Mean Corpuscular Volume 89 fL (80-100); Mean Platelet Volume 9.1 fL (9.1-12.4); NEUTROPHILS ABSOLUTE AUTO 9.09 K/mm3 (1.96-9.15); NEUTROPHILS PERCENT AUTO 67 % (41-73); Platelet Count 563 K/mm3 (150-400); RDW Coefficient Variation 15.9 % (11.7-14.2); RDW Standard Deviation 52.3 fL (35.1-46.3); Red Blood Cell Count 5.17 M/mm3 (4.30-5.90); White Blood Cell Count 13.52 K/mm3 (4.00-11.30)
[2023-01-09 08:24] LABS: Anion Gap 4 mmol/L (6-16); Blood Urea Nitrogen 28 mg/dL (8-24); Bun/Creatinine Ratio 30.4 (12.0-20.0); CO2, Blood 34 mmol/L (21-32); Chloride, Blood 100 mmol/L (98-108); Creatinine, Blood 0.92 mg/dL (0.60-1.20); Glomerular Filtration Rate 93 (60-); Glucose, Blood 139 mg/dL (70-99); Potassium, Blood 3.8 mmol/L (3.5-5.5); Sodium, Blood 138 mmol/L (136-145); Vancomycin, Trough 19.5 ug/mL (5.0-10.0)
--- NOTE | 2023-01-09 12:42 | NUR ---
PT CONTINUOSLY REMOVING BIPAP AND NC. CONTINUOUS BIOX. PT SOMULENT SAT [address] BACK ON. RT NOTIED AND CAME TO BEDSIDE TO ASSESS. PT IS AROUSABLE. DR. GUTIERREZ NOTIFIED. VBG ORDERED. MD WILL COME TO BEDSIDE
[2023-01-09 13:02] VITALS: BP 112/90
[2023-01-09 13:40] LABS: Base Excess Venous 7.1 mmol/L; Bicarbonate Venous 27.6 mmol/L (24.0-30.0); PCO2 Venous 71.1 mmHg (38-42); pH Blood Venous 7.29 (7.34-7.37)
--- NOTE | 2023-01-09 13:46 | NUR ---
PT MONITORED BY VIRTUAL AGATE SETTER. VBG ABNORMAL, DR. GUTIERREZ NOTIFIED. NURSE TO CONTACT RT TO ASSESS BIPAP MASK.
--- NOTE | 2023-01-09 15:16 | NUR ---
PT AGREEABLE TO BIPAP AT THIS TIME. RT AT BEDSIDE TO ACCESS MASK FOR LEAK. PT EDUCAITED ON IMPORTANCE OF KEEPING BIPAP MASK ON TO REDUCE RISK OF RESPIRATORY FAILURE. PT IS MORE ALERT AT THIS TIME. VIRTUAL COTTON PULLER IN USE.
--- NOTE | 2023-01-09 17:36 | NUR ---
SHIFT SUMMARY PT IS ALERT AND ORIENTED X4. NON COMPLIANT WITH DIET AND OXYGEN EQUIPMENT. DENIES PAIN. PT DOES NOT CALL APPROPRIATELY. VIRTUAL CONSULTING SENIOR PRACTICE DIRECTOR IN ROOM. HE IS CALM AND PLEASANT. BED IS IN THE LOWEST POSITION WITH CALL LIGHT ON. BIPAP ON.
[2023-01-09 21:14] VITALS: BP 82/64
[2023-01-09 21:31] VITALS: BP 97/62
[2023-01-10 04:31] VITALS: BP 111/71
[2023-01-10 06:04] LABS: PCO2 Venous 67.3 mmHg (38-42); pH Blood Venous 7.34 (7.34-7.37)
--- NOTE | 2023-01-10 06:06 | NUR ---
PT SITTING UP IN CHAIR DURING BEDSIDE REPORT- PT ON VIRTUAL MONITORING D/T NON COMPLIANT WITH BIPAP- PT CURRENTLY ON 3L VIA NC- PT AMBULATED TO BR WITH FWW- PT RETURNED TO CHAIR, PT WORE BIPAP INTERMITTENLY T/O NIGHT, THE VIRTUAL MONITOR WOULD ALARM IF THEY FEARED HE WOULD FALL OUT OF CHAIR OR REMOVES HIS MASK- PT ON 2L FLUID RESTRICTION AND APPEARED TO BE COMPLIENT - PT'S SON NELI IS IN ROOM- ENCOURAGED TO DISCUSS WITH STAFF BEFORE GETTING DADS REQUEST, HE AGREED, IV RIGHT AC INFUSES WITHOUT PROBLEMS, PT UP IN CHAIR - PT REFUSES TO LAY IN THE BED OR ELEVATE FEET- BILAT LEGS WRAPPED WITH BANDAGE AND YAIR BANDAGE- BOTH C/D & I - CALL LIGHT WITHIN REACH
[2023-01-10 06:18] LABS: BASOPHILS ABSOLUTE AUTO 0.14 K/mm3 (0.00-0.23); BASOPHILS PERCENT AUTO 1 % (0-2); EOSINOPHILS ABSOLUTE AUTO 0.53 K/mm3 (0.00-0.68); EOSINOPHILS PERCENT AUTO 5 % (0-6); Hematocrit 46.2 % (37.0-53.0); Hemoglobin 14.9 g/dL (13.5-17.5); IMMATURE GRAN ABSOLUTE AUTO 0.04 K/mm3 (0.00-0.10); IMMATURE GRAN PERCENT AUTO 0 % (0-1); LYMPHOCYTES PERCENT AUTO 11 % (21-46); MONOCYTES ABSOLUTE AUTO 2.34 K/mm3 (0.16-1.47); MONOCYTES PERCENT AUTO 21 % (4-13); Mean Corpuscular HGB 28.8 pg (26.0-34.0); Mean Corpuscular HGB Conc 32.3 g/dL (31.5-36.5); Mean Corpuscular Volume 89 fL (80-100); Mean Platelet Volume 9.2 fL (9.1-12.4); NEUTROPHILS ABSOLUTE AUTO 7.08 K/mm3 (1.96-9.15); NEUTROPHILS PERCENT AUTO 62 % (41-73); Platelet Count 543 K/mm3 (150-400); RDW Standard Deviation 52.5 fL (35.1-46.3); Red Blood Cell Count 5.18 M/mm3 (4.30-5.90); White Blood Cell Count 11.33 K/mm3 (4.00-11.30)
[2023-01-10 06:38] LABS: Albumin, Blood 3.1 g/dL (3.4-5.0); Albumin/Globulin Ratio 0.8 (0.8-1.8); Bilirubin, Total 1.2 mg/dL (0.1-1.0); Bun/Creatinine Ratio 26.4 (12.0-20.0); Calcium, Blood 9.1 mg/dL (8.5-10.1); Creatinine, Blood 0.98 mg/dL (0.60-1.20); Globulin, Blood 4.1 g/dL (2.2-4.0); Potassium, Blood 3.5 mmol/L (3.5-5.5); Total Protein, Blood 7.2 g/dL (6.4-8.2)
--- NOTE | 2023-01-10 06:48 | NUR ---
RT ATTEMPTED TO ADJUST NATURAL GAS PLANT SUPERVISOR MONITOR AND PT REFUSED, PUTS HANDS ON SIDE OF HEAD AND THEN THE PROBE CAN'T READ- ONCE READING THE OXYGEN AND PULSE WNL
[2023-01-10 08:05] VITALS: BP 105/83
--- NOTE | 2023-01-10 09:00 | NUR ---
ASSUMED CARE OF PT. PT A&O TO PLACE, SITUATION, AND PERSON. CONFUSED REGARDING SPECIFIC DATE, ABLE TO GIVE YEAR. PT COMPLAINS OF PAIN REGARDING IV. IV ACCESS ASSESSMENT FINDS PAIN AND TNEDERNESS AT SITE, IV D/LISSETTE AND NEW IV ACCESS REQUIRED.
[2023-01-10 13:13] VITALS: BP 96/62
--- NOTE | 2023-01-10 14:13 | NUR ---
ASSUMED CARE OF PT AT 0700. PT IV CHANGED DUE TO PATENCY. PT SHOWERED INDEPENDENTLY AND WOUND CARE PERFORMED ON BILATERAL LOWER EXTREMITIES.
--- NOTE | 2023-01-10 16:31 | NUR ---
SHIFT SUMMARY PT TOOK SHOWER TODAY. WOUND CARE COMPLETED AND REBANDADGED AFTERWARDS. NEW PHOTOS TAKEN. IV REPLACED TWICE TODAY THEY WERE ACCIDENTLY PULLED FROM PATIENT MOVING AROUND IN CHAIR. PT REMINDED TO CALL FOR HELP BEFORE GETTING OUT OF THE CHAIR WHILE HE HAS HIS IV RUNNING. PT STATES HE UNDERSTANDS, BUT CONTINUES TO MOVE HIMSELF. PT VOIDING AND HAVING SEVERAL BMS TODAY. NO OTHER ACUTE CHANGES IN ASSESSMENT AT THIS TIME. PT REMINDED THAT HE IS ON AN ADA DIET AND STAFF CANNOT RUN TO THE STORE FOR HIM. CALL LIGHT IN REACH. DENIES OTHER NEEDS AT THIS TIME.
[2023-01-10 17:08] VITALS: BP 109/71
--- NOTE | 2023-01-10 18:29 | NUR ---
INCREASINGLY RESTLESS PT IS INCREASINGLY RESTLESS. REFUSING TO WEAR HIS CONT PULSE OX IT HAS HAD A POOR SIGNAL AND BEEPED MOST THE DAY. RT NOTIFIED AND PLANNING ON SWITCHING HIM TO A DIRECT LINE FOR A BETTER READING OVERNIGHT. PT SEEMS PLEASED BY THIS. PT REQUESTING MORE ICE AND PAIN MEDS. PT IS NOT DUE FOR MEDS AND HAS MET HIS DAYTIME FLUID RESTRICTION. STATES HE UNDERSTANDS AND CAN WAIT FOR THE NEXT SHIFT.
--- NOTE | 2023-01-10 18:52 | NUR ---
PT AGITATED AND BANGED HEAD INTO WALL PT AGITATED OVER NOT BEING ABLE TO GO OUT AND SMOKE. PT ALSO UPSET THAT HIS LEG IS THROBBING AND THERE IS NOTHING ELSE ORDERED TO GIVEN HIM. PT PURPOSLY BANDGED HIS HEAD INTO THE WALL ON HIS WAY TO THE BATHROOM. WITNESSED BY THE SIDER MECHANIC. PT EVALUATED AND APPEARS TO ONLY HAVE A SMALL CUT THE SIZE OF A PENCIL ERASER ON HIS FOREHEAD FROM THE EVENT. DR. GERMAN NOTIFIED OF EVENT AND INCREASED AGITATION/RESTLESSNESS T/O SHIFT WELL THE PTS PAIN LEVEL. DR. GERMAN ORDERED SEROQUEL TO TRY OVERNIGHT. PT HELPED BACK TO HIS CHAIR AND REMINDED WHY HE IS HERE IN THE HOSPITAL AND THAT THIS IS A NICOTINE FREE FACILITY.
[2023-01-10 19:47] VITALS: BP 110/70
[2023-01-11] VITALS (52 sets, daily range): BP systolic 82–133; BP diastolic 56–110
--- NOTE | 2023-01-11 06:17 | NUR ---
SHIFT SUMMARY PT SITTING UP IN CHAIR DURING BEDSIDE REPORT FROM LILY, PT AGITATTED- NEW ORDER FOR SEROQUEL WILL GIVE SOON VERIFIED- PT UPSET AND THREATENING TO LEAVE AND REPEATING, " YOU DON'T WANT TO MEET THE REAL STEFF, YOU WON'T LIKE HIM"- ATTEMPTED TO REORIENT PT- JUDY QUINTEROS CAME OUT BEFORE HS MED PASS TO NOTIFY STAFF THAT PT IS TALKING TO A FRIEND WHO IS NOT IN THE ROOM - SON CONCERNED OF THE CONFUSION-PT ON VIRTUAL MONITORING GAVE SEROQUEL- 20 MINUTES LATER ABLE TO GET HIM IN RECLINER WITH ASSISTANCE - ELEVATED HIS LEGS, APPLIED BIPAP- 2229 SON USED CALL LIGHT TO NOTIFY STAFF THAT PT WAS UP IN ROOM, PT STANDING UP IN ROOM URINATING ON WALL - PT COVERED IN LOOSE BM- ATTEMPTED TO REDIRECT PT TO BSC- PT HITTING AND CUSSING AT THIS RN- STAFF ASSISTANCE CALLED- PT SAT ON BSC - HAD LARGE LOOSE BM- PT CONTINUED TO HIT AT STAFF AND THREATEN STAFF WHILE TRYING TO REMOVED SOILED BRIEF AND GOWN- CALL TO CLAUDIA RUIZ FOR SOFT RESTRAINTS- 4 STAFF ASSIST FOR PT TO LAYIN IN BED, SOFT RESTRAINTS APPLIED TO BILAT WRIST, PT CUSSING AND SCREAMING- CALL TO BEAU SUPERVISOR POULTRY HATCHERY RE RESTRAINT ORDER AND MEDICATION TO CALM PT- GAVE ATIVAN 1MG- APPLIED PROMOS EXECUTIVE PRODUCER, BIPAP, CHANGED YAIR BANDAGE TO RIGHT LEG- SOILED WITH BM- PT RELEASED PER RESTRAINT PROTOCOL, MONITORED EVERY 15 MINUTES- JUDY QUINTEROS IN ROOM PLAYING ON COMPUTER IN CORNER- BED LOW POSITION, CALL LIGHT WITHIN REACH, BED ALARM IN PLACE
--- NOTE | 2023-01-11 06:33 | NUR ---
0550 D/C VIRTUAL CAMERA MONITORING, PT CURRENTLY RESTING , SOFT RESTRAINTS IN PLACE, WILL CONTINUE TO MONITOR FOR NEED OF RESTRAINTS AND/OR CAMERA
[2023-01-11 06:51] LABS: Albumin, Blood 2.8 g/dL (3.4-5.0); Albumin/Globulin Ratio 0.8 (0.8-1.8); Bilirubin, Total 1.4 mg/dL (0.1-1.0); Creatinine, Blood 1.04 mg/dL (0.60-1.20); Globulin, Blood 3.6 g/dL (2.2-4.0); Magnesium, Blood 2.1 mg/dL (1.6-2.4); Phosphorus, Blood 4.5 mg/dL (2.5-4.9); Potassium, Blood 3.7 mmol/L (3.5-5.5); Total Protein, Blood 6.4 g/dL (6.4-8.2)
[2023-01-11 07:24] LABS: BASOPHILS PERCENT AUTO 1 % (0-2); EOSINOPHILS ABSOLUTE AUTO 0.38 K/mm3 (0.00-0.68); EOSINOPHILS PERCENT AUTO 4 % (0-6); Hemoglobin 13.2 g/dL (13.5-17.5); IMMATURE GRAN ABSOLUTE AUTO 0.03 K/mm3 (0.00-0.10); IMMATURE GRAN PERCENT AUTO 0 % (0-1); LYMPHOCYTES ABSOLUTE AUTO 1.05 K/mm3 (0.84-5.20); LYMPHOCYTES PERCENT AUTO 12 % (21-46); MONOCYTES ABSOLUTE AUTO 1.86 K/mm3 (0.16-1.47); MONOCYTES PERCENT AUTO 21 % (4-13); Mean Corpuscular HGB 28.9 pg (26.0-34.0); Mean Corpuscular HGB Conc 32.2 g/dL (31.5-36.5); Mean Corpuscular Volume 90 fL (80-100); Mean Platelet Volume 8.9 fL (9.1-12.4); NEUTROPHILS ABSOLUTE AUTO 5.38 K/mm3 (1.96-9.15); NEUTROPHILS PERCENT AUTO 61 % (41-73); Platelet Count 419 K/mm3 (150-400); RDW Coefficient Variation 16.1 % (11.7-14.2); Red Blood Cell Count 4.57 M/mm3 (4.30-5.90)
[2023-01-11 08:35] LABS: Base Excess Venous 8.1 mmol/L; Bicarbonate Venous 29.8 mmol/L (24.0-30.0); PCO2 Venous 61.8 mmHg (38-42); pH Blood Venous 7.35 (7.34-7.37)
--- NOTE | 2023-01-11 08:53 | NUR ---
TRANSFER TO PCU PT RESTING IN BED WITH INCREASE IN RESTLESSNESS AND AGITATION UPON ARRIVAL TO UNIT. PT CALLING "HELP" AND WHEN ATTEMPTED TO CHANGE THE PATIENTS BREIF, PT BECAME COMBATIVE WITH STAFF, YELLING "YOU CANT CONTAIN ME". SECURITY AND CORRECTIONAL CAPTAIN CALLED FOR ASSISTANCE. AT THIS TIME PT HAS RIPPED OFF HIS O2 AND WAS SATTING AT 79%-82% ON RA WITH A HR IN THE 130-150S. ATIVAN GIVEN ORDERED. PT RELAXED AND ALLOWED FOR BIPAP TO BE PLACED BACK ON. SATING RETURNED TO THE 90S AND HR DECREASED TO THE 110S. WRIST RESTRAINTS REMOVED WHILE BIPAP WAS IN PLACE. PT CONTINUED TO TAKE HIS MASK OFF. UNABLE TO REORIENT PATIENT AND PLACE MASK BACK ON. PT BECAME AGITATED AND COMBATIVE AGAIN WHILE TRYING TO GET OUT OF BED. SECURITY CALLED AGAIN. PT WAS ABLE TO BE PLACED BACK INTO BED AND WRIST RESTRAINTS WERE REAPPLIED. RESTRAINTS WERE OFF THE PATIENT FOR APPROX 10 MINUTES. BIPAP MASK WAS REAPPLIED AND CORRECTIONAL CAPTAIN REMAINED IN THE ROOM WITH THE PATIENT FOR SAFETY. DR. GUTIERREZ NOTIFIED OF ALL THIS AND ORDER TO TRANSFER TO PCU WAS PLACED. REPORT GIVEN TO YANG ROMEO WITHOUT FURTHER QUESTIONS.
--- NOTE | 2023-01-11 10:24 | NUR ---
ARRIVAL TO PCU@0830 PT ARRIVED TO ROOM [id number] FROM RM348 D/T PT AGGITATION, CONFUSION, AND PULLING OFF BIPAP. ON ARRIVAL, PT IS IN BILATERAL SOFT WRIST RESTRAINS AND 3L O2 VIA NC. PT APPEARS TO BE SLEEPING, BUT BECOMES AGGITATED AND COMBATIVE QUICKLY AFTER BEING DISTURBED FOR VS, ASSESSMENT AND TELE PLACEMENT. PT ATTEMPTING TO GET OOB, PT IS CONFUSED, DISORIENTED AND DOES NOT FOLLOW COMMANDS. ADDITIONAL STAFF IN ROOM TO ASSIST PT'S LEGS BACK IN BED. PT CONTINUES TO TRY TO GET OOB DESPITE ATTEMPTS TO REORIENT, CALM AND REASSURE THE PT. PT IS YELLING AND SCREAMING AT STAFF, ATTEMPTING TO HIT AND KICK STAFF. DR GUTIERREZ AT BEDSIDE 0850, MEDICATION ORDERS RECEIVED AND PLACED. PT CONTINUES TO BE CONFUSED, EXTREMELY AGGITATED AND ATTEMPTING TO HIT/KICK STAFF. SOFT RESTRAINTS ALSO APPLIED TO BLEs. PT GIVEN 5MG HALDOL X2 AND APPEARS TO FALL ASLEEP. RESTRAINTS REMOVED AND PT PLACED ON BIPAP. PT CONTINUES TO BECOME AGGITATED AND TRIES TO REMOVE BIPAP WHEN DISTURBED. DECISION TO TRANSFER PT TO ICU PER DR GUTIERREZ FOR CONTINUED NEED FOR BIPAP AND SEDATION. REPORT GIVEN TO RECEIVING RN AND PT TRANSFERED WITH ALL BELONGINGS TO ICU14. PTs SON TO ICU WITH PT.
[2023-01-11 11:46] LABS: Vancomycin, Trough 20.6 ug/mL (5.0-10.0)
--- NOTE | 2023-01-11 12:25 | NUR ---
HR AND AMMONIA PATIENT HR ELEVATED IN 130S IN AFIB RHYTHM. CALL MADE TO DR. GUTIERREZ AND ORDER RECEIVED FOR METOPROLOL 5MG IV X 1. ALSO NOTIFIED OF AMMONIA 51 AND UNABLE TO TAKE PO. ORDER RECEIVED TO HOLD OFF ON STARTING LACTULOSE ENEMA AND MONITOR FOR IMPROVED NEUROLOGICAL STATUS.
--- NOTE | 2023-01-11 15:51 | NUR ---
HR PATIENT REMAINS IN AFIB W/ RVR RATE 130'S-140'S, BP SOFT 84/73 MAP 78. CALL MADE TO DR. GUTIERREZ AND ORDER RECEIVED FOR AMIODARONE GTT, NO BOLUS.
--- NOTE | 2023-01-11 16:50 | NUR ---
Spoke with Primary RN and Dr Pichardo and discussed case. Pt resting in bed with eyes closed and wearing BIPAP. Son Flavio at bedside. Engaged in therapeutic conversation with son Flavio. Reviewed plan of care and discussed the importance of planning for the future. Educated on disease process including trajectory. Flavio states he and Pt lived with Flavio's uncle in the past but had a falling out with uncle and uncle's sons. He reports possibility of living with uncle but is unsure. He reports Pt's other son who is 17 is working and living with his girlfriend. Flavio intermittently tearful. Continued supportive conversation. Placed Social Service Consult for resources for son. Palliative Care will remain available
--- NOTE | 2023-01-11 17:27 | NUR ---
"Spiritual Care Attempted | Nurse request Pt. is on a Bibpap and is initially not responsive. Pts. sons are present and welcome my visit. Began facilitating a life review with the sons when Pt. became agitated and nurses were called in. Charge nurse Nahum request trent claim review medical director to contact security who arrived. Stayed with Pts. sons until they departed the ICU. Will remain available to family and staff."
[2023-01-11 18:37] LABS: Base Excess Venous 6.6 mmol/L; Bicarbonate Venous 29.6 mmol/L (24.0-30.0); PCO2 Venous 44.7 mmHg (38-42); pH Blood Venous 7.45 (7.34-7.37)
--- NOTE | 2023-01-11 18:56 | NUR ---
SHIFT SUMMARY PATIENT BECAME AGITATED, ATTEMPTING OOB UNSAFELY, PULLING AT LINES AND CURSING AT STAFF. HALDOL 5MG IV X 2 GIVEN FOR AGITATION AND PRECEDEX TITRATED UP TO 0.7 MCG/KG/HR. INTERMITTENT PERIODS OF LUCIDITY. LACTULOSE ENEMA INITIATED. PATIENT'S SONS AT BEDSIDE THIS EVENING AND UPDATED ON PATIENT STATUS. AMIO GTT INF @ 1MG/HR. NO BM THIS SHIFT. ON BIPAP 16/8 FIO2 40% WITH FIO2 MID 90'S. BP REMAINS SOFT AND RHYTHM IS AFIB W/ RVR RATE 130'S-170'S. NO OTHER CHANGES THIS SHIFT.
--- NOTE | 2023-01-11 21:55 | NUR ---
PT PULLED OFF BIPAP MASK AND ATTEMPTED TO HIT AND KICK STAFF WELL GET OUT OF BED. CENTRIFUGAL CASTING MACHINE OPERATOR JULIA NOTIFIED. ORDERS GIVEN FOR RESTRAINTS. CENTRIFUGAL CASTING MACHINE OPERATOR UPDATED ON PT CONDITION AND THAT PT DOES NOT TOLERATE NC WELL AND WILL REQUIRE BIPAP WHILE RESTRAINED. PT IS ORIENTED TO SELF ONLY, VERY AGITATED AND NOT REDIRECTABLE AT THIS TIME. PT IS ON PRECEDEX AT MAX DOSE OF 0.7MCG/KG/HR. HE WAS GIVEN HALDOL RIGHT BEFORE BEGINNING OF MY SHIFT. CENTRIFUGAL CASTING MACHINE OPERATOR UPDATED THAT PT LUNGS ARE TIGHT W/WHEEZES AND THAT HE IS CURRENTLY ON AN AMIODARONE DRIP AND REMAINS IN AFIB RVR W/RATES 120-140S. BP ARE SOFT, BUT WNL AT THIS TIME. CENTRIFUGAL CASTING MACHINE OPERATOR AWARE. PT WILL BE PLACED BACK ON BIPAP.
[2023-01-12] VITALS (48 sets, daily range): BP systolic 69–141; BP diastolic 48–100
[2023-01-12 05:13] LABS: BASOPHILS ABSOLUTE AUTO 0.11 K/mm3 (0.00-0.23); BASOPHILS PERCENT AUTO 1 % (0-2); EOSINOPHILS ABSOLUTE AUTO 0.11 K/mm3 (0.00-0.68); EOSINOPHILS PERCENT AUTO 1 % (0-6); Hematocrit 43.7 % (37.0-53.0); Hemoglobin 14.1 g/dL (13.5-17.5); IMMATURE GRAN ABSOLUTE AUTO 0.03 K/mm3 (0.00-0.10); IMMATURE GRAN PERCENT AUTO 0 % (0-1); LYMPHOCYTES ABSOLUTE AUTO 1.04 K/mm3 (0.84-5.20); LYMPHOCYTES PERCENT AUTO 13 % (21-46); MONOCYTES ABSOLUTE AUTO 1.36 K/mm3 (0.16-1.47); MONOCYTES PERCENT AUTO 17 % (4-13); Mean Corpuscular HGB Conc 32.3 g/dL (31.5-36.5); Mean Corpuscular Volume 90 fL (80-100); NEUTROPHILS ABSOLUTE AUTO 5.18 K/mm3 (1.96-9.15); NEUTROPHILS PERCENT AUTO 66 % (41-73); Platelet Count 362 K/mm3 (150-400); RDW Coefficient Variation 16.1 % (11.7-14.2); RDW Standard Deviation 52.9 fL (35.1-46.3); Red Blood Cell Count 4.87 M/mm3 (4.30-5.90); White Blood Cell Count 7.83 K/mm3 (4.00-11.30)
[2023-01-12 05:37] LABS: Bun/Creatinine Ratio 28.4 (12.0-20.0); Calcium, Blood 8.8 mg/dL (8.5-10.1); Creatinine, Blood 1.16 mg/dL (0.60-1.20)
--- NOTE | 2023-01-12 05:54 | NUR ---
SHIFT SUMMERY PT CONTINUES TO BE CONFUSED, BECOMING VERY AGITATED W/ANY STIMULATION OR ATTEMPT TO PROVIDE CARE. HE HAS BEEN ON BIPAP THROUGHTOUT THE NIGHT. OXYGEN SAT ARE >90%. PT IS IN AFIB ON THE LIFE SKILLS COORDINATOR. BP WNL. AMIODORONE DRIP INFUSING. PT IS ON PRECEDEX AT 0.7MCGS/KG/HR. RECTAL TUBE PATENT. PT CONTINUES TO ONLY BE ORIENTED TO HIS NAME AT THIS TIME.
--- NOTE | 2023-01-12 07:00 | NUR ---
ASSUMPTION OF CARE PT RECEIVING PRECEDEX 0.7MCG/KG/HR AND AMIODARONE 0.5MG/HR. PT ON BIPAP 16/8/50%. PT SOMNOLENT, MOVES EXTREMITIES DURING CARE. PRECEDEX DECREASED TO 0.5MCG/KG/HR AND BILAT SOFT WRIST RESTRAINTS REMOVED. AFIB ON MONITOR WITH RATE IN 130S. SBP 90S, MAP >65. PO MEDICATIONS HELD DUE TO MENTATION AND ASPIRATION RISK. RECTAL TUBE IN PLACE FOR LACTULOSE ENEMAS. BED IN LOW POSITION, BED ALARM ON.
--- NOTE | 2023-01-12 09:27 | NUR ---
UPDATE PT WAKING UP, PULLS BIPAP MASK OFF. ATTEMPTED TO PLACE BIPAP MASK BACK ON PT'S FACE BUT PT NONCOMPLIANT. RT NOTIFIED AND PT PLACED ON AIRVO. SUCTIONING AND ORAL CARE DONE. PT MORE ALERT, ANSWERING QUESTIONS. HE STS "I DON'T WANT TO BE ON A MACHINE" REPEATEDLY. AIRVO SETTINGS 40L/50%.
--- NOTE | 2023-01-12 09:40 | NUR ---
UPDATE/CODE STATUS HOSPITALIST AND THIS RN AT BEDSIDE. PT IS ABLE TO STATE HIS NAME. HE HAS HIS LEG OVER THE EDGE OF THE BED AND WHILE ASSISTING PT'S LEG BACK IN BED PT STS "I NEED TO GET OUT OF HERE". DISCUSSION REGARDING PT'S GOALS OF CARE. WHEN ASKED IF PT WOULD LIKE INTUBATION, PT STS "NO". WHEN ASKED ABOUT CPR, PT STS "NO". PT DENIES HAVING ANY CHILDREN BUT WHEN ASKED WHO JOSE FRANCISCO AND ABIGAIL ARE, HE STS "MY SONS". HE DENIES THAT THEY ARE BIOLOGICAL CHILDREN. WHEN ASKED IF THEY CAN MAKE MEDICAL DECISIONS FOR HIM, HE STS "NO". THIS CONVERSATION WITNESSED BY THIS RN, DR ACEVES, AND [facility]. PT ASSISTED BACK INTO BED AND BECOMES AGITATED. HE BEGINS PULLING AIRVO OFF AND PROVIDED EDUCATION REGARDING NEED FOR SUPPLEMENTAL OXYGEN. PT STS "I DON'T NEED IT". HE ATTEMPTS TO SIT UP IN BED AND MOVE TO EDGE OF BED. PT INSTRUCTED TO STAY IN BED FOR SAFETY AND FALL RISK. PT ASSISTED BACK INTO BED. HE BEGINS TO PUSH AGAINST STAFF, SWING ARMS, PULL OFF AIRVO, AND YELL AT STAFF. HE IS NOT REDIRECTABLE AT THIS POINT. BILAT SOFT WRIST RESTRAINTS APPLIED. ETHICS CONSULT IN PROGRESS. PT SOMNOLENT AT THIS TIME. SEE ACE VILLANUEVA' NOTE REGARDING MEETING. PT SOILED SELF WITH URINE. 3 STAFF MEMBERS NEEDED FOR LINEN CHANGE. PT PULLING OFF AIRVO, SWINGING ARMS AT STAFF MEMBERS, NONCOMPLIANT WITH CARE. NEW LINENS AND BEDBATH COMPLETED. PT ON AIRVO 50L/60%.
--- NOTE | 2023-01-12 10:25 | NUR ---
"Spiritual Care Support Attempted | Nurse request Pt. is in bed and is presently not responsive. Attempts are made to address the Pts. critical need to let the nursing staff assist Pt. Pt. did not respond during this visit. Staff are present and have called for Palliative Care and an Ethics Consult."
--- NOTE | 2023-01-12 10:27 | NUR ---
Consultation services requested. The principal is a 62 y/o male with excacerbated COPD, unstable respiratory function, cardiac complications, and various destabalizing co-morbitities. The principal is medically confirmed; via two provider attestation to be in a terminal condition, where ongoing aggressive treatment would be regarded as disproportionate. While not unbefriended, the principals proxy resource is not a verified relative. Additionally, we have no recourse to advance care planning instruments. Mr Becerril has a historical pattern of clinical non-adherence, and has consistently refused various forms of care during his hospitalization; including non-invasive airway support. The attending doctor reports that while the principal was in a lucid state, he confirmed that he did not want to pursue reversing interventions, or continue airway management. He further indicated that he did not want his defualt proxy / friend making treatment decisions on his behalf. Given the medical context and the situational factors evaluated above, it would be ethically appropriate to forgo and withdraw stabalizing therapies and transition to care de-escelation and comfort treatment only. Based on the extant information, this path would appear to comport best with the preferences communicated directly by the principal, and would therefore allow us to support his dignity of choice, honor his right to autonomy, and respect his final wishes. Thank you for this consult. Saul Torrez, PhD, MIMA
--- NOTE | 2023-01-12 11:00 | NUR ---
UPDATE PT SHOUTING "I CAN'T BREATHE". HEAD OF BED RAISED TO HIGHEST POSITION AND INSTRUCTED PT TO BREATHE THROUGH HIS NOSE. PT STS "I CAN'T BREATHE THROUGH MY NOSE". EXPLAINED NEED FOR SUPPLEMENTAL OXYGEN AGAIN AND OFFERED BIPAP MASK. PT IN AGREEANCE TO WEAR BIPAP. BILAT SOFT WRIST RESTRAINTS REMOVED. AFIB ON MONITOR WITH RATE IN 150S-160S. SBP 80S-90S, MAP >65. BIPAP SETTINGS 16/8 WITH 50% FIO2. PT RECEIVING PRECEDEX 0.2MCG/KG/HR.
--- NOTE | 2023-01-12 11:01 | NUR ---
Pt resting in bed with care [facility]. Ethics consult placed and Saul Torrez arrives to discuss case. Pt currently confused and is on AIRVO. Primary RN and Dr Santamaria had a conversation ealier with Pt when he was clear and appropirate. Pt refusing BIPAP and his wishes are DNR. Prognosis discussed and escalation/de-escalation discussed. Please see Saul Torrez's note. Plan to move forward with comfort care. Will update son on plan once orders are received. Palliative Care will remain available
--- NOTE | 2023-01-12 12:23 | NUR ---
Spoke with Dr Santamaria and discussed case. Placed comfort care order and comfort care order set per V/O from Dr Santamaria. Also placed order for Ativan IV 1-2 mg every 2 hours as needed per V/O from Dr Santamaria. Called and spoke with Pt's son Flavio Reed, and Flavio's uncle Nagi. Provided curtiest call for plan to move forward with comfort care. Gentle education on Pt's prognosis including his wishes that were discussed with care team earlier with Pt. Derek reports being in school and will come to the hospital when he gets out. Spoke with Primary RN Elizabeth and reported plan to wait to implement comfort care plan until family arrives. Son Flavio arrives and this RN offered supportive visit. Offered therapeutic listening and answered questions. Palliative Care will F/U for continued therapeutic visits.
--- NOTE | 2023-01-12 12:36 | NUR ---
UPDATE PT BECAME ANXIOUS, PULLING AIRVO OFF. PT ATTEMPTS TO GET OUT OF BED PLACING MAJORITY OF HIS WEIGHT ON THE BED SIDE RAIL. SIDE RAIL BROKE. PT SAFELY REPOSITIONED IN BED. AIRVO PLACED BACK ON PT. PT INTERMITTENTLY REDIRECTABLE. FOR PT SAFETY, PT TRANSITIONED TO NEW BED. BED ALARM AND SIDE RAILS UP. NELI AND BROTHER IN LAW AT BEDSIDE, UPDATED ON CONVERSATION WITH PT FROM THIS MORNING. WAITING FOR MORE FAMILY AT THIS TIME.
--- NOTE | 2023-01-12 14:25 | NUR ---
UPDATE PT ON AIRVO 40L/50%. HEAD OF BED IN UPRIGHT POSITION FOR COMFORT. PT SOMNOLENT. PT CONTINUES TO RECEIVE PRECEDEX 0.2MCG/KG/HR AND AMIODARONE 0.5MG/HR. FAMILY REMAIN AT BEDSIDE.
--- NOTE | 2023-01-12 15:52 | NUR ---
FAMILY DISCUSSION PER FAMILY REQUEST, DR ACEVES AT BEDSIDE. THIS RN AND ACE PALLIATIVE CARE ALSO PRESENT. PT VERBALIZES UNDERSTANDING OF PLAN OF CARE AND THAT PT VERBALIZES HIS WISHES THIS MORNING.
--- NOTE | 2023-01-12 16:30 | NUR ---
COMFORT CARE AMIODARONE AND PRECEDEX OFF. PT MEDICATED PER EMAR. AIRVO REMOVED, 2L NC PLACED FOR COMFORT. PT APPEARS COMFORTABLE, NO RESPIRATORY DISTRESS AT THIS TIME. FAMILY AT BEDSIDE.
--- NOTE | 2023-01-12 17:34 | NUR ---
Multiple visits today. Pt placed on comfort care and titrated off AIRVO to 2 L O2 via NC. Offered multiple supportive visit for family. Can Filling Machine Operator Aysha will provide resources for sons. Called and spoke with Pt's mother. Provided update and reviewed plan of care including prognosis. Offered therapeutic listening and answered questions. Mother expresses appreciation and reports no other concerns at this time. Palliative Care will remain available
--- NOTE | 2023-01-12 18:07 | NUR ---
SHIFT SUMMARY PT HAS TRANSITIONED TO COMFORT CARE. SEE PREVIOUS NOTES. HE ON 2L NC FOR COMFORT. FAMILY REMAINS AT BEDSIDE.
--- NOTE | 2023-01-12 18:41 | NUR ---
"Spiritual Care/Comfort Care Visit | Nurse Recommendation Pt. is a comfort care Pt. and is not responsive. Pts. two sons and Pts. [id number] are present and welcome my visit. Facilitated a life review of the Pt. and also considered matters of king and belief. Pts. sons seemed more engaged and excepting of the Pts. condition. Prayed for the Pt. and the boys. Family verbalized gratitude for the spiritual care visit and welcomed this home lending officer to return."
--- NOTE | 2023-01-13 00:16 | NUR ---
PATIENT TOD 2304. PATIENT'S MOTHER AND SON NOTIFIED. PATIENT'S SON WILL BE COMING BY TODAY TO MICA MACHINE OPERATOR PATIENT'S BELONGINGS (CLOTHING). PATIENT'S FAMILY DID NOT KNOW OF A HOME, INVESTIGATOR INTERNAL REVENUE WORKING ON PLACEMENT.
== END 2023-01-12 23:04 | DRG 602 ==
LOC: ER 21:21 → MEDS 21:22 → PCU 01-03 12:49 → MEDS 01-08 15:10 → PCU 01-11 08:32 → ICUE 01-11 09:25
PROVIDERS: Family Medicine; Internal Medicine; Pharmacist; Physician Assistant; ADMIT Internal Medicine
PROC: 5A09457 Assistance with Respiratory Ventilation, 24-96 Consecutive Hours, Continuous Positive Airway Pressure (ICD-10-PCS; principal; 2023-01-03)
PROC: 4A133R1 Monitoring of Arterial Saturation, Peripheral, Percutaneous Approach (ICD-10-PCS; 2023-01-04)
PROC: 5A0935A Assistance with Respiratory Ventilation, Less than 24 Consecutive Hours, High Flow/Velocity Cannula (ICD-10-PCS; 2023-01-07)
DX: L03.115 Cellulitis of right lower limb (principal); G93.41 Metabolic encephalopathy; I50.23 Acute on chronic systolic (congestive) heart failure; J96.02 Acute respiratory failure with hypercapnia; Z59.00 Homelessness unspecified; E87.3 Alkalosis; J44.1 Chronic obstructive pulmonary disease with (acute) exacerbation; L03.116 Cellulitis of left lower limb; Z51.5 Encounter for palliative care; Z66 Do not resuscitate; I48.91 Unspecified atrial fibrillation; E11.65 Type 2 diabetes mellitus with hyperglycemia; F17.210 Nicotine dependence, cigarettes, uncomplicated; F15.10 Other stimulant abuse, uncomplicated; F12.10 Cannabis abuse, uncomplicated; I07.1 Rheumatic tricuspid insufficiency; I95.9 Hypotension, unspecified; I27.20 Pulmonary hypertension, unspecified; Z86.19 Personal history of other infectious and parasitic diseases; Z98.890 Other specified postprocedural states; Z86.79 Personal history of other diseases of the circulatory system; Z91.148 Patient's other noncompliance with medication regimen for other reason; Z79.01 Long term (current) use of anticoagulants; Z79.84 Long term (current) use of oral hypoglycemic drugs; Z79.891 Long term (current) use of opiate analgesic
CPT/HCPCS: 36415; 36600; 51701; 71045; 80048; 80053; 80069; 80162; 80202; 81001; 82140; 82803; 82947; 83605; 83735; 83880; 84100; 84145; 84484; 85025; 85379; 85651; 86140; 87086; 93005; 93010; 94660; 94760; 94762; 96365; 96375; 99285-25; A9270; J0282; J0690; J1120; J1630; J1650; J1940; J2060; J2185; J2270; J2543; J3370; J7050; J7060